=== PATIENT | male | born 1955 | race American Indian/Alaskan Native ===

== ENCOUNTER 2021-08-29 13:41 | Emergency (ER) | payer BC ==
--- NOTE | 2021-08-29 14:43 | XRay Report ---
RIGHT FOOT 3 VIEWS INDICATION / CLINICAL INFORMATION: wound R foot. COMPARISON: None available. FINDINGS: BONES / JOINT(S): No acute fracture or subluxation. Moderate DJD first metatarsophalangeal joint. Ero keiko involving the distal aspect of the distal phalanx of the second digit. SOFT TISSUES: Soft tissue wound/thickening overlying the distal aspect of the second digit. ADDITIONAL FINDINGS: Atherosclerotic vascular calcification. IMPRESSION: 1. Osteomyelitis involving the distal aspect of the distal phalanx of the second digit with overlying soft tissue changes. 2. Moderate DJD first metatarsophalangeal joint. Signer Name: Rony García MD Signed: 08/29/2021 2:38 PM Workstation Name: [id number]
[2021-08-29 14:50] LABS: Hemoglobin 13.9 gm/dl (11.8-15.2); Mean Corpuscular HGB Conc 34 % (32-34); Mean Corpuscular Volume 98 fl (84-94); Platelet Count 152 K/mm3 (140-440); Red Blood Count 4.17 M/mm3 (3.65-5.03); Red Cell Distribution Width 12.3 % (13.2-15.2)
[2021-08-29 15:13] LABS: Alanine Aminotransferase 13 units/L (7-56); Albumin 4.2 g/dL (3.9-5); BUN/Creatinine Ratio 11; Blood Urea Nitrogen 9 mg/dL (9-20); Calcium 9.1 mg/dL (8.4-10.2); Hemolysis Index 9
[2021-08-30] MEDS ORDERED: VANCOMYCIN/NS 1 GM/250 ML 1 GM/250 ML BAG IV ONE (07:13)
--- NOTE | 2021-08-30 07:19 | Emergency Department Report ---
- General Chief Complaint: Wound/Laceration Stated Complaint: INFECTION RT FOOT Time Seen by Provider: 08/30/21 06:42 Source: patient Mode of arrival: Ambulatory Limitations: No Limitations - History of Present Illness Initial Comments: 66-year-old male with a history of diabetes who now presents with a right second toe infection that started about 2 to 3 weeks ago after the toe got stuck his toe against an object. He did no seek medical attention at that time. Infection continue to get worse he says. No fever or chills reported. No other modifying or associated factors reported. - Related Data Allergies Allergy/AdvReac Type Severity Reaction Status Date / Time No Known Allergies Allergy Verified 08/29/21 14:04 ED Review of Systems ROS: Stated complaint: INFECTION RT FOOT Other details as noted in HPI Comment: All other systems reviewed and negative Musculoskeletal: other (right 2nd toe injury and infection ) ED Past Medical Hx - Past Medical History Previous Medical History?: Yes Hx Diabetes: Yes - Social History Smoking Status: Never Smoker Substance Use Type: None ED Physical Exam - General Limitations: No Limitations General appearance: alert, in no apparent distress - Head Head exam: Present: normal inspection - Eye Eye exam: Present: normal appearance Pupils: Present: normal accommodation - ENT ENT exam: Present: normal exam, normal orophraynx, mucous membranes moist - Respiratory Respiratory exam: Present: normal lung sounds bilaterally. Absent: respiratory distress, accessory muscle use - Cardiovascular Cardiovascular Exam: Present: regular rate, normal rhythm, normal heart sounds - GI/Abdominal GI/Abdominal exam: Present: soft, normal bowel sounds. Absent: distended, tenderness - Extremities Exam Extremities exam: Present: tenderness (right 2nd toe with black escars ), joint swelling - Back Exam Back exam: Absent: tenderness - Neurological Exam Neurological exam: Present: alert, oriented X3 - Psychiatric Psychiatric exam: Present: normal affect, normal mood - Skin Skin exam: Present: warm. Absent: cyanosis ED Course Vital Signs 08/29/21 08/30/21 08/30/21 14:01 05:24 05:25 Temperature 98.1 F 97.7 F Pulse Rate 65 69 Respiratory 16 18 Rate Blood Pressure Blood Pressure 119/31 [Left] O2 Sat by Pulse 98 96 96 Oximetry 08/30/21 08/30/21 08/30/21 05:27 07:29 09:00 Temperature Pulse Rate 66 72 Respiratory 13 14 Rate Blood Pressure 149/50 Blood Pressure 157/62 149/62 [Left] O2 Sat by Pulse 100 98 Oximetry - Reevaluation(s) Reevaluation #1: 08/30/21 07:21 here with chronic right 2nd toe infection -- concern for osteomyelitis so we will go ahead and get an x-ray--and order routine labs that includes CBC, and CMP for any systemic infection or electrolyte abnormality-- Reevaluation #2: 08/30/21 07:22 right 2nd toe with black escars Xray noted with FINDINGS: BONES / JOINT(S): No acute fracture or subluxation. Moderate DJD first metatarsophalangeal joint. Erosion involving the distal aspect of the distal phalanx of the second digit. SOFT TISSUES: Soft tissue wound/thickening overlying the distal aspect of the second digit. ADDITIONAL FINDINGS: Atherosclerotic vascular calcification. IMPRESSION: 1. Osteomyelitis involving the distal aspect of the distal phalanx of the second digit with overlying soft tissue changes. 2. Moderate DJD first metatarsophalangeal joint. 08/30/21 07:24 Will go ahead and start vancomycin and consider admission since this patient lik tamir may need surgical debridement. Reevaluation #3: 08/30/21 12:44 I was informed by this patient bedside nurse that he decide to sign out AMA while was taken care of another patient in the main ED. ED Medical Decision Making - Lab Data Result diagrams: 08/29/21 14:31 08/29/21 14:31 Critical care attestation.: If time is entered above; I have spent that time in minutes in the direct care of this critically ill patient, excluding procedure time. ED Disposition Clinical Impression: Osteomyelitis of second toe of right foot Disposition: 07 LEFT AGAINST MEDICAL ADVICE Is pt being admited?: No Does the pt Need Aspirin: No Condition: Stable Referrals: PRIMARY CARE, [Primary Care Provider] - 3-5 Days Time of Disposition: 12:45
[2021-08-30 07:50] LABS: Bilirubin,Urine Negative (Negative); Color,Urine Colorless (Yellow)
[2021-08-30 07:51] LABS: Blood,Urine Trace (Negative)
[2021-08-30 07:52] LABS: PH,Urine 6.5 (5.0-7.0); Protein,Urine <15 mg/dL mg/dL (Negative)
[2021-08-30 09:19] VITALS: BP 149/62
== END 2021-08-30 09:19 | disposition left against medical advice (07) ==
LOC: ED 13:41
DX: M86.8X8 Other osteomyelitis, other site (principal); E11.9 Type 2 diabetes mellitus without complications
CPT/HCPCS: 36415; 73630; 80053; 81001; 82140; 85027; 87040; 96365; 96366; 99284; J3370

== ENCOUNTER 2021-09-04 09:53 | Inpatient (IN) | payer BC ==
[2021-09-04] MEDS ORDERED: SODIUM CHLORIDE 0.9% 1000 ML 1,000 ML IV ONE (15:12)
[2021-09-04 15:57] LABS: Basophils # (Auto) 0.1 K/mm3 (0.0-0.1); Basophils % (Auto) 0.9 % (0.0-1.8); Eosinophils % (Auto) 0.3 % (0.0-4.3); Hematocrit 39.9 % (35.5-45.6); Hemoglobin 13.2 gm/dl (11.8-15.2); Lymphocytes # (Auto) 1.9 K/mm3 (1.2-5.4); Lymphocytes % (Auto) 16.5 % (13.4-35.0); Mean Corpuscular HGB Conc 33 % (32-34); Mean Corpuscular Volume 97 fl (84-94); Monocytes # (Auto) 0.9 K/mm3 (0.0-0.8); Monocytes % (Auto) 7.9 % (0.0-7.3); Platelet Count 286 K/mm3 (140-440); Red Blood Count 4.14 M/mm3 (3.65-5.03); Red Cell Distribution Width 11.9 % (13.2-15.2)
--- NOTE | 2021-09-04 16:52 | Emergency Department Report ---
- General Chief complaint: Wound/Laceration Stated complaint: OPEN SORE ON TOE W/ODOR Time Seen by Provider: 09/04/21 15:02 Source: patient Mode of arrival: Ambulatory Limitations: No Limitations - History of Present Illness Initial comments: This is a 66-year-old male nontoxic, well nourished in appearance, no acute signs of distress presents to the ED with c/o of necrosis and pain to left 2nd toe. Patient was seen here previously and was post be admitted for IV antibiotics and possibly surgical procedures per patient left against medical vice. Patient stated return today for worsening symptoms and now has redness and swelling to left foot/ankle area. Patient denies any pus or drainage. Patient denies any fever, chills, nausea, vomiting, chest pain, shortness of breath, headache or stiff neck. Patient denies any allergies. Location: L foot Severity: moderate Severity scale (0 -10): 8 Quality: aching Consistency: constant Improves with: none Worsens with: none Associated symptoms: denies other symptoms Treatments Prior to Arrival: none - Related Data Allergies Allergy/AdvReac Type Severity Reaction Status Date / Time No Known Allergies Allergy Verified 08/29/21 14:04 Abscess Boil HPI - HPI Chief Complaint: Wound/Laceration Stated Complaint: OPEN SORE ON TOE W/ODOR Time Seen by Provider: 09/04/21 15:02 Allergies/Adverse Reactions: Allergies Allergy/AdvReac Type Severity Reaction Status Date / Time No Known Allergies Allergy Verified 08/29/21 14:04 ED Review of Systems ROS: Stated complaint: OPEN SORE ON TOE W/ODOR Other details as noted in HPI Comment: All other systems reviewed and negative Constitutional: denies: chills, fever Eyes: denies: eye pain, eye discharge, vision change ENT: denies: ear pain, throat pain Respiratory: denies: cough, shortness of breath, wheezing Cardiovascular: denies: chest pain, palpitations Endocrine: no symptoms reported Gastrointestinal: denies: abdominal pain, nausea, diarrhea Genitourinary: denies: urgency, dysuria Musculoskeletal: denies: back pain, joint swelling, arthralgia Skin: denies: rash, lesions Neurological: denies: headache, weakness, paresthesias Psychiatric: denies: anxiety, depression Hematological/Lymphatic: denies: easy bleeding, easy bruising ED Past Medical Hx - Past Medical History Hx Diabetes: Yes - Social History Smoking Status: Never Smoker Substance Use Type: None ED Physical Exam - General Limitations: No Limitations General appearance: alert, in no apparent distress - Head Head exam: Present: atraumatic, normocephalic - Eye Eye exam: Present: normal appearance - Neck Neck exam: Present: normal inspection, full ROM. Absent: lymphadenopathy - Respiratory Respiratory exam: Absent: respiratory distress - Cardiovascular Cardiovascular Exam: Present: regular rate - Extremities Exam Extremities exam: Present: tenderness, pedal edema - Expanded Lower Extremity Exam Right Hip exam: Present: normal inspection, full ROM. Absent: tenderness, swelling Upper Leg exam: Present: normal inspection, full ROM. Absent: tenderness, swelling Knee exam: Present: normal inspection, full ROM. Absent: tenderness, swelling Lower Leg exam: Present: full ROM, tenderness, swelling, erythema. Absent: abrasion, laceration, ecchymosis, deformity, crepidus, dislocation, palpable cord, Nilson's sign Ankle exam: Present: full ROM, tenderness, swelling, erythema. Absent: abrasion, laceration, ecchymosis, deformity, crepidus, dislocation, anterior draw sign Foot/Toe exam: Present: full ROM, tenderness, swelling, erythema. Absent: abr asion Neuro vascular tendon exam: Present: no vascular compromise Gait: Positive: observed and limited by pain 1 - Necrosis present here - Back Exam Back exam: Present: normal inspection, full ROM - Neurological Exam Neurological exam: Present: alert, oriented X3 - Psychiatric Psychiatric exam: Present: normal affect, normal mood - Skin Skin exam: Present: warm, dry, intact, normal color. Absent: rash ED Course Vital Signs 09/04/21 11:58 Temperature 97.9 F Pulse Rate 60 Respiratory 16 Rate Blood Pressure 113/41 [Left] O2 Sat by Pulse 100 Oximetry - Reevaluation(s) Reevaluation #1: 09/04/21 16:53 Patient is speaking in full sentences with no signs of distress noted. - Consultations Consultation #1: 09/04/21 16:53 Patient has been consulted with Fabian Correa about patient history, physical exam, and labs and agrees to ED plan of care and admission. Consultation #2: 09/04/21 17:57 Patient has been consulted with Dr. Land (surgery) about patient history, physical exam, and labs and patient to get a doppler US with addition of Unasyn IV with vancomycin and agrees for admission to hospitalist. Consultation #3: 09/04/21 18:04 Patient has been consulted with Dr. Ziegler (hospitalist) about patient history, physical exam, and labs and accepts patient to services. ED Medical Decision Making - Lab Data Result diagrams: 09/04/21 15:27 09/04/21 15:27 Lab Results 09/04/21 09/04/21 09/04/21 Range/Units 11:59 15:27 15:27 WBC 11.5 H (4.5-11.0) K/mm3 RBC 4.14 (3.65-5.03) M/mm3 Hgb 13.2 (11.8-15.2) gm/dl Hct 39.9 (35.5-45.6) % MCV 97 H (84-94) fl MCH 32 (28-32) pg MCHC 33 (32-34) % RDW 11.9 L (13.2-15.2) % Plt Count 286 (140-440) K/mm3 Lymph % (Auto) 16.5 (13.4-35.0) % [place] % (Auto) 7.9 H (0.0-7.3) % Eos % (Auto) 0.3 (0.0-4.3) % Baso % (Auto) 0.9 (0.0-1.8) % Lymph # (Auto) 1.9 (1.2-5.4) K/mm3 [place] # (Auto) 0.9 H (0.0-0.8) K/mm3 Eos # (Auto) 0.0 (0.0-0.4) K/mm3 Baso # (Auto) 0.1 (0.0-0.1) K/mm3 Seg Neutrophils % 74.4 H (40.0-70.0) % Seg Neutrophils # 8.6 H (1.8-7.7) K/mm3 Sodium 139 (137-145) mmol/L Potassium 4.1 (3.6-5.0) mmol/L Chloride 99.6 (98-107) mmol/L Carbon Dioxide 31 H (22-30) mmol/L Anion Gap 13 mmol/L BUN 6 L (9-20) mg/dL Creatinine 0.7 L (0.8-1.3) mg/dL Estimated GFR > 60 ml/min BUN/Creatinine Ratio 9 % Glucose 167 H (75-100) mg/dL POC Glucose 214 H (70-105) mg/dL Calcium 9.6 (8.4-10.2) mg/dL Total Bilirubin 0.70 (0.1-1.2) mg/dL AST 13 (5-40) units/L ALT 10 (7-56) units/L Alkaline Phosphatase 77 (35-129) units/L Total Protein 7.8 (6.3-8.2) g/dL Albumin 4.1 (3.9-5) g/dL Albumin/Globulin Ratio 1.1 % - Radiology Data [facility] [address] [place] [address] XRay Report Signed Patient: MICHELLE GREEN MR#: [id number] 2 : 1955 Acct:[id number] Age/Sex: 66 / M ADM Date: 08/29/21 Loc: ED Attending Dr: Ordering Physician: SINGH PINON Date of Service: 08/29/21 Procedure(s): XR foot 3+V RT Accession Number(s): [id number] cc: SINGH PINON Fluoro Time In Minutes: RIGHT FOOT 3 VIEWS INDICATION / CLINICAL INFORMATION: wound R foot. COMPARISON: None available. FINDINGS: BONES / JOINT(S): No acute fracture or subluxation. Moderate DJD first metatarsophalangeal joint. Erosion involving the distal aspect of the distal phalanx of the second digit. SOFT TISSUES: Soft tissue wound/thickening overlying the distal aspect of the second digit. ADDITIONAL FINDINGS: Atherosclerotic vascular calcification. IMPRESSION: 1. Osteomyelitis involving the distal aspect of the distal phalanx of the second digit with overlying soft tissue changes. 2. Moderate DJD first metatarsophalangeal joint. Signer Name: Rony García MD Signed: 08/29/2021 2:38 PM Workstation Name: [email or web address] Transcribed By: ES Dictated By: Rony García MD Electronically Authenticated By: Rony García MD Signed Date/Time: 08/29/211437 DD/ 36 TD/TT: - Medical Decision Making 66-year-old male that presents with necrosis, osteomyelitis and cellulitis. Patient stable and was examined by me. Patient admitted with hospitalist. Consulted with surgery and ED attending which agrees to the ED plan of care. IV antibiotics initiated. Doppler ultrasound ordered. Vitals stable at admission. At time of admission, the patient does not seem toxic or ill in appearance. No acute signs of distress noted. Patient agrees to admission treatment plan of care. No further questions noted by the patient. Critical care attestation.: If time is entered above; I have spent that time in minutes in the direct care of this critically ill patient, excluding procedure time. ED Disposition Clinical Impression: Osteomyelitis of second toe of right foot, Necrosis of toe Cellulitis Qualifiers: Site of cellulitis: extremity Site of cellulitis of extremity: toe Laterality: right Qualified Code(s): L03.031 - Cellulitis of right toe Disposition: ADMITTED INPATIENT Is pt being admited?: Yes Condition: Stable Time of Disposition: 16:54
[2021-09-04 16:59] LABS: Alanine Aminotransferase 10 units/L (7-56); Albumin 4.1 g/dL (3.9-5); Blood Urea Nitrogen 6 mg/dL (9-20); Calcium 9.6 mg/dL (8.4-10.2); Hemolysis Index 1
[2021-09-04 17:00] LABS: BUN/Creatinine Ratio 9
[2021-09-04] MEDS ORDERED: VANCOMYCIN/NS 1 GM/250 ML 1 GM/250 ML BAG IV ONE (17:59)
--- NOTE | 2021-09-04 18:10 | History and Physical Report ---
History of Present Illness Chief complaint: My toe is sore History of present illness: 66 YO Male with DM complicated by Diabetic foot ulcer presents to ED for evaluation. Patient reports "my toe is sore". Patient states that for the past week he has experienced soreness in his right foot and right second toe. Marielena ent previous seen and evaluated in the emergency department for the aforementioned symptoms but left AMA prior to completion of work-up. Patient represents today for right second toe soreness and right foot redness and swelling. Patient transported to [facility] via private vehicle for further care and e valuation of the aforementioned symptoms. The patient was seen and evaluated in the emergency department. All lab and imaging studies reviewed. Patient underwent x-ray of right foot and found to have findings consistent with right second toe osteomyelitis complicated by right foot cellulitis. Surgery team consulted in ED. Patient admitted to medical floor due to increased risk of worsening symptoms and initiated on IV antibiotic therapy. Patient denies fever, chills, chest pain, palpitation, productive cough, skin rash, recent contact, known exposure to COVID-19. No prior admission for review. No medication listed at time of admission for reconciliation. Advanced care planning conducted in ED. Past History Past Medical History: diabetes Past Surgical History: No surgical history, Other (Reviewed) Social history: single. denies: smoking, alcohol abuse, prescription drug abuse Family history: diabetes, hypertension Medications and Allergies Allergies Allergy/AdvReac Type Severity Reaction Status Date / Time No Known Allergies Allergy Verified 08/29/21 14:04 Active Meds: Active Medications Ampicillin Sodium/Sulbactam Sodium (Unasyn/Ns 3 Gm/100 Ml) 3 gm in 100 mls @ 200 mls/hr IV ONCE ONE; Protocol Stop: 09/04/21 18:59 Vancomycin HCl (Vancomycin/Ns 1 Gm/250 Ml) 1 gm in 250 mls @ 167.007 mls/hr IV ONCE ONE; Protocol Stop: 09/04/21 19:28 Review of Systems Constitutional: no weight loss, no weight gain, no fever, no chills Ears, nose, mouth and throat: no ear pain, no tinnitis, no nasal congestion, no nasal discharge Cardiovascular: no chest pain, no orthopnea, no palpitations, no rapid/irregular heart beat, no edema, no syncope Respiratory: no cough, no cough with sputum, no excessive sputum, no hemoptysis, no shortness of breath Gastrointestinal: no abdominal pain, no nausea, no vomiting, no diarrhea, no constipation Genitourinary Male: no hematuria, no flank pain, no discharge, no urinary frequency, no urinary hesitancy Rectal: no pain, no incontinence, no bleeding Musculoskeletal: no neck stiffness, no shooting arm pain, no low back pain Integumentary: redness, color changes, other (Right second toe dry gangrene/nec rosis), no rash, no pruritis, no sores, no wounds Neurological: no head injury, no transient paralysis, no weakness, no parathesias, no tingling, no syncope Psychiatric: no anxiety, no sleep disturbances, no hypersomnia, no suicidal ideation Endocrine: no cold intolerance, no heat intolerance, no polyphagia, no excessive thirst, no polyuria Hematologic/Lymphatic: no easy bruising, no easy bleeding Exam - Constitutional Vitals: Temp Pulse Resp BP Pulse Ox 97.9 F 60 16 113/41 100 09/04/21 11:58 09/04/21 11:58 09/04/21 11:58 09/04/21 11:58 09/04/21 11:58 General appearance: Present: mild distress - EENT Eyes: Present: PERRL ENT: hearing intact, clear oral mucosa - Neck Neck: Present: supple, normal ROM - Respiratory Respiratory effort: normal Respiratory: bilateral: CTA - Cardiovascular Heart Sounds: Present: S1 & S2. Absent: rub, click - Extremities Extremities: pulses symmetrical, No edema Extremity abnormal: edema, black, tenderness, other (Right second toe) Peripheral Pulses: within normal limits - Abdominal General gastrointestinal: Present: soft, non-tender, non-distended, normal bowel sounds Male genitourinary: Present: normal - Integumentary Integumentary: Present: clear, warm, dry - Musculoskeletal Musculoskeletal: gait normal, strength equal bilaterally - Psychiatric Psychiatric: appropriate mood/affect, intact judgment & insight - Neurologic Neurologic: CNII-XII intact, moves all extremities Results - Labs CBC & Chem 7: 09/04/21 15:27 09/04/21 15:27 Labs: Abnormal lab results 09/04/21 09/04/21 09/04/21 Range/Units 11:59 15:27 15:27 WBC 11.5 H (4.5-11.0) K/mm3 MCV 97 H (84-94) fl RDW 11.9 L (13.2-15.2) % [place] % (Auto) 7.9 H (0.0-7.3) % [place] # (Auto) 0.9 H (0.0-0.8) K/mm3 Seg Neutrophils % 74.4 H (40.0-70.0) % Seg Neutrophils # 8.6 H (1.8-7.7) K/mm3 Carbon Dioxide 31 H (22-30) mmol/L BUN 6 L (9-20) mg/dL Creatinine 0.7 L (0.8-1.3) mg/dL Glucose 167 H (75-100) mg/dL POC Glucose 214 H (70-105) mg/dL Assessment and Plan - Patient Problems (1) Osteomyelitis of second toe of right foot Current Visit: No Status: Acute Plan to address problem: X-ray right foot, surgery team consulted, empiric IV antibiotic therapy, supportive care. Wound care (2) Diabetes Current Visit: Yes Status: Acute Plan to address problem: Consistent carbohydrate diet, Accu-Chek, insulin protocol, hypoglycemia protocol (3) Cellulitis Current Visit: No Status: Acute Qualifiers: Site of cellulitis: extremity Site of cellulitis of extremity: toe Laterality: right Qualified Code(s): L03.031 - Cellulitis of right toe Plan to address problem: CBC, x-ray right foot, IV antibiotic therapy, supportive care. Serial physical exam. (4) DVT prophylaxis Current Visit: Yes Status: Acute Plan to address problem: SCD to bilateral lower extremities while in bed patient is ambulatory (5) Advance care planning Current Visit: Yes Status: Acute Plan to address problem: Disease education conducted, care plan discussed, diagnoses discussed, prognosis discussed, patient is full code. Patient knowledges understanding and agreement with care plan, +30 minutes. (6) Preventative health care Current Visit: Yes Status: Acute Plan to address problem: Patient counseled regarding consistent carbohydrate diet, meal planning, outpatient follow-up with primary care physician for all age and risk factor appropriate screening test. +30 minutes.
[2021-09-04] MEDS ORDERED: ALBUTEROL 2.5 MG/3 ML NEBU IH PRN (18:11)
[2021-09-04] MEDS ORDERED: AMPICILLIN/SULBACTA 3GM/100ML 3 GM/100 ML BAG IV ONE (18:30)
[2021-09-04] MEDS ORDERED: HYDROmorphone 0.5 MG/0.5 ML INJ IV PRN (18:30)
[2021-09-04] MEDS ORDERED: DEXTROSE 50% IN WATER (25GM) 50 ML SYRINGE IV PRN (18:30)
[2021-09-04] MEDS ORDERED: oxyCODONE /ACETAMINOPHEN 5-325MG TAB PO PRN (18:30)
[2021-09-04] MEDS ORDERED: ONDANSETRON 4 MG/2 ML INJ IV PRN (18:30)
--- NOTE | 2021-09-04 22:03 | Vascular Lab Report ---
DUPLEX DOPPLER LOWER EXTREMITY VEINS, RIGHT INDICATION / CLINICAL INFORMATION: right leg pain and swelling. TECHNIQUE: Duplex doppler imaging was performed through the veins of the right lower extremity using venous compression and other maneuvers. COMPARISON: None available. FINDINGS: RIGHT COMMON FEMORAL VEIN: Negative. RIGHT FEMORAL VEIN: Negative. RIGHT POPLITEAL VEIN: Negative. RIGHT CALF VEINS: Negative. ADDITIONAL FINDINGS: None. IMPRESSION: 1. No sonographic evidence for DVT in the right lower extremity. Signer Name: Nilson Jiménez DO Signed: 09/04/2021 9:59 PM Workstation Name: [id number]
[2021-09-04] MEDS: INSULIN LISPRO 100 UNIT/ML SUB-Q SCH (23:05)
[2021-09-05] MEDS: AMPICILLIN/SULBACTA 3GM/100ML 3 GM/100 ML BAG IV SCH ×4 (00:56→17:33)
[2021-09-05] MEDS: SODIUM CHLORIDE 0.9% 1000 ML 1,000 ML IV SCH (00:57)
[2021-09-05 05:53] LABS: Basophils # (Auto) 0.1 K/mm3 (0.0-0.1); Basophils % (Auto) 1.1 % (0.0-1.8); Eosinophils # (Auto) 0.1 K/mm3 (0.0-0.4); Eosinophils % (Auto) 0.6 % (0.0-4.3); Hematocrit 37.1 % (35.5-45.6); Hemoglobin 12.7 gm/dl (11.8-15.2); Lymphocytes # (Auto) 1.8 K/mm3 (1.2-5.4); Mean Corpuscular HGB Conc 34 % (32-34); Mean Corpuscular Volume 96 fl (84-94); Monocytes # (Auto) 0.8 K/mm3 (0.0-0.8); Platelet Count 265 K/mm3 (140-440); Red Blood Count 3.87 M/mm3 (3.65-5.03); Red Cell Distribution Width 11.8 % (13.2-15.2)
[2021-09-05 06:12] LABS: Blood Urea Nitrogen 5 mg/dL (9-20); Calcium 8.8 mg/dL (8.4-10.2); Hemolysis Index 7
[2021-09-05 06:19] LABS: BUN/Creatinine Ratio 8
[2021-09-05] MEDS: INSULIN LISPRO 100 UNIT/ML SUB-Q SCH ×4 (10:22→22:04)
--- NOTE | 2021-09-05 12:04 | Consultation ---
History of Present Illness Consult date: 09/05/21 Chief complaint: right 2nd toe infection - History of present illness History of present illness: 66 yo M with hx of diabetes who presents to ER with worsening pain in right 2nd toe. Patient states he bumped the toe several weeks ago and started to notice pain. He was seen by a room service waiter as an outpatient and some necrotic skin at the tip of the second toe was debrided in the office. He started to notice more pain and went to [facility] ER on 08/29/21. W/u included xray of the foot which revealed osteomyelitis of the right 2nd toe. Patient left AMA prior to completion of w/u. He returned to ER yesterday due to increased swelling, pain, redness of the right foot. The toe has since turned black. He states he has never had anything like this before. He has a family hx of DM and states his mother needed b/l BKAs 2/2 DM. He is on insulin at home and states he is compliant. He feels his DM is well controlled. Surgery consulted for diabetic foot wound. Past History Past Medical History: diabetes Past Surgical History: No surgical history, Other (Reviewed) Social history: single. denies: smoking, alcohol abuse, prescription drug abuse Family history: diabetes, hypertension Medications and Allergies Allergies Allergy/AdvReac Type Severity Reaction Status Date / Time No Known Allergies Allergy Verified 08/29/21 14:04 Home Medications Medication Instructions Recorded Confirmed Last Taken Type AtorvaSTATin [Lipitor] 10 mg PO QHS 09/05/21 09/05/21 Unknown History Cholecalciferol (Vitamin D3) 50,000 unit PO QWEEK 09/05/21 09/05/21 Unknown History [Vitamin D3 50,000UNIT CAP] Insulin Lispro Prot/Lispro 0 unit SQ BID 09/05/21 09/05/21 Unknown History [HumaLOG MIX 75/25] atenoloL [Tenormin] 25 mg PO DAILY 09/05/21 09/05/21 Unknown History ramipriL [Ramipril] 5 mg PO QDAY 09/05/21 09/05/21 Unknown History Active Meds: Active Medications Acetaminophen (Acetaminophen 325 Mg Tab) 650 mg PO Q4H PRN PRN Reason: Pain MILD(1-3)/Fever >100.5/LANIER Albuterol (Albuterol 2.5 Mg/3 Ml Nebu) 2.5 mg IH Q4HRT PRN PRN Reason: Shortness Of Breath Dextrose (Dextrose 50% In Water (25gm) 50 Ml Syringe) 50 ml IV Q30MIN PRN; Protocol PRN Reason: Hypoglycemia Hydromorphone HCl (Hydromorphone 0.5 Mg/0.5 Ml Inj) 0.5 mg IV Q13H PRN PRN Reason: Pain , Severe (7-10) Sodium Chloride (Nacl 0.9% 1000 Ml) 1,000 mls @ 42 mls/hr IV DIRECT NAZ Last Admin: 09/05/21 00:57 Dose: 42 mls/hr Ampicillin Sodium/Sulbactam Sodium (Unasyn/Ns 3 Gm/100 Ml) 3 gm in 100 mls @ 200 mls/hr IV Q6H [facility]; Protocol Last Infusion: 09/05/21 06:58 Dose: Infused Insulin Human Lispro (Insulin Lispro 100 Unit/Ml) 0 unit SUB-Q ACHS [facility]; Protocol Last Admin: 09/05/21 10:22 Dose: Not Given Ondansetron HCl (Ondansetron 4 Mg/2 Ml Inj) 4 mg IV Q8H PRN PRN Reason: Nausea And Vomiting Oxycodone/Acetaminophen (Oxycodone /Acetaminophen 5-325mg Tab) 1 tab PO Q6H PRN PRN Reason: Pain, Moderate (4-6) Sodium Chloride (Sodium Chloride 0.9% 10 Ml Flush Syringe) 10 ml IV BID [facility] Last Admin: 09/05/21 00:52 Dose: Not Given Sodium Chloride (Sodium Chloride 0.9% 10 Ml Flush Syringe) 10 ml IV PRN PRN PRN Reason: LINE FLUSH Review of Systems All systems: negative (10 pt ros performed and negative except for HPI) Exam Vital Signs Temp Pulse Resp BP Pulse Ox 97.9 F 60 16 113/41 100 09/04/21 11:58 09/04/21 11:58 09/04/21 11:58 09/04/21 11:58 09/04/21 11:58 Narrative exam: Gen; AAOx3. NAD ENT: no scleral icterus or conjunctival pallor CV: S1, S2+ Resp; even and unlabored Ext: RLE warm. There is edema of the dorsal aspect of the right foot with cellulitis. There is dry gangrene of the distal aspect of the right 2nd toe and purulent drainage from the medial aspect at the base. +TTP over MTP of right 2nd toe. Cannot palpate distal pulses. Results - Labs 09/05/21 05:38 09/05/21 05:38 Abnormal lab results 09/04/21 09/04/21 09/04/21 Range/Units 11:59 15:27 15:27 WBC 11.5 H (4.5-11.0) K/mm3 MCV 97 H (84-94) fl MCH (28-32) pg RDW 11.9 L (13.2-15.2) % [place] % (Auto) 7.9 H (0.0-7.3) % [place] # (Auto) 0.9 H (0.0-0.8) K/mm3 Seg Neutrophils % 74.4 H (40.0-70.0) % Seg Neutrophils # 8.6 H (1.8-7.7) K/mm3 Carbon Dioxide 31 H (22-30) mmol/L BUN 6 L (9-20) mg/dL Creatinine 0.7 L (0.8-1.3) mg/dL Glucose 167 H (75-100) mg/dL POC Glucose 214 H (70-105) mg/dL 09/04/21 09/05/21 09/05/21 Range/Units 22:56 05:38 05:38 WBC (4.5-11.0) K/mm3 MCV 96 H (84-94) fl MCH 33 H (28-32) pg RDW 11.8 L (13.2-15.2) % [place] % (Auto) 8.0 H (0.0-7.3) % [place] # (Auto) (0.0-0.8) K/mm3 Seg Neutrophils % 72.3 H (40.0-70.0) % Seg Neutrophils # (1.8-7.7) K/mm3 Carbon Dioxide (22-30) mmol/L BUN 5 L (9-20) mg/dL Creatinine 0.6 L (0.8-1.3) mg/dL Glucose 153 H (75-100) mg/dL POC Glucose 128 H (70-105) mg/dL 09/05/21 09/05/21 Range/Units 07:19 11:01 WBC (4.5-11.0) K/mm3 MCV (84-94) fl MCH (28-32) pg RDW (13.2-15.2) % [place] % (Auto) (0.0-7.3) % [place] # (Auto) (0.0-0.8) K/mm3 Seg Neutrophils % (40.0-70.0) % Seg Neutrophils # (1.8-7.7) K/mm3 Carbon Dioxide (22-30) mmol/L BUN (9-20) mg/dL Creatinine (0.8-1.3) mg/dL Glucose (75-100) mg/dL POC Glucose 155 H 210 H (70-105) mg/dL Diabetes panel 09/04/21 09/05/21 Range/Units 15:27 05:38 Sodium 139 140 (137-145) mmol/L Potassium 4.1 3.9 (3.6-5.0) mmol/L Chloride 99.6 102.5 (98-107) mmol/L Carbon Dioxide 31 H 28 (22-30) mmol/L BUN 6 L 5 L (9-20) mg/dL Creatinine 0.7 L 0.6 L (0.8-1.3) mg/dL Glucose 167 H 153 H (75-100) mg/dL Calcium 9.6 8.8 (8.4-10.2) mg/dL AST 13 (5-40) units/L ALT 10 (7-56) units/L Alkaline Phosphatase 77 (35-129) units/L Total Protein 7.8 (6.3-8.2) g/dL Albumin 4.1 (3.9-5) g/dL Calcium panel 09/04/21 09/05/21 Range/Units 15:27 05:38 Calcium 9.6 8.8 (8.4-10.2) mg/dL Albumin 4.1 (3.9-5) g/dL Pituitary panel 09/04/21 09/05/21 Range/Units 15:27 05:38 Sodium 139 140 (137-145) mmol/L Potassium 4.1 3.9 (3.6-5.0) mmol/L Chloride 99.6 102.5 (98-107) mmol/L Carbon Dioxide 31 H 28 (22-30) mmol/L BUN 6 L 5 L (9-20) mg/dL Creatinine 0.7 L 0.6 L (0.8-1.3) mg/dL Glucose 167 H 153 H (75-100) mg/dL Calcium 9.6 8.8 (8.4-10.2) mg/dL Adrenal panel 09/04/21 09/05/21 Range/Units 15:27 05:38 Sodium 139 140 (137-145) mmol/L Potassium 4.1 3.9 (3.6-5.0) mmol/L Chloride 99.6 102.5 (98-107) mmol/L Carbon Dioxide 31 H 28 (22-30) mmol/L BUN 6 L 5 L (9-20) mg/dL Creatinine 0.7 L 0.6 L (0.8-1.3) mg/dL Glucose 167 H 153 H (75-100) mg/dL Calcium 9.6 8.8 (8.4-10.2) mg/dL Total Bilirubin 0.70 (0.1-1.2) mg/dL AST 13 (5-40) units/L ALT 10 (7-56) units/L Alkaline Phosphatase 77 (35-129) units/L Total Protein 7.8 (6.3-8.2) g/dL Albumin 4.1 (3.9-5) g/dL - Imaging Additional studies: R foot xray U/s venous RLE Assessment and Plan 66 yo M with 1. Diabetes mellitus with right foot infection 2. Cellulitis right foot 3. Gangrene of right 2nd toe 4. Osteomyelitis right 2nd toe Plan: 1. diabetic diet 2. strict glucose control 3. obtain HbA1c 4. Obtain arterial duplex RLE. Suspect PAD. 5. Local wound care 6. Recommend amputation of right 2nd toe - will place consult to Dr. Sparks 7. IV abx - consider ID consult 8. Discussed details of imaging results and plan with patient and his sister at bedside. All questions answered. Thank you, please call with questions.
--- NOTE | 2021-09-05 16:21 | Vascular Lab Report ---
DUPLEX DOPPLER LOWER EXTREMITY ARTERIAL, RIGHT INDICATION / CLINICAL INFORMATION: right second toe gangrene. TECHNIQUE: Arterial duplex examination of the right lower extremity performed using B-mode, color krys w and spectral Doppler assessment. FINDINGS: RIGHT: Significant atherosclerotic plaque. Common Femoral Artery: PSV 117 cm/sec. Triphasic waveform. Proximal SFA: PSV 68 cm/sec. Monophasic waveform. Mid SFA: PSV 82 cm/sec. Monophasic waveform. Distal SFA: PSV 55 cm/sec. Monophasic waveform. Popliteal Artery: PSV 9 cm/sec. Monophasic waveform. Posterior tibial artery: PSV 42 cm/sec. Monophasic waveform. Dorsalis Pedis Artery: PSV 6 cm/sec. Monophasic waveform. ADDITIONAL FINDINGS: None. RIGHT EMILIE: Not calculated. IMPRESSION: 1. Findings suggestive of hemodynamically significant peripheral arterial disease including transitio n to abnormal monophasic waveforms from the mid right thigh to the crural arteries of the foreleg. da mpened velocities, as described above. Ankle-Brachial Index (EMILIE): - Calcified arteries > 1.4 - Normal = 0.9-1.4 - Mild PAD = 0.7-0.89 - Moderate PAD = 0.51-0.69 - Severe PAD < 0.5 Doppler Waveform: - Triphasic is normal. - Biphasic is abnormal if clear transition from triphasic signal along vascular tree. - Monophasic is abnormal. Scribed by: Zeenat Yuen RDMS, JOHNT, EMILY Scribed: 09/05/2021 1:25 PM I have reviewed the images, agree with this report, and edited this report as needed. Signer Name: Hubert Payne MD Signed: 09/05/2021 4:16 PM Workstation Name: [id number]
--- NOTE | 2021-09-05 20:10 | Consultation ---
History of Present Illness - Reason for Consult Consult date: 09/05/21 Peripheral Vascular Disease with Gangrene Requesting physician: MEHNAZ NULL - History of Present Illness The patient is a 66-year-old male with a history of diabetes who states that approximately 2 weeks ago he hit his second toe resulting in a wound. He initially presented to the emergency department on 08/29/2021 however he left AMA. He represented today with complaints of the wound progressively worsening with pain and turning black. He denies any fever or chills. He denies any history o f previous claudication. He states he smoked in his 20s however he does not currently smoke. He has no additional complaints at this time. Past History Past Medical History: diabetes Past Surgical History: No surgical history Social history: single. denies: smoking, alcohol abuse, prescription drug abuse Family history: diabetes, hypertension Medications and Allergies Allergies Allergy/AdvReac Type Severity Reaction Status Date / Time No Known Allergies Allergy Verified 08/29/21 14:04 Home Medications Medication Instructions Recorded Confirmed Last Taken Type AtorvaSTATin [Lipitor] 10 mg PO QHS 09/05/21 09/05/21 Unknown History Cholecalciferol (Vitamin D3) 50,000 unit PO QWEEK 09/05/21 09/05/21 Unknown History [Vitamin D3 50,000UNIT CAP] Insulin Lispro Prot/Lispro 0 unit SQ BID 09/05/21 09/05/21 Unknown History [HumaLOG MIX 75/25] atenoloL [Tenormin] 25 mg PO DAILY 09/05/21 09/05/21 Unknown History ramipriL [Ramipril] 5 mg PO QDAY 09/05/21 09/05/21 Unknown History Active Meds: Active Medications Acetaminophen (Acetaminophen 325 Mg Tab) 650 mg PO Q4H PRN PRN Reason: Pain MILD(1-3)/Fever >100.5/LANIER Albuterol (Albuterol 2.5 Mg/3 Ml Nebu) 2.5 mg IH Q4HRT PRN PRN Reason: Shortness Of Breath Dextrose (Dextrose 50% In Water (25gm) 50 Ml Syringe) 50 ml IV Q30MIN PRN; Protocol PRN Reason: Hypoglycemia Hydromorphone HCl (Hydromorphone 0.5 Mg/0.5 Ml Inj) 0.5 mg IV Q13H PRN PRN Reason: Pain , Severe (7-10) Sodium Chloride (Nacl 0.9% 1000 Ml) 1,000 mls @ 42 mls/hr IV DIRECT [facility] Last Admin: 09/05/21 00:57 Dose: 42 mls/hr Ampicillin Sodium/Sulbactam Sodium (Unasyn/Ns 3 Gm/100 Ml) 3 gm in 100 mls @ 200 mls/hr IV Q6H [facility]; Protocol Last Infusion: 09/05/21 19:39 Dose: Infused Insulin Human Lispro (Insulin Lispro 100 Unit/Ml) 0 unit SUB-Q ACHS [facility]; Protocol Last Admin: 09/05/21 17:37 Dose: 2 unit Ondansetron HCl (Ondansetron 4 Mg/2 Ml Inj) 4 mg IV Q8H PRN PRN Reason: Nausea And Vomiting Oxycodone/Acetaminophen (Oxycodone /Acetaminophen 5-325mg Tab) 1 tab PO Q6H PRN PRN Reason: Pain, Moderate (4-6) Sodium Chloride (Sodium Chloride 0.9% 10 Ml Flush Syringe) 10 ml IV BID [facility] Last Admin: 09/05/21 12:32 Dose: 10 ml Sodium Chloride (Sodium Chloride 0.9% 10 Ml Flush Syringe) 10 ml IV PRN PRN PRN Reason: LINE FLUSH Review of Systems All systems: negative Exam - Constitutional Vitals: Temp Pulse Resp BP Pulse Ox 99.2 F 68 18 162/69 100 09/05/21 16:21 09/05/21 16:21 09/05/21 16:21 09/05/21 16:21 09/05/21 16:21 General appearance: Present: no acute distress - Respiratory Respiratory effort: normal - Cardiovascular Rhythm: regular - Extremities Extremity abnormal: edema (Mild edema of the right leg and foot), black (Dry gangrene of the distal phalanx on the right second toe), pulses diminished (Nonpalpable pedal pulses bilaterally) - Abdominal General gastrointestinal: Present: soft Male genitourinary: Present: deferred - Rectal Rectal Exam: deferred Results - Labs CBC & Chem 7: 09/05/21 05:38 09/05/21 05:38 Labs: Abnormal lab results 09/04/21 09/05/21 09/05/21 Range/Units 22:56 05:38 05:38 MCV 96 H (84-94) fl MCH 33 H (28-32) pg RDW 11.8 L (13.2-15.2) % [place] % (Auto) 8.0 H (0.0-7.3) % Seg Neutrophils % 72.3 H (40.0-70.0) % BUN 5 L (9-20) mg/dL Creatinine 0.6 L (0.8-1.3) mg/dL Glucose 153 H (75-100) mg/dL POC Glucose 128 H (70-105) mg/dL 09/05/21 09/05/21 09/05/21 Range/Units 07:19 11:01 17:19 MCV (84-94) fl MCH (28-32) pg RDW (13.2-15.2) % [place] % (Auto) (0.0-7.3) % Seg Neutrophils % (40.0-70.0) % BUN (9-20) mg/dL Creatinine (0.8-1.3) mg/dL Glucose (75-100) mg/dL POC Glucose 155 H 210 H 171 H (70-105) mg/dL - Imaging and Cardiology Venous US: other (Right lower extremity arterial duplex was reviewed) Assessment and Plan The patient is a 66-year-old male with a history of diabetes and peripheral vascular disease who presented with gangrene involving the right second toe. He was evaluated by general surgery and an amputation of the right second toe was recommended. He had an arterial duplex of the right leg performed today which revealed monophasic flow throughout the SFA and the remainder of the lower extremity. B-mode demonstrated heavily calcified plaque within the SFA and popliteal artery as well as the tibial vessels. He is in need of a diagnostic angiogram and possible intervention prior to amputation of the toe to ensure adequate healing of his amputation. I discussed this plan as well as the risk, benefits, and alternative procedures with the patient as well as his sister via cellular phone. They both expressed understanding and the patient would like to proceed. He will be made n.p.o. after midnight and placed on the Clinical Faculty schedule for tomorrow.
[2021-09-06] MEDS: AMPICILLIN/SULBACTA 3GM/100ML 3 GM/100 ML BAG IV SCH ×3 (00:45→12:40)
--- NOTE | 2021-09-06 06:56 | Progress Note ---
Assessment and Plan Assessment and Plan - Patient Problems (1) Osteomyelitis of second toe of right foot Current Visit: No Status: Acute Plan to address problem: Gangrene of the right second toe Needs arterial studies to assess the peripheral arterial disease Surgery and vascular surgery consults appreciated Continue IV antibiotics (2) Diabetes Current Visit: Yes Status: Acute Plan to address problem: Consistent carbohydrate diet, Accu-Chek, insulin protocol, hypoglycemia protocol (3) Cellulitis Current Visit: No Status: Acute Qualifiers: Site of cellulitis: extremity Site of cellulitis of extremity: toe Laterality: right Qualified Code(s): L03.031 - Cellulitis of right toe Plan to address problem: CBC, x-ray right foot, IV antibiotic therapy, supportive care. Serial physical exam. (4) DVT prophylaxis Current Visit: Yes Status: Acute Plan to address problem: SCD to bilateral lower extremities while in bed patient is ambulatory (5) Advance care planning Current Visit: Yes Status: Acute Plan to address problem: Disease education conducted, care plan discussed, diagnoses discussed, prognosis discussed, patient is full code. Patient knowledges understanding and agreement with care plan, +30 minutes. (6) Preventative health care Current Visit: Yes Status: Acute Plan to address problem: Patient counseled regarding consistent carbohydrate diet, meal planning, outpatient follow-up with primary care physician for all age and risk factor appropriate screening test. +30 minutes. Subjective Date of service: 09/05/21 Principal diagnosis: Gangrene of the second toe of the right foot Interval history: 66 YO Male with DM complicated by Diabetic foot ulcer presents to ED for evaluation. Patient reports "my toe is sore". Patient states that for the past week he has experienced soreness in his right foot and right second toe. Patient previous seen and evaluated in the emergency department for the aforementioned symptoms but left AMA prior to completion of work-up. Patient represents today for right second toe soreness and right foot redness and swelling. Patient transported to [facility] via private vehicle for further care and evaluation of the aforementioned symptoms. The patient was seen and evaluated in the emergency department. All lab and imaging studies reviewed. Patient underwent x-ray of right foot and found to have findings consistent with right second toe osteomyelitis complicated by right foot cellulitis. Surgery team consulted in ED. Patient admitted to medical floor due to increased risk of wo rsening symptoms and initiated on IV antibiotic therapy. Patient denies fever, chills, chest pain, palpitation, productive cough, skin rash, recent contact, known exposure to COVID-19. No prior admission for review. No medication listed at time of admission for reconciliation. Advanced care planning conducted in ED. 09/05/2021 gangrene of the second toe of right foot Surgery and vascular surgery consult appreciated Objective - Constitutional Vitals: Vital Signs - 12hr 09/05/21 09/06/21 23:20 05:29 Temperature 98.9 F 99.4 F Pulse Rate 68 71 Respiratory 20 20 Rate Blood Pressure 155/59 145/46 O2 Sat by Pulse 95 97 Oximetry General appearance: Present: no acute distress, well-nourished - EENT Eyes: PERRL, EOM intact ENT: hearing intact, clear oral mucosa Ears: bilateral: normal - Neck Neck: supple, normal ROM - Respiratory Respiratory effort: normal Respiratory: bilateral: CTA - Breasts Breasts: normal - Cardiovascular Heart rate: 78 Rhythm: regular Heart Sounds: Present: S1 & S2. Absent: gallop, rub Extremities: pulses intact, No edema, normal color, Full ROM, abnormal (Gangrene of the second toe of the right foot) Extremity abnormal: other (RLE warm. There is edema of the dorsal aspect of the right foot with cellulitis. There is dry gangrene of the distal aspect of the right 2nd toe and purulent drainage from the medial aspect at the base. +TTP over MTP of right 2nd toe. Cannot palpate distal pulses.) - Gastrointestinal General gastrointestinal: Present: soft, non-tender, non-distended, normal bowel sounds - Genitourinary Male genitourinary: normal - Integumentary Integumentary: clear, warm, dry - Musculoskeletal Musculoskeletal: 1, strength equal bilaterally - Neurologic Neurologic: moves all extremities - Psychiatric Psychiatric: memory intact, appropriate mood/affect, intact judgment & insight - Labs CBC & Chem 7: 09/05/21 05:38 09/05/21 05:38 Labs: Abnormal lab results 09/05/21 09/05/21 09/05/21 Range/Units 07:19 11:01 17:19 POC Glucose 155 H 210 H 171 H (70-105) mg/dL 09/05/21 09/06/21 Range/Units 21:39 05:30 POC Glucose 198 H 183 H (70-105) mg/dL
[2021-09-06] MEDS: INSULIN LISPRO 100 UNIT/ML SUB-Q SCH ×4 (07:30→22:00)
[2021-09-06] MEDS ORDERED: SODIUM CHLORIDE 0.9% 500 ML 500 ML ONE (08:18)
[2021-09-06] MEDS: fentaNYL 100 MCG/2 ML INJ ONE ×2 (08:28→09:17)
[2021-09-06] MEDS: MIDAZOLAM 2 MG/2 ML INJ ONE ×2 (08:28→09:16)
[2021-09-06] MEDS: LIDOCAINE (2%) 20 MG/1 ML VIAL 50 ML MDV INFILTRATI ONE ×2 (08:28→09:19)
[2021-09-06] MEDS ORDERED: HEPARIN 10,000 UNITS/10 ML VIAL ONE (08:34)
[2021-09-06] MEDS ORDERED: VERAPAMIL 5 MG/2 ML INJ ONE (08:35)
[2021-09-06] MEDS ORDERED: NITROGLYCERIN SYRINGE 0 ML ONE (08:35)
[2021-09-06] MEDS: HEPARIN/NS 5000 UNIT/500ML 1,000 ML IR ONE ×2 (09:08→09:20)
--- NOTE | 2021-09-06 10:25 | Operative Report ---
Operative Report Operative Report: Exam: Right lower extremity angiography Clinical indication: Patient with a history of gangrenous toes on the right foot. Ultrasound demonstrating decreased flow within the SFA Date: 09/06/2021 Procedure: Following an explanation of the risks, benefits and alternatives; written informed consent was obtained. The patient was brought to the angiographic suite and placed in supine position on the examination table. Initial ultrasound evaluation of the left groin demonstrated a patent left common femoral artery. The patient's groin was prepped and draped in the usual sterile fashion. 2% lidocaine was used for anesthesia. Under ultrasound guidance, the left common femoral artery was cannulated using a 7 cm 21-gauge needle. A 0.018 guidewire was advanced centrally. The needle was removed and a micro sheath placed. The 0.018 guidewire was exchanged for a 0.035 guidewire under fluoroscopy and the micro sheath exchanged for a 5 [place] vascular sheath. An Omni Flush catheter was then advanced over the guidewire to the distal abdominal aorta. Contrast was injected which demonstrates that the distal abdominal aorta, bilateral common iliac, bilateral external iliac arteries are widely patent. The guidewire and Omni Flush catheter were then utilized to cross the bifurcation and additional angiography was performed with the catheter placed in the external iliac artery on the right. Multiple angulations were utilized ultimately, crosstable lateral demonstrated the bifurcation of SFA and profunda the best. There is scattered atherosclerotic disease within the common femoral artery. The profunda is dominant measuring 8 to 9 mm in diameter. There is a focal 1 cm sized marble of exophytic calcific atherosclerotic disease just distal to the origin of the SFA. This occludes the origin to approximately 99%. The 5 [place] sheath was then exchanged over a guidewire for a 6 [place] 45 cm sheath. Multiple attempts to cross the exophytic calcific disease in the proximal SFA were unsuccessful secondary to the bulky nature of the disease. Ultimately, decision was made to terminate the procedure and the catheters, guidewires and sheaths were removed and hemostasis achieved in the left groin using manual compression. A sterile dressing was applied. The patient tolerated the procedure well. There were no immediate postprocedure complications. Conscious sedation was performed under the guidance of radiologic nursing. Continuous cardiopulmonary monitoring was utilized. Impression: Right lower extremity angiography demonstrating 1cm marble of exophytic calcific atherosclerotic disease just distal to the origin of the SFA causing significantly decreased flow distally. This is not ideally amenable to percutaneous revascularization and the patient will be scheduled for right common femoral artery and SFA endarterectomy tomorrow scheduling in the OR permitting.
--- NOTE | 2021-09-06 10:34 | Progress Note ---
Assessment and Plan Assessment and plan: The patient is a 66-year-old male with a history of diabetes mellitus type II who states that approximately 2 weeks ago he hit his second toe resulting in a wound. He initially presented to the emergency department on 08/29/2021 however he left AMA. W/u included xray of the foot which revealed osteomyelitis of the right 2nd toe. He represented on 09/05/2021 with complaints of the wound progressively worsening with pain and turning black. He denied any fever or chills. He denied any history of previous claudication. He stated he smoked in his 20s however he does not currently smoke. Gangrene of right second toe Osteomyelitis of right second toe Right foot cellulitis Diabetes mellitus type 2 09/06/2021. Patient for right lower extremity angiography per vascular surgery. Right lower extremity angiography demonstrating 1cm marble of exophytic calcific atherosclerotic disease just distal to the origin of the SFA causing significantly decreased flow distally. This is not ideally amenable to percutaneous revascularization and the patient will be scheduled for right common femoral artery and SFA endarterectomy tomorrow scheduling in the OR permitting. Continue tight glycemic control. Follow-up hemoglobin A1c. Continue local wound care. Surgery following. ID consulted. Continue IV antibiotics of Unasyn for now. History Interval history: No new issues overnight Hospitalist Physical - Constitutional Vitals: Temp Pulse Resp BP Pulse Ox 99.4 F 71 20 145/46 97 09/06/21 05:29 09/06/21 05:29 09/06/21 05:29 09/06/21 05:29 09/06/21 05:29 General appearance: Present: no acute distress, well-nourished - EENT Eyes: Present: PERRL, EOM intact ENT: hearing intact, clear oral mucosa, dentition normal - Neck Neck: Present: supple, normal ROM - Respiratory Respiratory effort: normal Respiratory: bilateral: CTA - Cardiovascular Rhythm: regular Heart Sounds: Present: S1 & S2. Absent: gallop, rub - Extremities Extremities: no ischemia, No edema, Full ROM - Abdominal General gastrointestinal: soft, non-tender, non-distended, normal bowel sounds - Integumentary Integumentary: Present: clear, warm, dry - Neurologic Neurologic: CNII-XII intact, moves all extremities Results - Labs CBC & Chem 7: 09/05/21 05:38 09/05/21 05:38 Labs: Laboratory Last Values WBC 9.8 K/mm3 (4.5-11.0) 09/05/21 05:38 RBC 3.87 M/mm3 (3.65-5.03) 09/05/21 05:38 Hgb 12.7 gm/dl (11.8-15.2) 09/05/21 05:38 Hct 37.1 % (35.5-45.6) 09/05/21 05:38 MCV 96 fl (84-94) H 09/05/21 05:38 MCH 33 pg (28-32) H 09/05/21 05:38 MCHC 34 % (32-34) 09/05/21 05:38 RDW 11.8 % (13.2-15.2) L 09/05/21 05:38 Plt Count 265 K/mm3 (140-440) 09/05/21 05:38 Lymph % (Auto) 18.0 % (13.4-35.0) 09/05/21 05:38 [place] % (Auto) 8.0 % (0.0-7.3) H 09/05/21 05:38 Eos % (Auto) 0.6 % (0.0-4.3) 09/05/21 05:38 Baso % (Auto) 1.1 % (0.0-1.8) 09/05/21 05:38 Lymph # (Auto) 1.8 K/mm3 (1.2-5.4) 09/05/21 05:38 [place] # (Auto) 0.8 K/mm3 (0.0-0.8) 09/05/21 05:38 Eos # (Auto) 0.1 K/mm3 (0.0-0.4) 09/05/21 05:38 Baso # (Auto) 0.1 K/mm3 (0.0-0.1) 09/05/21 05:38 Seg Neutrophils % 72.3 % (40.0-70.0) H 09/05/21 05:38 Seg Neutrophils # 7.1 K/mm3 (1.8-7.7) 09/05/21 05:38 Sodium 140 mmol/L (137-145) 09/05/21 05:38 Potassium 3.9 mmol/L (3.6-5.0) 09/05/21 05:38 Chloride 102.5 mmol/L (98-107) 09/05/21 05:38 Carbon Dioxide 28 mmol/L (22-30) 09/05/21 05:38 Anion Gap 13 mmol/L 09/05/21 05:38 BUN 5 mg/dL (9-20) L 09/05/21 05:38 Creatinine 0.6 mg/dL (0.8-1.3) L 09/05/21 05:38 Estimated GFR > 60 ml/min 09/05/21 05:38 BUN/Creatinine Ratio 8 % 09/05/21 05:38 Glucose 153 mg/dL (75-100) H 09/05/21 05:38 POC Glucose 183 mg/dL (70-105) H 09/06/21 05:30 Hemoglobin A1c 6.5 % (4-6) H 09/06/21 07:06 Calcium 8.8 mg/dL (8.4-10.2) 09/05/21 05:38 Total Bilirubin 0.70 mg/dL (0.1-1.2) 09/04/21 15:27 AST 13 units/L (5-40) 09/04/21 15:27 ALT 10 units/L (7-56) 09/04/21 15:27 Alkaline Phosphatase 77 units/L (35-129) 09/04/21 15:27 Total Protein 7.8 g/dL (6.3-8.2) 09/04/21 15:27 Albumin 4.1 g/dL (3.9-5) 09/04/21 15:27 Albumin/Globulin Ratio 1.1 % 09/04/21 15:27 Hernadez/IV: Voiding Method Urinal Active Medications - Current Medications Current Medications: Generic Name Dose Route Start Last Admin Trade Name Freq PRN Reason Stop Dose Admin Acetaminophen 650 mg 09/04/21 18:30 Acetaminophen 325 Mg Tab PO Q4H PRN Pain MILD(1-3)/Fever >100.5/LANIER Albuterol 2.5 mg 09/04/21 18:11 Albuterol 2.5 Mg/3 Ml Nebu IH Q4HRT PRN Shortness Of Breath Atenolol 25 mg 09/06/21 12:00 Atenolol 25 Mg Tab PO DAILY NAZ Atorvastatin Calcium 10 mg 09/06/21 22:00 Atorvastatin 10 Mg Tab PO QHS NAZ Dextrose 50 ml 09/04/21 18:30 Dextrose 50% In Water (25gm) 50 Ml Syringe IV Q30MIN PRN Hypoglycemia Protocol Hydromorphone HCl 0.5 mg 09/04/21 18:30 Hydromorphone 0.5 Mg/0.5 Ml Inj IV Q13H PRN Pain , Severe (7-10) Sodium Chloride 1,000 mls @ 42 mls/hr 09/04/21 19:00 09/05/21 00:57 Nacl 0.9% 1000 Ml IV 42 mls/hr DIRECT NAZ Administration Ampicillin Sodium/Sulbactam Sodium 3 gm in 100 mls @ 200 mls/hr 09/05/21 00:00 09/06/21 05:07 Unasyn/Ns 3 Gm/100 Ml IV 200 mls/hr Q6H NAZ Administration Protocol Heparin Sodium/Sodium Chloride 25,000 unit in 500 mls @ 20.52 mls/hr 09/06/21 11:00 Heparin/ 0.45% Nacl-25,000 Unit/500 Ml IV TITR [facility] Protocol 15 UNITS/KG/HR Insulin Human Lispro 0 unit 09/04/21 22:00 09/06/21 07:30 Insulin Lispro 100 Unit/Ml SUB-Q Not Given ACHS [facility] Protocol Miscellaneous Medication 50,000 unit 09/13/21 10:00 Cholecalciferol (Vitamin D3) [Vitamin D3 50,000unit Cap] PO QWEEK [facility] Miscellaneous Medication 5 mg 09/07/21 10:00 Ramipril [Ramipril] PO QDAY [facility] Ondansetron HCl 4 mg 09/04/21 18:30 Ondansetron 4 Mg/2 Ml Inj IV Q8H PRN Nausea And Vomiting Oxycodone/Acetaminophen 1 tab 09/04/21 18:30 Oxycodone /Acetaminophen 5-325mg Tab PO Q6H PRN Pain, Moderate (4-6) Sodium Chloride 10 ml 09/04/21 22:00 09/05/21 22:06 Sodium Chloride 0.9% 10 Ml Flush Syringe IV 10 ml BID NAZ Administration Sodium Chloride 10 ml 09/04/21 18:30 Sodium Chloride 0.9% 10 Ml Flush Syringe IV PRN PRN LINE FLUSH
[2021-09-06] MEDS ORDERED: HEPARIN/ 0.45% NACL DRIP 25,000 UNIT/500 ML BAG IV SCH (11:00)
--- NOTE | 2021-09-06 11:14 | Progress Note ---
Assessment and Plan Patient underwent angiography today which demonstrated inflow exophytic calcification on his SFA with dominant flow from the profunda distally. The patient will be be brought to the OR tomorrow for common femoral artery and SFA endarterectomy. Given the high degree of stenosis at the origin of the SFA, the patient will be placed on a heparin drip low intensity protocol. Subjective Date of service: 09/06/21 Principal diagnosis: Gangrene of the second toe of the right foot Interval history: Patient with a history of diabetes and gangrene with osteomyelitis to the second toe of his right foot. Patient underwent procedure today. Not complaining of any pain. Objective - Constitutional Vitals: Vital Signs - 12hr 09/05/21 09/06/21 23:20 05:29 Temperature 98.9 F 99.4 F Pulse Rate 68 71 Respiratory 20 20 Rate Blood Pressure 155/59 145/46 O2 Sat by Pulse 95 97 Oximetry General appearance: Present: no acute distress - EENT Eyes: EOM intact ENT: hearing intact - Neck Neck: supple, normal ROM - Respiratory Respiratory effort: normal Extremities: abnormal - Gastrointestinal General gastrointestinal: Present: deferred Rectal Exam: deferred - Genitourinary Male genitourinary: deferred - Psychiatric Psychiatric: appropriate mood/affect, cooperative - Labs CBC & Chem 7: 09/05/21 05:38 09/05/21 05:38 Labs: Abnormal lab results 09/05/21 09/05/21 09/06/21 Range/Units 17:19 21:39 05:30 POC Glucose 171 H 198 H 183 H (70-105) mg/dL Hemoglobin A1c (4-6) % 09/06/21 Range/Units 07:06 POC Glucose (70-105) mg/dL Hemoglobin A1c 6.5 H (4-6) % Medications & Allergies - Medications Allergies/Adverse Reactions: Allergies No Known Allergies Allergy (Verified 09/06/21 08:06) Home Medications: Home Medications Medication Instructions Recorded Confirmed Last Taken Type AtorvaSTATin [Lipitor] 10 mg PO QHS 09/05/21 09/06/21 Unknown History Cholecalciferol (Vitamin D3) 50,000 unit PO QWEEK 09/05/21 09/06/21 Unknown History [Vitamin D3 50,000UNIT CAP] Insulin Lispro Prot/Lispro 0 unit SQ BID 09/05/21 09/06/21 Unknown History [HumaLOG MIX 75/25] atenoloL [Tenormin] 25 mg PO DAILY 09/05/21 09/06/21 Unknown History ramipriL [Ramipril] 5 mg PO QDAY 09/05/21 09/06/21 Unknown History Active Medications: Generic Name Dose Route Start Last Admin Trade Name Freq PRN Reason Stop Dose Admin Acetaminophen 650 mg 09/04/21 18:30 Acetaminophen 325 Mg Tab PO Q4H PRN Pain MILD(1-3)/Fever >100.5/LANIER Albuterol 2.5 mg 09/04/21 18:11 Albuterol 2.5 Mg/3 Ml Nebu IH Q4HRT PRN Shortness Of Breath Atenolol 25 mg 09/06/21 12:00 Atenolol 25 Mg Tab PO DAILY NAZ Atorvastatin Calcium 10 mg 09/06/21 22:00 Atorvastatin 10 Mg Tab PO QHS NAZ Dextrose 50 ml 09/04/21 18:30 Dextrose 50% In Water (25gm) 50 Ml Syringe IV Q30MIN PRN Hypoglycemia Protocol Ergocalciferol 50,000 unit 09/10/21 10:00 Ergocalciferol (Vit D2) 50,000 Unit Cap PO Mo@1000 NAZ Hydromorphone HCl 0.5 mg 09/04/21 18:30 Hydromorphone 0.5 Mg/0.5 Ml Inj IV Q13H PRN Pain , Severe (7-10) Sodium Chloride 1,000 mls @ 42 mls/hr 09/04/21 19:00 09/05/21 00:57 Nacl 0.9% 1000 Ml IV 42 mls/hr DIRECT NAZ Administration Ampicillin Sodium/Sulbactam Sodium 3 gm in 100 mls @ 200 mls/hr 09/05/21 00:00 09/06/21 05:07 Unasyn/Ns 3 Gm/100 Ml IV 200 mls/hr Q6H NAZ Administration Protocol Heparin Sodium/Sodium Chloride 25,000 unit in 500 mls @ 20 mls/hr 09/06/21 11:00 Heparin/ 0.45% Nacl-25,000 Unit/500 Ml IV TITR NAZ Protocol 1,000 UNITS/HR Insulin Human Lispro 0 unit 09/04/21 22:00 09/06/21 07:30 Insulin Lispro 100 Unit/Ml SUB-Q Not Given ACHS NAZ Protocol Lisinopril 10 mg 09/06/21 12:00 Lisinopril 10 Mg Tab PO QDAY [facility] Ondansetron HCl 4 mg 09/04/21 18:30 Ondansetron 4 Mg/2 Ml Inj IV Q8H PRN Nausea And Vomiting Oxycodone/Acetaminophen 1 tab 09/04/21 18:30 Oxycodone /Acetaminophen 5-325mg Tab PO Q6H PRN Pain, Moderate (4-6) Sodium Chloride 10 ml 09/04/21 22:00 09/05/21 22:06 Sodium Chloride 0.9% 10 Ml Flush Syringe IV 10 ml BID [facility] Administration Sodium Chloride 10 ml 09/04/21 18:30 Sodium Chloride 0.9% 10 Ml Flush Syringe IV PRN PRN LINE FLUSH
[2021-09-06] MEDS: LISINOPRIL 10 MG TAB PO SCH (12:40)
[2021-09-06 12:41] LABS: Hematocrit 37.2 % (35.5-45.6); Hemoglobin 12.6 gm/dl (11.8-15.2)
[2021-09-06] MEDS: atenoloL 25 MG TAB PO SCH (12:41)
[2021-09-06 13:03] LABS: INR 0.87 (0.87-1.13)
--- NOTE | 2021-09-06 13:41 | Progress Note ---
Assessment and Plan - Patient Problems (1) Gangrene of toe of right foot Current Visit: Yes Status: Acute Plan to address problem: 1) Right SFA endarterectomy tomorrow 2) I will be out of town Friday and Friday. 3) Right 2nd toe amputation could be scheduled for 09/10/21 or if needed, pt can be discharged and amputation can be scheduled as an outpt. If discharged, have pt f/u in my [facility] on 09/12/21. Subjective Date of service: 09/06/21 Patient Reports: Positive: no new complaints (Dr. Goetz's note read.) Objective Vital Signs - 12hr 09/06/21 09/06/21 09/06/21 05:29 10:00 11:55 Temperature 99.4 F 99.5 F Pulse Rate 71 75 Respiratory 20 22 Rate Blood Pressure 145/46 133/44 O2 Sat by Pulse 97 97 98 Oximetry - Musculoskeletal other (Dry gangrene of right 2nd toe noted.) - Labs 09/06/21 11:16 09/05/21 05:38 Diabetes panel 09/06/21 Range/Units 07:06 Hemoglobin A1c 6.5 H (4-6) %
--- NOTE | 2021-09-06 13:59 | Anesthesia Consultation ---
<REENA ANDREWS - Last Filed: 09/06/21 13:56> Anesthesia Consult and Med Hx Date of service: 09/07/21 - Airway Anesthetic Teeth Evaluation: Partials ROM Head & Neck: Adequate Mental/Hyoid Distance: Adequate Mallampati Class: Class I Intubation Access Assessment: Good - Cardiac Exam Cardiac Exam: RRR - Pre-Operative Health Status ASA Pre-Surgery Classification: ASA2 Proposed Anesthetic Plan: General, MAC - Pulmonary Hx Smoking: No Hx Asthma: No Hx Pneumonia: No Hx Sleep Apnea: No - Cardiovascular System Hx Hypertension: Yes - Central Nervous System Hx Neuromuscular Disorder: No Hx Seizures: No Hx Psychiatric Problems: No - Gastrointestinal Hx Gastroesophageal Reflux Disease: No - Endocrine Hx Insulin Dependent Diabetes: Yes - Other Systems Hx Alcohol Use: No Hx Cancer: No <YOSI HALEY - Last Filed: 09/07/21 09:23> Anesthesia Consult and Med Hx - Airway Anesthetic Teeth Evaluation: Partials ROM Head & Neck: Adequate Mental/Hyoid Distance: Adequate Mallampati Class: Class I Intubation Access Assessment: Good - Pre-Operative Health Status ASA Pre-Surgery Classification: ASA3 Proposed Anesthetic Plan: General - Cardiovascular System Hx Hypertension: Yes Hx Heart Attack/AMI: No Hx Peripheral Vascular Disease: Yes - Central Nervous System CVA: No - Endocrine Hx Renal Disease: No Hx Liver Disease: No Hx Insulin Dependent Diabetes: Yes - Additional Comments Anesthesia Medical History Comments: Examined immediately prior to procedure. No clinical change overnight. No hx anesthetic complications.
[2021-09-06] MEDS ORDERED: VANCOMYCIN 1,000 MG in SODIUM CHLORIDE 0.9% 500 ML 500 ML IV ONE (14:05)
--- NOTE | 2021-09-06 14:06 | Consultation ---
History of Present Illness - Reason for Consult Consult date: 09/06/21 gangrene of toe Requesting physician: MARIBEL BRADLEY - History of Present Illness The patient is a 66-year-old male with diabetes, used to smoke when he was in his 20s was admitted to the hospital with soreness in his right foot and darkening of his right second toe concerning for gangrene. X-ray showed findings concerning for osteomyelitis. DVT scan was negative. 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 Patient has also been seen by Dr. Sparks and has been recommended amputation of the toe. Patient otherwise denies any complaints at this time. He says the toe darkening has been gradually going on for the last 1 month. Review of Systems: General: no fevers,chills or rigors HEENT: no new visual disturbance Respiratory: No cough, sputum, hemoptysis or shortness of breath Cardiovascular: No chest pain, syncope Gastrointestinal: No nausea, vomiting or diarrhea Genitourinary: No dysuria or hematuria Musculoskeletal: No new or worsening neck pain or back pain Neurologic: No headaches, seizures Hematologic: No easy bruising or bleeding Endocrine: No night sweats or acute weight loss Skin: negative for rash, jaundice Psychiatric: No suicidal or homicidal ideation Past History Past Medical History: diabetes Past Surgical History: No surgical history Social history: single. denies: smoking, alcohol abuse, prescription drug abuse Family history: diabetes, hypertension Medications and Allergies Allergies Allergy/AdvReac Type Severity Reaction Status Date / Time No Known Allergies Allergy Verified 09/06/21 08:06 Home Medications Medication Instructions Recorded Confirmed Last Taken Type AtorvaSTATin [Lipitor] 10 mg PO QHS 09/05/21 09/06/21 Unknown History Cholecalciferol (Vitamin D3) 50,000 unit PO QWEEK 09/05/21 09/06/21 Unknown His tory [Vitamin D3 50,000UNIT CAP] Insulin Lispro Prot/Lispro 0 unit SQ BID 09/05/21 09/06/21 Unknown History [HumaLOG MIX 75/25] atenoloL [Tenormin] 25 mg PO DAILY 09/05/21 09/06/21 Unknown History ramipriL [Ramipril] 5 mg PO QDAY 09/05/21 09/06/21 Unknown History Active Meds: Active Medications Acetaminophen (Acetaminophen 325 Mg Tab) 650 mg PO Q4H PRN PRN Reason: Pain MILD(1-3)/Fever >100.5/LANIER Albuterol (Albuterol 2.5 Mg/3 Ml Nebu) 2.5 mg IH Q4HRT PRN PRN Reason: Shortness Of Breath Atenolol (Atenolol 25 Mg Tab) 25 mg PO DAILY NAZ Last Admin: 09/06/21 12:41 Dose: 25 mg Atorvastatin Calcium (Atorvastatin 10 Mg Tab) 10 mg PO QHS NAZ Dextrose (Dextrose 50% In Water (25gm) 50 Ml Syringe) 50 ml IV Q30MIN PRN; Protocol PRN Reason: Hypoglycemia Ergocalciferol (Ergocalciferol (Vit D2) 50,000 Unit Cap) 50,000 unit PO Mo@1000 NAZ Hydromorphone HCl (Hydromorphone 0.5 Mg/0.5 Ml Inj) 0.5 mg IV Q13H PRN PRN Reason: Pain , Severe (7-10) Last Admin: 09/06/21 11:42 Dose: 0.5 mg Sodium Chloride (Nacl 0.9% 1000 Ml) 1,000 mls @ 42 mls/hr IV DIRECT NAZ Last Admin: 09/05/21 00:57 Dose: 42 mls/hr Heparin Sodium/Sodium Chloride (Heparin/ 0.45% Nacl-25,000 Unit/500 Ml) 25,000 unit in 500 mls @ 20 mls/hr IV TITR NAZ; Protocol Last Admin: 09/06/21 13:54 Dose: 1,000 units/hr, 20 mls/hr Ceftriaxone Sodium (Rocephin/Ns 1 Gm/50 Ml) 1 gm in 50 mls @ 100 mls/hr IV Q24HR NAZ; Protocol Vancomycin HCl 1,000 mg/ (Sodium Chloride) 520 mls @ 333 mls/hr IV ONCE ONE; Protocol Stop: 09/06/21 15:35 Insulin Human Isoph/Insulin Regular (Insulin Nph/Regular 70/30 Inj) 6 unit SUB- Q BIDDIAB NAZ Insulin Human Lispro (Insulin Lispro 100 Unit/Ml) 0 unit SUB-Q ACHS NAZ; Protocol Last Admin: 09/06/21 11:30 Dose: Not Given Lisinopril (Lisinopril 10 Mg Tab) 10 mg PO QDAY [facility] Last Admin: 09/06/21 12:40 Dose: 10 mg Ondansetron HCl (Ondansetron 4 Mg/2 Ml Inj) 4 mg IV Q8H PRN PRN Reason: Nausea And Vomiting Oxycodone/Acetaminophen (Oxycodone /Acetaminophen 5-325mg Tab) 1 tab PO Q6H PRN PRN Reason: Pain, Moderate (4-6) Sodium Chloride (Sodium Chloride 0.9% 10 Ml Flush Syringe) 10 ml IV BID [facility] Last Admin: 09/06/21 10:00 Dose: 10 ml Sodium Chloride (Sodium Chloride 0.9% 10 Ml Flush Syringe) 10 ml IV PRN PRN PRN Reason: LINE FLUSH Physical Examination - Physical Exam Narrative exam: Physical Exam: Constitutional: Alert, cooperative. No acute distress Head, Ears, Nose: Normocephalic, atraumatic. External ears, nose normal Eyes: Conjunctivae/corneas clear. No icterus. No ptosis. Neck: Supple, no meningeal signs Oral: Mask Cardiovascular: S1, S2 + Respiratory: Good air entry, clear to auscultation bilaterally GI: Soft, non-tender; bowel sounds normal. No peritoneal signs Musculoskeletal: Right leg distally with skin darkening, second toe with gangrenous changes. Skin: No rash or abscess Hem/Lymphatic: No palpable cervical or supraclavicular nodes. No lymphangitis Psych: Mood ok. Affect normal Neurological: Awake, alert, oriented. No gross abnormality - Constitutional Vitals: Vital Signs Temp Pulse Resp BP Pulse Ox 99.5 F 75 22 133/44 98 09/06/21 11:55 09/06/21 11:55 09/06/21 11:55 09/06/21 11:55 09/06/21 11:55 Temperature -Last 24 Hours Temperature 99.5 F Temperature 99.4 F Temperature 98.9 F Temperature 99.2 F Results - Labs CBC & Chem 7: 09/06/21 11:16 09/05/21 05:38 Labs: Abnormal lab results 09/05/21 09/05/21 09/06/21 Range/Units 17:19 21:39 05:30 POC Glucose 171 H 198 H 183 H (70-105) mg/dL Hemoglobin A1c (4-6) % 09/06/21 09/06/21 Range/Units 07:06 11:56 POC Glucose 154 H (70-105) mg/dL Hemoglobin A1c 6.5 H (4-6) % Assessment and Plan Cultures: None A/P: 66-year-old male with diabetes, used to smoke when he was in his 20s was admitted to the hospital with soreness in his right foot and darkening of his right second toe concerning for gangrene: #Right second toe gangrene and associated osteomyelitis, peripheral vascular disease: Osteomyelitis seems more ischemic. Has significant peripheral vascular disease and is planned for right FIRE ALARM INSTALLER and SFA endarterectomy in the operating room. Patient has also been seen by Dr. Sparks and has been recommended amputation of the toe. #Peripheral vascular disease #Diabetes mellitus type 2 Recs: -Empiric ceftriaxone, vancomycin, target vancomycin trough between 10 to 15 mc g/mL -Follow-up surgical revascularization -Awaiting to amputation, stop antibiotics 48 hours after procedure Ernestine Nair MD, [facility] ([facility]) O: [phone] F: [phone] C: [phone]
[2021-09-06] MEDS: cefTRIAXone/NS 1 GM/50 ML 1 GM/50 ML BAG IV SCH (14:59)
[2021-09-06] MEDS ORDERED: VANCOMYCIN/NS 1 GM/250 ML 1 GM/250 ML BAG IV ONE (15:00)
[2021-09-06] MEDS ORDERED: VANCOMYCIN PHARMACY TO DOSE IV SCH (15:00)
[2021-09-06 15:05] LABS: Partial Thromboplastin Time 34.8 Sec. (24.2-36.6)
[2021-09-06] MEDS: INSULIN NPH/REGULAR 70/30 INJ SUB-Q SCH (17:33)
[2021-09-07] MEDS ORDERED: MIDAZOLAM 2 MG/2 ML INJ IV NR (06:00)
[2021-09-07] MEDS: VANCOMYCIN/NS 1 GM/250 ML 1 GM/250 ML BAG IV SCH ×2 (06:44→17:08)
[2021-09-07] MEDS: INSULIN LISPRO 100 UNIT/ML SUB-Q SCH ×4 (07:11→22:20)
[2021-09-07 07:19] LABS: Basophils % (Auto) 0.3 % (0.0-1.8); Eosinophils # (Auto) 0.1 K/mm3 (0.0-0.4); Eosinophils % (Auto) 1.1 % (0.0-4.3); Hematocrit 39.9 % (35.5-45.6); Hemoglobin 13.3 gm/dl (11.8-15.2); Lymphocytes # (Auto) 1.8 K/mm3 (1.2-5.4); Lymphocytes % (Auto) 16.5 % (13.4-35.0); Mean Corpuscular HGB Conc 33 % (32-34); Mean Corpuscular Volume 96 fl (84-94); Monocytes # (Auto) 0.8 K/mm3 (0.0-0.8); Monocytes % (Auto) 7.3 % (0.0-7.3); Platelet Count 338 K/mm3 (140-440); Red Blood Count 4.14 M/mm3 (3.65-5.03)
[2021-09-07 07:50] LABS: Blood Urea Nitrogen 5 mg/dL (9-20); Calcium 9.2 mg/dL (8.4-10.2); Hemolysis Index 2
[2021-09-07 08:03] LABS: BUN/Creatinine Ratio 8
[2021-09-07] MEDS: INSULIN NPH/REGULAR 70/30 INJ SUB-Q SCH ×2 (08:03→19:55)
--- NOTE | 2021-09-07 08:58 | Progress Note ---
Assessment and Plan Cultures: None A/P: 66-year-old male with diabetes, used to smoke when he was in his 20s was adm itted to the hospital with soreness in his right foot and darkening of his right second toe concerning for gangrene: #Right second toe gangrene and associated osteomyelitis, peripheral vascular disease: Osteomyelitis seems more ischemic. Has significant peripheral vascular disease and is planned for right [employer] and SFA endarterectomy in the operating room. Patient has also been seen by Dr. Sparks and has been recommended amputation of the toe. #Peripheral vascular disease #Diabetes mellitus type 2 Recs: -Empiric ceftriaxone, vancomycin, target vancomycin trough between 10 to 15 mcg/mL -s/p surgical revascularization -Awaiting to amputation, stop antibiotics 48 hours after procedure Yuly Payan MD [facility] ([facility]) O: [phone] F: [phone] Subjective Date of service: 09/07/21 Principal diagnosis: Gangrene of the second toe of the right foot Interval history: Afebrile, white count 11.1. No acute issues. Objective - Exam Narrative Exam: Physical Exam: Constitutional: Alert, cooperative. No acute distress Head, Ears, Nose: Normocephalic, atraumatic. External ears, nose normal Eyes: Conjunctivae/corneas clear. No icterus. No ptosis. Neck: Supple, no meningeal signs Oral: Mask Cardiovascular: S1, S2 + Respiratory: Good air entry, clear to auscultation bilaterally GI: Soft, non-tender; bowel sounds normal. No peritoneal signs Musculoskeletal: Right leg distally with skin darkening, second toe with gangrenous changes. Skin: No rash or abscess Hem/Lymphatic: No palpable cervical or supraclavicular nodes. Psych: Mood ok. Affect normal Neurological: Awake, alert, oriented. No gross abnormality - Constitutional Vitals: Vital Signs Temp Pulse Resp BP Pulse Ox 99.4 F 71 18 115/45 98 09/07/21 05:39 09/07/21 05:39 09/07/21 05:39 09/07/21 05:39 09/07/21 07:16 Temperature -Last 24 Hours Temperature 99.4 F Temperature 99.5 F Temperature 99.3 F Temperature 99.5 F - Labs CBC & Chem 7: 09/07/21 06:35 09/07/21 06:36 Labs: Abnormal lab results 09/06/21 09/06/21 09/06/21 Range/Units 11:56 17:11 19:51 WBC (4.5-11.0) K/mm3 MCV (84-94) fl RDW (13.2-15.2) % Seg Neutrophils % (40.0-70.0) % Seg Neutrophils # (1.8-7.7) K/mm3 Heparin Anti-Xa Level 0.19 L (0.3-0.7) U.I./ml BUN (9-20) mg/dL Creatinine (0.8-1.3) mg/dL Glucose (75-100) mg/dL POC Glucose 154 H 166 H (70-105) mg/dL 09/06/21 09/07/21 09/07/21 Range/Units 21:57 06:35 06:36 WBC 11.1 H (4.5-11.0) K/mm3 MCV 96 H (84-94) fl RDW 12.0 L (13.2-15.2) % Seg Neutrophils % 74.8 H (40.0-70.0) % Seg Neutrophils # 8.3 H (1.8-7.7) K/mm3 Heparin Anti-Xa Level (0.3-0.7) U.I./ml BUN 5 L (9-20) mg/dL Creatinine 0.6 L (0.8-1.3) mg/dL Glucose 155 H (75-100) mg/dL POC Glucose 126 H (70-105) mg/dL 09/07/21 Range/Units 07:40 WBC (4.5-11.0) K/mm3 MCV (84-94) fl RDW (13.2-15.2) % Seg Neutrophils % (40.0-70.0) % Seg Neutrophils # (1.8-7.7) K/mm3 Heparin Anti-Xa Level (0.3-0.7) U.I./ml BUN (9-20) mg/dL Creatinine (0.8-1.3) mg/dL Glucose (75-100) mg/dL POC Glucose 151 H (70-105) mg/dL
[2021-09-07] MEDS ORDERED: HYDROmorphone 0.5 MG/0.5 ML INJ IV PRN (09:24)
--- NOTE | 2021-09-07 09:24 | Anesthesia Day of Surgery ---
Anesthesia Day of Surgery - Day of Surgery Patient Examined: Yes Patient H&P Reviewed: Yes Patient is NPO: Yes
[2021-09-07] MEDS ORDERED: ceFAZolin/Water 2 GM/20 ML 2 GM/20 ML SYRINGE IV NR (10:00)
[2021-09-07] MEDS ORDERED: RAMIPRIL 5 MG PO SCH (10:00)
[2021-09-07] MEDS: LACTATED RINGERS 1,000 ML IV SCH ×2 (10:10→17:03)
--- NOTE | 2021-09-07 10:15 | Progress Note ---
Assessment and Plan Assessment and plan: The patient is a 66-year-old male with a history of diabetes mellitus type II who states that approximately 2 weeks ago he hit his second toe resulting in a wound. He initially presented to the emergency department on 08/29/2021 however he left AMA. W/u included xray of the foot which revealed osteomyelitis of the right 2nd toe. He represented on 09/05/2021 with complaints of the wound progressively worsening with pain and turning black. He denied any fever or chills. He denied any history of previous claudication. He stated he smoked in his 20s however he does not currently smoke. Gangrene of right second toe Osteomyelitis of right second toe Right foot cellulitis Diabetes mellitus type 2 09/06/2021. Patient for right lower extremity angiography per vascular surgery. Right lower extremity angiography demonstrating 1cm marble of exophytic calcific atherosclerotic disease just distal to the origin of the SFA causing significantly decreased flow distally. This is not ideally amenable to percutaneous revascularization and the patient will be scheduled for right common femoral artery and SFA endarterectomy tomorrow scheduling in the OR permitting. Continue tight glycemic control. Follow-up hemoglobin A1c. Continue local wound care. Surgery following. ID consulted. Continue IV antibiotics of Unasyn for now. 09/07/2021. Patient for endarterectomy today per vascular surgery. Continue tight glycemic control. Follow-up hemoglobin A1c. Continue local wound care. Surgery following. ID recommends empiric ceftriaxone and vancomycin. Patient for amputation likely next week. We will stop antibiotics 48 hours after procedure. History Interval history: No new issues overnight Hospitalist Physical - Constitutional Vitals: Temp Pulse Resp BP Pulse Ox 99.4 F 71 18 115/45 98 09/07/21 05:39 09/07/21 05:39 09/07/21 05:39 09/07/21 05:39 09/07/21 07:16 General appearance: Present: no acute distress - EENT Eyes: Present: PERRL, EOM intact ENT: hearing intact, clear oral mucosa, dentition normal - Neck Neck: Present: supple, normal ROM - Respiratory Respiratory effort: normal Respiratory: bilateral: CTA - Cardiovascular Rhythm: regular Heart Sounds: Present: S1 & S2. Absent: gallop, rub - Extremities Extremities: no ischemia, No edema, Full ROM - Abdominal General gastrointestinal: soft, non-tender, non-distended, normal bowel sounds - Integumentary Integumentary: Present: clear, warm, dry - Neurologic Neurologic: CNII-XII intact, moves all extremities Results - Labs CBC & Chem 7: 09/07/21 06:35 09/07/21 06:36 Labs: Laboratory Last Values WBC 11.1 K/mm3 (4.5-11.0) H 09/07/21 06:35 RBC 4.14 M/mm3 (3.65-5.03) 09/07/21 06:35 Hgb 13.3 gm/dl (11.8-15.2) 09/07/21 06:35 Hct 39.9 % (35.5-45.6) 09/07/21 06:35 MCV 96 fl (84-94) H 09/07/21 06:35 MCH 32 pg (28-32) 09/07/21 06:35 MCHC 33 % (32-34) 09/07/21 06:35 RDW 12.0 % (13.2-15.2) L 09/07/21 06:35 Plt Count 338 K/mm3 (140-440) 09/07/21 06:35 Lymph % (Auto) 16.5 % (13.4-35.0) 09/07/21 06:35 [place] % (Auto) 7.3 % (0.0-7.3) 09/07/21 06:35 Eos % (Auto) 1.1 % (0.0-4.3) 09/07/21 06:35 Baso % (Auto) 0.3 % (0.0-1.8) 09/07/21 06:35 Lymph # (Auto) 1.8 K/mm3 (1.2-5.4) 09/07/21 06:35 [place] # (Auto) 0.8 K/mm3 (0.0-0.8) 09/07/21 06:35 Eos # (Auto) 0.1 K/mm3 (0.0-0.4) 09/07/21 06:35 Baso # (Auto) 0.0 K/mm3 (0.0-0.1) 09/07/21 06:35 Seg Neutrophils % 74.8 % (40.0-70.0) H 09/07/21 06:35 Seg Neutrophils # 8.3 K/mm3 (1.8-7.7) H 09/07/21 06:35 PT 12.8 Sec. (12.2-14.9) 09/06/21 11:16 INR 0.87 (0.87-1.13) 09/06/21 11:16 APTT 34.8 Sec. (24.2-36.6) 09/06/21 11:16 Heparin Anti-Xa Level 0.19 U.I./ml (0.3-0.7) L 09/06/21 19:51 Sodium 138 mmol/L (137-145) 09/07/21 06:36 Potassium 4.0 mmol/L (3.6-5.0) 09/07/21 06:36 Chloride 99.2 mmol/L (98-107) 09/07/21 06:36 Carbon Dioxide 29 mmol/L (22-30) 09/07/21 06:36 Anion Gap 14 mmol/L 09/07/21 06:36 BUN 5 mg/dL (9-20) L 09/07/21 06:36 Creatinine 0.6 mg/dL (0.8-1.3) L 09/07/21 06:36 Estimated GFR > 60 ml/min 09/07/21 06:36 BUN/Creatinine Ratio 8 % 09/07/21 06:36 Glucose 155 mg/dL (75-100) H 09/07/21 06:36 POC Glucose 151 mg/dL (70-105) H 09/07/21 07:40 Hemoglobin A1c 6.5 % (4-6) H 09/06/21 07:06 Calcium 9.2 mg/dL (8.4-10.2) 09/07/21 06:36 Total Bilirubin 0.70 mg/dL (0.1-1.2) 09/04/21 15:27 AST 13 units/L (5-40) 09/04/21 15:27 ALT 10 units/L (7-56) 09/04/21 15:27 Alkaline Phosphatase 77 units/L (35-129) 09/04/21 15:27 Total Protein 7.8 g/dL (6.3-8.2) 09/04/21 15:27 Albumin 4.1 g/dL (3.9-5) 09/04/21 15:27 Albumin/Globulin Ratio 1.1 % 09/04/21 15:27 Blood Type A POSITIVE 09/07/21 04:00 Antibody Screen Negative 09/07/21 04:00 Hernadez/IV: Voiding Method Toilet Active Medications - Current Medications Current Medications: Generic Name Dose Route Start Last Admin Trade Name Freq PRN Reason Stop Dose Admin Acetaminophen 650 mg 09/04/21 18:30 Acetaminophen 325 Mg Tab PO Q4H PRN Pain MILD(1-3)/Fever >100.5/LANIER Albuterol 2.5 mg 09/04/21 18:11 Albuterol 2.5 Mg/3 Ml Nebu IH Q4HRT PRN Shortness Of Breath Atenolol 25 mg 09/06/21 12:00 09/06/21 12:41 Atenolol 25 Mg Tab PO 25 mg DAILY NAZ Administration Atorvastatin Calcium 10 mg 09/06/21 22:00 09/06/21 21:14 Atorvastatin 10 Mg Tab PO 10 mg QHS NAZ Administration Dextrose 50 ml 09/04/21 18:30 Dextrose 50% In Water (25gm) 50 Ml Syringe IV Q30MIN PRN Hypoglycemia Protocol Ergocalciferol 50,000 unit 09/10/21 10:00 Ergocalciferol (Vit D2) 50,000 Unit Cap PO Mo@1000 NAZ Hydromorphone HCl 0.5 mg 09/04/21 18:30 09/06/21 11:42 Hydromorphone 0.5 Mg/0.5 Ml Inj IV 0.5 mg Q13H PRN Administration Pain , Severe (7-10) Hydromorphone HCl 0.5 mg 09/07/21 09:24 Hydromorphone 0.5 Mg/0.5 Ml Inj IV 09/07/21 19:00 Q10MIN PRN Pain , Severe (7-10) Sodium Chloride 1,000 mls @ 42 mls/hr 09/04/21 19:00 09/05/21 00:57 Nacl 0.9% 1000 Ml IV 42 mls/hr DIRECT NAZ Administration Heparin Sodium/Sodium Chloride 25,000 unit in 500 mls @ 20 mls/hr 09/06/21 11:00 09/06/21 13:54 Heparin/ 0.45% Nacl-25,000 Unit/500 Ml IV 1,000 units/hr TITR NAZ 20 mls/hr Administration Protocol 1,000 UNITS/HR Ceftriaxone Sodium 1 gm in 50 mls @ 100 mls/hr 09/06/21 15:00 09/06/21 14:59 Rocephin/Ns 1 Gm/50 Ml IV 100 mls/hr Q24HR NAZ Administration Protocol Vancomycin HCl 1 gm in 250 mls @ 167.007 mls/hr 09/07/21 06:00 09/07/21 06:44 Vancomycin/Ns 1 Gm/250 Ml IV 167.007 mls/hr Q12H NAZ Administration Cefazolin Sodium 2 gm in 20 mls @ 80 mls/hr 09/07/21 10:00 Ancef/Sterile Water 2 Gm/20 Ml IV 09/07/21 10:14 PREOP NR Protocol Lactated Ringer's 1,000 mls @ 100 mls/hr 09/07/21 09:30 Lactated Ringers IV 09/08/21 09:29 DIRECT NAZ Insulin Human Isoph/Insulin Regular 6 unit 09/06/21 17:00 09/07/21 08:03 Insulin Nph/Regular 70/30 Inj SUB-Q Not Given BIDDIAB [facility] Insulin Human Lispro 0 unit 09/04/21 22:00 09/07/21 07:11 Insulin Lispro 100 Unit/Ml SUB-Q Not Given ACHS [facility] Protocol Lisinopril 10 mg 09/06/21 12:00 09/06/21 12:40 Lisinopril 10 Mg Tab PO 10 mg QDAY NAZ Administration Midazolam HCl 2 mg 09/07/21 06:00 Midazolam 2 Mg/2 Ml Inj IV 09/07/21 23:00 PREOP NR Ondansetron HCl 4 mg 09/04/21 18:30 Ondansetron 4 Mg/2 Ml Inj IV Q8H PRN Nausea And Vomiting Oxycodone/Acetaminophen 1 tab 09/04/21 18:30 Oxycodone /Acetaminophen 5-325mg Tab PO Q6H PRN Pain, Moderate (4-6) Sodium Chloride 10 ml 09/04/21 22:00 09/06/21 21:14 Sodium Chloride 0.9% 10 Ml Flush Syringe IV 10 ml BID NAZ Administration Sodium Chloride 10 ml 09/04/21 18:30 Sodium Chloride 0.9% 10 Ml Flush Syringe IV PRN PRN LINE FLUSH
[2021-09-07] MEDS ORDERED: HEPARIN 10,000 UNITS/10 ML VIAL ONE (10:56)
[2021-09-07] MEDS ORDERED: SODIUM CHLORIDE 0.9% 500 ML 500 ML ONE (10:56)
[2021-09-07] MEDS ORDERED: BUPIVACAINE/PF (0.5%) 5 MG/1 ML 30 ML VIAL INFILTRATI ONE ×2 (10:56→13:16)
[2021-09-07] MEDS ORDERED: rifAMPin 600 MG VIAL ONE (10:56)
[2021-09-07] MEDS ORDERED: fentaNYL 100 MCG/2 ML INJ ONE (11:06)
[2021-09-07] MEDS ORDERED: LIDOCAINE MPF (2%) 20 MG/1 ML VIAL 5 ML ONE (11:06)
[2021-09-07] MEDS ORDERED: ONDANSETRON 4 MG/2 ML INJ ONE (11:06)
[2021-09-07] MEDS ORDERED: propofoL 200 MG/20 ML VIAL IV ONE (11:07)
[2021-09-07] MEDS ORDERED: ePHEDrine SULFATE 50 MG/1 ML INJ ONE (11:49)
[2021-09-07] MEDS ORDERED: rifAMPin 600 MG in SODIUM CHLORIDE 0.9% 50 ML IR ONE (12:10)
[2021-09-07] MEDS ORDERED: SODIUM CHLORIDE 0.9% IRR 1,000 ML BOTTLE IR ONE (12:10)
[2021-09-07] MEDS ORDERED: HEPARIN 2,000 UNIT in SODIUM CHLORIDE 0.9% 500 ML 500 ML IR ONE (12:10)
[2021-09-07] MEDS ORDERED: SODIUM CHLORIDE 0.9% 1000 ML 1,000 ML ONE (13:40)
[2021-09-07] MEDS ORDERED: MORPHINE 4 MG/1 ML INJ IV PRN (14:28)
[2021-09-07] MEDS ORDERED: MORPHINE 2 MG/1 ML INJ IV PRN (14:28)
[2021-09-07] MEDS ORDERED: HYDROcodone/ACETAMINOPHEN 5-325 MG TAB PO PRN (14:28)
[2021-09-07] MEDS ORDERED: NALOXONE 0.4 MG/1 ML INJ IV PRN (14:28)
[2021-09-07] MEDS ORDERED: CLOPIDOGREL 300 MG TAB PO ONE ×2 (14:34→16:22)
--- NOTE | 2021-09-07 15:38 | Post Anesthesia Evaluation ---
- Post Anesthesia Evaluation Patient Participated: Yes Airway Patent: Yes Stable Respiratory Function: Yes Nausea/Vomiting: No Temp > 96.8F: Yes Pain Manageable: Yes Adequeate Hydration: Yes Anesthesia Complications: No
[2021-09-07] MEDS: LISINOPRIL 10 MG TAB PO SCH (16:37)
[2021-09-07] MEDS: atenoloL 25 MG TAB PO SCH (16:37)
--- NOTE | 2021-09-07 16:41 | Operative Report ---
Operative Report Operative Report: Date of Procedure: 09/07/2021 Pre-operative Diagnosis: Peripheral Vascular Disease with Right Lower Extremity Gangrene Post-operative Diagnosis: Same Procedure(s): 1. Right Femoral Endarterectomy with Bovine Patch Angioplasty Surgeon: Zaid Cohn M.D. Barrelhead Inspector: Snow Anesthesia: LMA EBL: 150 mL Counts: Correct Complications: None Condition: Stable Findings: Heavily calcified plaque with near total occlusion of the distal distal femoral artery. Specimen: Right femoral artery plaque was sent to pathology. Indication: The patient is a 66-year-old male with a history of diabetes and peripheral vascular disease who presented with gangrene of his right second toe. He had a diagnostic angiogram that revealed occlusive disease in his right common femoral artery. He is in need of a endarterectomy with patch angioplasty. He was given the risk, benefits, and alternative procedures and consented to the procedure. Description of Procedure: The patient was brought to the operating room and laid in supine position. After a timeout was performed he was adequate sedated and his right groin was prepped and draped in normal sterile fashion. A longitudinal incision was created in the right groin and carried down to the anterior abdominal wall using a combination of cautery and sharp dissection. The dissection was then carried down to the common femoral artery and then under the inguinal ligament until the distal external iliac artery was identified and dissected circumferentially and controlled with a vessel loop. I dissected along the medial aspect of the artery until I was able to identify the bifurcation of the profunda artery and SFA. I dissected the SFA circumferentially controlled with a vessel loop. I then dissected the 2 branches of the profunda artery, circumferentially, and controlled them with Vesseloops. Of note the patient had an abnormally long common femoral artery which was heavily calcified throughout the entire artery. I systemically heparinized the patient with 5000 units of heparin IV and after this is circulated for 3 minutes I clamped all vessels and then created an arteriotomy extending from the proximal SFA to the proximal common femoral artery using a combination of an 11 blade and Celestin scissors. Of note the distal common femoral artery had near total occlusion making it quite difficult to identify lumen. After creating the arteriotomy I was able to separate the plaque for the arterial wall using a freer elevator. I performed an eversion endarterectomy in each branch of the profunda artery and remove the clamps to ensure that plaque had been adequately removed and then flushed the arteries with heparinized saline. I then pulled up on the vessel loop in the external iliac artery and was able to pull a large chunk of heavily calcified plaque from the distal external iliac artery using a Pallavi clamp. I removed the clamp from the SFA and there was no backbleeding however I was able to used a [place] to dissect approximately 3 to 4 cm into the SFA and removed a large heavily calcified chunk of plaque at that point there was a significant amount of backbleeding. I flushed the SFA with heparinized saline and then reclamped the vessel. I then closed the arteriotomy using a bovine pericardial patch and two 5-0 Prolene's in running fashion. Prior to completing the closure of the arteriotomy I flashed all vessels and reclamped them and then flushed the arteriotomy with heparinized saline to clear any potential emboli. I completed the closure of the arteriotomy and released all clamps allow flow into the lower extremity. Hemostasis on the patch was achieved with a combination of 6-0 Prolene in interrupted fashion, quick clot, and Surgicel. Once hemostasis was achieved I anesthetized the wound with 0.5% Marcaine and closed in multiple layers using a 3-0 Vicryl running fashion to reapproximate the fascia, 3-0 Vicryl in running fashion to close the space, 3-0 Vicryl running fashion in the deep dermal layer, and a 4-0 Monocryl in running fashion the subcuticular layer. I then dressed the wound with Dermabond. The patient tolerated the procedure well. All sponge, needle, and instrument counts were correct. The patient was taken to the recovery area in stable condition.
[2021-09-07] MEDS: cefTRIAXone/NS 1 GM/50 ML 1 GM/50 ML BAG IV SCH (16:59)
[2021-09-08] MEDS: LACTATED RINGERS 1,000 ML IV SCH (02:24)
[2021-09-08 05:30] LABS: Blood Urea Nitrogen 4 mg/dL (9-20); Calcium 8.7 mg/dL (8.4-10.2); Hemolysis Index 6
[2021-09-08] MEDS: VANCOMYCIN/NS 1 GM/250 ML 1 GM/250 ML BAG IV SCH ×2 (05:36→18:36)
[2021-09-08 05:53] LABS: BUN/Creatinine Ratio 6
--- NOTE | 2021-09-08 07:30 | Progress Note ---
Assessment and Plan Assessment and plan: The patient is a 66-year-old male with a history of diabetes mellitus type II who states that approximately 2 weeks ago he hit his second toe resulting in a wound. He initially presented to the emergency department on 08/29/2021 however he left AMA. W/u included xray of the foot which revealed osteomyelitis of the right 2nd toe. He represented on 09/05/2021 with complaints of the wound progressively worsening with pain and turning black. He denied any fever or chills. He denied any history of previous claudication. He stated he smoked in his 20s however he does not currently smoke. Gangrene of right second toe Osteomyelitis of right second toe Right foot cellulitis Diabetes mellitus type 2 09/06/2021. Patient for right lower extremity angiography per vascular surgery. Right lower extremity angiography demonstrating 1cm marble of exophytic calcific atherosclerotic disease just distal to the origin of the SFA causing significantly decreased flow distally. This is not ideally amenable to percutaneous revascularization and the patient will be scheduled for right common femoral artery and SFA endarterectomy tomorrow scheduling in the OR permitting. Continue tight glycemic control. Follow-up hemoglobin A1c. Continue local wound care. Surgery following. ID consulted. Continue IV antibiotics of Unasyn for now. 09/07/2021. Patient for endarterectomy today per vascular surgery. Continue tight glycemic control. Follow-up hemoglobin A1c. Continue local wound care. Surgery following. ID recommends empiric ceftriaxone and vancomycin. Patient for amputation likely next week. We will stop antibiotics 48 hours after procedure. 09/08: Patient is postop day 1 status post right femoral popliteal bypass tolerated well no acute distress. We will continue current management including antibiotics at this patient to stop in 24hours. Incision site remains intact. p er General surgeon "Right 2nd toe amputation could be scheduled for 09/10/21 or if needed, pt can be discharged and amputation can be scheduled as an outpt. If discharged, have pt f/u in my [facility] on 09/12/21." I have discussed with nursing staff will transfer patient to the medical floor if okay with the vascular surgeon. Patient continues on Plavix. Awaiting vascular physicians input on possible anticoagulation for DVT prophylaxis at minimum. History Interval history: Patient seen and examined this morning no acute distress reported overnight rounded with nursing staff at bedside. Hospitalist Physical - Physical exam Narrative exam: General appearance: Present: no acute distress - EENT Eyes: Present: PERRL, EOM intact ENT: hearing intact, clear oral mucosa, dentition normal - Neck Neck: Present: supple, normal ROM - Respiratory Respiratory effort: normal Respiratory: bilateral: CTA - Cardiovascular Rhythm: regular Heart Sounds: Present: S1 & S2. Absent: gallop, rub - Extremities Extremities: no ischemia, No edema, Full ROM - Abdominal General gastrointestinal: soft, non-tender, non-distended, normal bowel sounds - Integumentary Integumentary: Present: Right toe with necrotic gangrene ulcer. Malodorous. - Neurologic Neurologic: CNII-XII intact, moves all extremities - Constitutional Vitals: Temp Pulse Resp BP Pulse Ox 99.5 F 73 22 162/60 99 09/08/21 03:40 09/08/21 06:30 09/08/21 06:30 09/08/21 06:30 09/08/21 06:30 General appearance: Present: no acute distress Results - Labs CBC & Chem 7: 09/07/21 06:35 09/08/21 04:53 Labs: Laboratory Last Values WBC 11.1 K/mm3 (4.5-11.0) H 09/07/21 06:35 RBC 4.14 M/mm3 (3.65-5.03) 09/07/21 06:35 Hgb 13.3 gm/dl (11.8-15.2) 09/07/21 06:35 Hct 39.9 % (35.5-45.6) 09/07/21 06:35 MCV 96 fl (84-94) H 09/07/21 06:35 MCH 32 pg (28-32) 09/07/21 06:35 MCHC 33 % (32-34) 09/07/21 06:35 RDW 12.0 % (13.2-15.2) L 09/07/21 06:35 Plt Count 338 K/mm3 (140-440) 09/07/21 06:35 Lymph % (Auto) 16.5 % (13.4-35.0) 09/07/21 06:35 [place] % (Auto) 7.3 % (0.0-7.3) 09/07/21 06:35 Eos % (Auto) 1.1 % (0.0-4.3) 09/07/21 06:35 Baso % (Auto) 0.3 % (0.0-1.8) 09/07/21 06:35 Lymph # (Auto) 1.8 K/mm3 (1.2-5.4) 09/07/21 06:35 [place] # (Auto) 0.8 K/mm3 (0.0-0.8) 09/07/21 06:35 Eos # (Auto) 0.1 K/mm3 (0.0-0.4) 09/07/21 06:35 Baso # (Auto) 0.0 K/mm3 (0.0-0.1) 09/07/21 06:35 Seg Neutrophils % 74.8 % (40.0-70.0) H 09/07/21 06:35 Seg Neutrophils # 8.3 K/mm3 (1.8-7.7) H 09/07/21 06:35 PT 12.8 Sec. (12.2-14.9) 09/06/21 11:16 INR 0.87 (0.87-1.13) 09/06/21 11:16 APTT 34.8 Sec. (24.2-36.6) 09/06/21 11:16 Heparin Anti-Xa Level 0.19 U.I./ml (0.3-0.7) L 09/06/21 19:51 Sodium 141 mmol/L (137-145) 09/08/21 04:53 Potassium 4.1 mmol/L (3.6-5.0) 09/08/21 04:53 Chloride 102.4 mmol/L (98-107) 09/08/21 04:53 Carbon Dioxide 28 mmol/L (22-30) 09/08/21 04:53 Anion Gap 15 mmol/L 09/08/21 04:53 BUN 4 mg/dL (9-20) L 09/08/21 04:53 Creatinine 0.7 mg/dL (0.8-1.3) L 09/08/21 04:53 Estimated GFR > 60 ml/min 09/08/21 04:53 BUN/Creatinine Ratio 6 % 09/08/21 04:53 Glucose 187 mg/dL (75-100) H 09/08/21 04:53 POC Glucose 133 mg/dL (70-105) H 09/07/21 16:18 Hemoglobin A1c 6.5 % (4-6) H 09/06/21 07:06 Calcium 8.7 mg/dL (8.4-10.2) 09/08/21 04:53 Total Bilirubin 0.70 mg/dL (0.1-1.2) 09/04/21 15:27 AST 13 units/L (5-40) 09/04/21 15:27 ALT 10 units/L (7-56) 09/04/21 15:27 Alkaline Phosphatase 77 units/L (35-129) 09/04/21 15:27 Total Protein 7.8 g/dL (6.3-8.2) 09/04/21 15:27 Albumin 4.1 g/dL (3.9-5) 09/04/21 15:27 Albumin/Globulin Ratio 1.1 % 09/04/21 15:27 Blood Type A POSITIVE 09/07/21 04:00 Antibody Screen Negative 09/07/21 04:00 Hernadez/IV: Voiding Method Urinal Active Medications - Current Medications Current Medications: Generic Name Dose Route Start Last Admin Trade Name Freq PRN Reason Stop Dose Admin Acetaminophen 650 mg 09/04/21 18:30 Acetaminophen 325 Mg Tab PO Q4H PRN Pain MILD(1-3)/Fever >100.5/LANIER Hydrocodone Bitart/Acetaminophen 2 each 09/07/21 14:28 Hydrocodone/Acetaminophen 5-325 Mg Tab PO Q6H PRN Pain, Moderate (4-6) Albuterol 2.5 mg 09/04/21 18:11 Albuterol 2.5 Mg/3 Ml Nebu Q4HRT PRN Shortness Of Breath Atenolol 25 mg 09/06/21 12:00 09/07/21 16:37 Atenolol 25 Mg Tab PO Not Given DAILY NAZ Atorvastatin Calcium 10 mg 09/06/21 22:00 09/07/21 22:22 Atorvastatin 10 Mg Tab PO 10 mg QHS NAZ Administration Clopidogrel Bisulfate 75 mg 09/08/21 10:00 Clopidogrel 75 Mg Tab PO QDAY NAZ Dextrose 50 ml 09/04/21 18:30 Dextrose 50% In Water (25gm) 50 Ml Syringe IV Q30MIN PRN Hypoglycemia Protocol Ergocalciferol 50,000 unit 09/10/21 10:00 Ergocalciferol (Vit D2) 50,000 Unit Cap PO Mo@1000 NAZ Hydromorphone HCl 0.5 mg 09/04/21 18:30 09/06/21 11:42 Hydromorphone 0.5 Mg/0.5 Ml Inj IV 0.5 mg Q13H PRN Administration Pain , Severe (7-10) Sodium Chloride 1,000 mls @ 42 mls/hr 09/04/21 19:00 09/05/21 00:57 Nacl 0.9% 1000 Ml IV 42 mls/hr DIRECT NAZ Administration Ceftriaxone Sodium 1 gm in 50 mls @ 100 mls/hr 09/06/21 15:00 09/07/21 16:59 Rocephin/Ns 1 Gm/50 Ml IV 100 mls/hr Q24HR NAZ Administration Protocol Vancomycin HCl 1 gm in 250 mls @ 167.007 mls/hr 09/07/21 06:00 09/08/21 05:36 Vancomycin/Ns 1 Gm/250 Ml IV 167.007 mls/hr Q12H NAZ Administration Lactated Ringer's 1,000 mls @ 100 mls/hr 09/07/21 09:30 09/08/21 02:24 Lactated Ringers IV 09/08/21 09:29 100 mls/hr DIRECT NAZ Administration Insulin Human Isoph/Insulin Regular 6 unit 09/06/21 17:00 09/07/21 19:55 Insulin Nph/Regular 70/30 Inj SUB-Q 6 unit BIDDIAB NAZ Administration Insulin Human Lispro 0 unit 09/04/21 22:00 09/07/21 22:20 Insulin Lispro 100 Unit/Ml SUB-Q 2 unit ACHS NAZ Administration Protocol Lisinopril 10 mg 09/06/21 12:00 09/07/21 16:37 Lisinopril 10 Mg Tab PO Not Given QDAY [facility] Morphine Sulfate 4 mg 09/07/21 14:28 Morphine 4 Mg/1 Ml Inj IV Q4H PRN Pain , Severe (7-10) Morphine Sulfate 2 mg 09/07/21 14:28 Morphine 2 Mg/1 Ml Inj IV Q4H PRN Pain, Moderate (4-6) Naloxone HCl 0.1 mg 09/07/21 14:28 Naloxone 0.4 Mg/1 Ml Inj IV Q2MIN PRN Res Rate </= 8 or 02 SAT < 92% Ondansetron HCl 4 mg 09/04/21 18:30 Ondansetron 4 Mg/2 Ml Inj IV Q8H PRN Nausea And Vomiting Oxycodone/Acetaminophen 1 tab 09/04/21 18:30 Oxycodone /Acetaminophen 5-325mg Tab PO Q6H PRN Pain, Moderate (4-6) Sodium Chloride 10 ml 09/04/21 22:00 09/07/21 16:37 Sodium Chloride 0.9% 10 Ml Flush Syringe IV Not Given BID NAZ Sodium Chloride 10 ml 09/04/21 18:30 Sodium Chloride 0.9% 10 Ml Flush Syringe IV PRN PRN LINE FLUSH
--- NOTE | 2021-09-08 09:45 | Progress Note ---
Assessment and Plan Patient now with significantly improved blood flow down his right leg and will heal a amputation. Given the increased perfusion, patient would benefit from amputation during this hospitalization to prevent conversion from dry gangrene. Subjective Date of service: 09/08/21 Principal diagnosis: Gangrene of the second toe of the right foot Interval history: Patient with right second toe dry gangrene status post right common femoral artery endarterectomy with patch. Patient's right leg with no significant pain. His foot is warm and well perfused with minimal reperfusion edema and a faintly palpable dorsalis pedis. Objective - Constitutional Vitals: Vital Signs - 12hr 09/07/21 09/07/21 09/07/21 21:50 22:00 22:10 Temperature Pulse Rate 83 83 82 Pulse Rate [ From Monitor] Respiratory 22 26 H 26 H Rate Blood Pressure 132/47 130/49 130/49 O2 Sat by Pulse 98 98 97 Oximetry 09/07/21 09/07/21 09/07/21 22:20 22:30 22:40 Temperature Pulse Rate 86 80 79 Pulse Rate [ From Monitor] Respiratory 23 20 20 Rate Blood Pressure 130/49 130/49 130/49 O2 Sat by Pulse 97 98 97 Oximetry 09/07/21 09/07/21 09/07/21 22:50 23:00 23:10 Temperature Pulse Rate 83 89 81 Pulse Rate [ From Monitor] Respiratory 25 H 26 H 24 Rate Blood Pressure 130/49 130/49 130/49 O2 Sat by Pulse 97 96 95 Oximetry 09/07/21 09/07/21 09/07/21 23:20 23:30 23:39 Temperature 99.3 F Pulse Rate 82 84 Pulse Rate [ From Monitor] Respiratory 16 24 Rate Blood Pressure 130/49 130/49 O2 Sat by Pulse 96 95 Oximetry 09/07/21 09/07/21 09/08/21 23:40 23:50 00:00 Temperature Pulse Rate 80 80 78 Pulse Rate [ 78 From Monitor] Respiratory 19 27 H 28 H Rate Blood Pressure 130/49 130/49 131/47 O2 Sat by Pulse 96 95 96 Oximetry 09/08/21 09/08/21 09/08/21 00:10 00:20 00:30 Temperature Pulse Rate 78 78 79 Pulse Rate [ From Monitor] Respiratory 25 H 28 H 27 H Rate Blood Pressure 131/47 131/47 131/47 O2 Sat by Pulse 96 95 97 Oximetry 09/08/21 09/08/21 09/08/21 00:40 01:00 01:30 Temperature Pulse Rate 78 81 79 Pulse Rate [ From Monitor] Respiratory 26 H 24 28 H Rate Blood Pressure 131/47 150/59 131/47 O2 Sat by Pulse 97 97 95 Oximetry 09/08/21 09/08/21 09/08/21 02:00 02:30 03:00 Temperature Pulse Rate 78 78 80 Pulse Rate [ From Monitor] Respiratory 27 H 20 22 Rate Blood Pressure 150/55 150/55 127/45 O2 Sat by Pulse 96 97 96 Oximetry 09/08/21 09/08/21 09/08/21 03:30 03:40 04:00 Temperature 99.5 F Pulse Rate 79 77 Pulse Rate [ 79 From Monitor] Respiratory 25 H 26 H Rate Blood Pressure 127/45 127/45 O2 Sat by Pulse 96 98 Oximetry 09/08/21 09/08/21 09/08/21 04:30 05:00 05:30 Temperature Pulse Rate 78 76 76 Pulse Rate [ From Monitor] Respiratory 29 H 25 H 27 H Rate Blood Pressure 110/53 113/56 113/56 O2 Sat by Pulse 97 97 98 Oximetry 09/08/21 09/08/21 06:00 06:30 Temperature Pulse Rate 77 73 Pulse Rate [ From Monitor] Respiratory 23 22 Rate Blood Pressure 162/60 162/60 O2 Sat by Pulse 98 99 Oximetry General appearance: Present: no acute distress - EENT Eyes: EOM intact ENT: hearing intact - Neck Neck: supple, normal ROM - Respiratory Respiratory effort: normal Extremities: abnormal (Second toe gangrene) Extremity abnormal: edema (Mild reperfusion edema) - Gastrointestinal General gastrointestinal: Present: deferred Rectal Exam: deferred - Genitourinary Male genitourinary: deferred - Integumentary Integumentary: clear, warm, dry (Right common femoral endarterectomy incision soft with no significant hematoma) - Psychiatric Psychiatric: appropriate mood/affect, cooperative - Labs CBC & Chem 7: 09/07/21 06:35 09/08/21 04:53 Labs: Abnormal lab results 09/07/21 09/07/21 09/07/21 Range/Units 10:57 14:05 16:18 BUN (9-20) mg/dL Creatinine (0.8-1.3) mg/dL Glucose (75-100) mg/dL POC Glucose 118 H 127 H 133 H (70-105) mg/dL 09/07/21 09/08/21 09/08/21 Range/Units 21:43 04:53 08:05 BUN 4 L (9-20) mg/dL Creatinine 0.7 L (0.8-1.3) mg/dL Glucose 187 H (75-100) mg/dL POC Glucose 179 H 157 H (70-105) mg/dL Medications & Allergies - Medications Allergies/Adverse Reactions: Allergies No Known Allergies Allergy (Verified 09/06/21 08:06) Home Medications: Home Medications Medication Instructions Recorded Confirmed Last Taken Type AtorvaSTATin [Lipitor] 10 mg PO QHS 09/05/21 09/06/21 Unknown History Cholecalciferol (Vitamin D3) 50,000 unit PO QWEEK 09/05/21 09/06/21 Unknown History [Vitamin D3 50,000UNIT CAP] Insulin Lispro Prot/Lispro 0 unit SQ BID 09/05/21 09/06/21 Unknown History [HumaLOG MIX 75/25] atenoloL [Tenormin] 25 mg PO DAILY 09/05/21 09/06/21 Unknown History ramipriL [Ramipril] 5 mg PO QDAY 09/05/21 09/06/21 Unknown History Active Medications: Generic Name Dose Route Start Last Admin Trade Name Freq PRN Reason Stop Dose Admin Acetaminophen 650 mg 09/04/21 18:30 Acetaminophen 325 Mg Tab PO Q4H PRN Pain MILD(1-3)/Fever >100.5/LANIER Hydrocodone Bitart/Acetaminophen 2 each 09/07/21 14:28 Hydrocodone/Acetaminophen 5-325 Mg Tab PO Q6H PRN Pain, Moderate (4-6) Albuterol 2.5 mg 09/04/21 18:11 Albuterol 2.5 Mg/3 Ml Nebu IH Q4HRT PRN Shortness Of Breath Atenolol 25 mg 09/06/21 12:00 09/07/21 16:37 Atenolol 25 Mg Tab PO Not Given DAILY NAZ Atorvastatin Calcium 10 mg 09/06/21 22:00 09/07/21 22:22 Atorvastatin 10 Mg Tab PO 10 mg QHS NAZ Administration Clopidogrel Bisulfate 75 mg 09/08/21 10:00 Clopidogrel 75 Mg Tab PO QDAY NAZ Dextrose 50 ml 09/04/21 18:30 Dextrose 50% In Water (25gm) 50 Ml Syringe IV Q30MIN PRN Hypoglycemia Protocol Ergocalciferol 50,000 unit 09/10/21 10:00 Ergocalciferol (Vit D2) 50,000 Unit Cap PO Mo@1000 NAZ Heparin Sodium (Porcine) 5,000 unit 09/08/21 14:00 Heparin 5,000 Unit/1 Ml Vial SUB-Q Q8HR NAZ Hydromorphone HCl 0.5 mg 09/04/21 18:30 09/06/21 11:42 Hydromorphone 0.5 Mg/0.5 Ml Inj IV 0.5 mg Q13H PRN Administration Pain , Severe (7-10) Sodium Chloride 1,000 mls @ 42 mls/hr 09/04/21 19:00 09/05/21 00:57 Nacl 0.9% 1000 Ml IV 42 mls/hr DIRECT NAZ Administration Ceftriaxone Sodium 1 gm in 50 mls @ 100 mls/hr 09/06/21 15:00 09/07/21 16:59 Rocephin/Ns 1 Gm/50 Ml IV 100 mls/hr Q24HR NAZ Administration Protocol Vancomycin HCl 1 gm in 250 mls @ 167.007 mls/hr 09/07/21 06:00 09/08/21 05:36 Vancomycin/Ns 1 Gm/250 Ml IV 167.007 mls/hr Q12H NAZ Administration Insulin Human Isoph/Insulin Regular 6 unit 09/06/21 17:00 09/07/21 19:55 Insulin Nph/Regular 70/30 Inj SUB-Q 6 unit BIDDIAB NAZ Administration Insulin Human Lispro 0 unit 09/04/21 22:00 09/07/21 22:20 Insulin Lispro 100 Unit/Ml SUB-Q 2 unit ACHS NAZ Administration Protocol Lisinopril 10 mg 09/06/21 12:00 09/07/21 16:37 Lisinopril 10 Mg Tab PO Not Given QDAY [facility] Morphine Sulfate 4 mg 09/07/21 14:28 Morphine 4 Mg/1 Ml Inj IV Q4H PRN Pain , Severe (7-10) Morphine Sulfate 2 mg 09/07/21 14:28 Morphine 2 Mg/1 Ml Inj IV Q4H PRN Pain, Moderate (4-6) Naloxone HCl 0.1 mg 09/07/21 14:28 Naloxone 0.4 Mg/1 Ml Inj IV Q2MIN PRN Res Rate </= 8 or 02 SAT < 92% Ondansetron HCl 4 mg 09/04/21 18:30 Ondansetron 4 Mg/2 Ml Inj IV Q8H PRN Nausea And Vomiting Oxycodone/Acetaminophen 1 tab 09/04/21 18:30 Oxycodone /Acetaminophen 5-325mg Tab PO Q6H PRN Pain, Moderate (4-6) Sodium Chloride 10 ml 09/04/21 22:00 09/07/21 16:37 Sodium Chloride 0.9% 10 Ml Flush Syringe IV Not Given BID NAZ Sodium Chloride 10 ml 09/04/21 18:30 Sodium Chloride 0.9% 10 Ml Flush Syringe IV PRN PRN LINE FLUSH
[2021-09-08] MEDS ORDERED: CLOPIDOGREL 75 MG TAB PO SCH (10:00)
[2021-09-08] MEDS: LISINOPRIL 10 MG TAB PO SCH (10:02)
[2021-09-08] MEDS: INSULIN NPH/REGULAR 70/30 INJ SUB-Q SCH ×2 (10:02→17:06)
[2021-09-08] MEDS: atenoloL 25 MG TAB PO SCH (10:02)
[2021-09-08] MEDS: CLOPIDOGREL 75 MG TAB PO SCH (10:03)
[2021-09-08] MEDS: INSULIN LISPRO 100 UNIT/ML SUB-Q SCH ×4 (10:03→23:14)
[2021-09-08] MEDS: cefTRIAXone/NS 1 GM/50 ML 1 GM/50 ML BAG IV SCH (10:04)
[2021-09-08] MEDS: HEPARIN 5,000 UNIT/1 ML VIAL SUB-Q SCH ×3 (11:00→21:31)
[2021-09-08] MEDS: ACETAMINOPHEN 325 MG TAB PO PRN ×2 (16:56→22:52)
[2021-09-09 05:24] LABS: Hematocrit 36.5 % (35.5-45.6); Hemoglobin 12.2 gm/dl (11.8-15.2); Mean Corpuscular HGB Conc 33 % (32-34); Mean Corpuscular Volume 97 fl (84-94); Platelet Count 334 K/mm3 (140-440); Red Blood Count 3.76 M/mm3 (3.65-5.03)
[2021-09-09] MEDS: VANCOMYCIN/NS 1 GM/250 ML 1 GM/250 ML BAG IV SCH ×3 (05:39→21:46)
[2021-09-09] MEDS: HEPARIN 5,000 UNIT/1 ML VIAL SUB-Q SCH ×3 (05:39→21:46)
[2021-09-09 06:00] LABS: Blood Urea Nitrogen 6 mg/dL (9-20); Calcium 8.8 mg/dL (8.4-10.2); Hemolysis Index 0
[2021-09-09 06:07] LABS: BUN/Creatinine Ratio 10
[2021-09-09] MEDS: INSULIN LISPRO 100 UNIT/ML SUB-Q SCH ×4 (07:30→21:50)
[2021-09-09] MEDS: INSULIN NPH/REGULAR 70/30 INJ SUB-Q SCH ×2 (08:00→17:27)
--- NOTE | 2021-09-09 09:18 | Progress Note ---
Assessment and Plan Patient awaiting amputation of his right second toe. Patient with some tenderness at the endarterectomy site with no significant subcutaneous hematoma. Counseled patient that this will resolve over time. Subjective Date of service: 09/09/21 Principal diagnosis: Gangrene of the second toe of the right foot Interval history: Patient resting comfortably in bed. Status post right common femoral artery SFA endarterectomy. His foot is warm. There is a diffuse dusky discoloration over the dorsum of the foot which is improved from patient's presentation with reperfusion edema to the foot and lower leg. Patient with no complaints. Objective - Constitutional Vitals: Vital Signs - 12hr 09/08/21 09/09/21 09/09/21 22:40 05:58 07:37 Temperature 100.3 F H 99.5 F Pulse Rate 68 80 Respiratory 18 18 Rate Blood Pressure 120/42 134/49 O2 Sat by Pulse 98 98 98 Oximetry General appearance: Present: no acute distress - EENT Eyes: EOM intact ENT: hearing intact - Neck Neck: normal ROM - Respiratory Respiratory effort: normal Extremities: abnormal Extremity abnormal: edema - Gastrointestinal General gastrointestinal: Present: deferred Rectal Exam: deferred - Genitourinary Male genitourinary: deferred - Psychiatric Psychiatric: appropriate mood/affect, cooperative - Labs CBC & Chem 7: 09/09/21 04:48 09/09/21 04:48 Labs: Abnormal lab results 09/08/21 09/08/21 09/09/21 Range/Units 16:06 22:38 04:48 WBC 15.7 H (4.5-11.0) K/mm3 MCV 97 H (84-94) fl MCH 33 H (28-32) pg RDW 12.0 L (13.2-15.2) % BUN (9-20) mg/dL Creatinine (0.8-1.3) mg/dL Glucose (75-100) mg/dL POC Glucose 156 H 140 H (70-105) mg/dL 09/09/21 09/09/21 Range/Units 04:48 08:09 WBC (4.5-11.0) K/mm3 MCV (84-94) fl MCH (28-32) pg RDW (13.2-15.2) % BUN 6 L (9-20) mg/dL Creatinine 0.6 L (0.8-1.3) mg/dL Glucose 134 H (75-100) mg/dL POC Glucose 149 H (70-105) mg/dL Medications & Allergies - Medications Allergies/Adverse Reactions: Allergies No Known Allergies Allergy (Verified 09/06/21 08:06) Home Medications: Home Medications Medication Instructions Recorded Confirmed Last Taken Type AtorvaSTATin [Lipitor] 10 mg PO QHS 09/05/21 09/06/21 Unknown History Cholecalciferol (Vitamin D3) 50,000 unit PO QWEEK 09/05/21 09/06/21 Unknown History [Vitamin D3 50,000UNIT CAP] Insulin Lispro Prot/Lispro 0 unit SQ BID 09/05/21 09/06/21 Unknown History [HumaLOG MIX 75/25] atenoloL [Tenormin] 25 mg PO DAILY 09/05/21 09/06/21 Unknown History ramipriL [Ramipril] 5 mg PO QDAY 09/05/21 09/06/21 Unknown History Active Medications: Generic Name Dose Route Start Last Admin Trade Name Johnathanq PRN Reason Stop Dose Admin Acetaminophen 650 mg 09/04/21 18:30 09/08/21 22:52 Acetaminophen 325 Mg Tab PO 650 mg Q4H PRN Administration Pain MILD(1-3)/Fever >100.5/LANIER Albuterol 2.5 mg 09/04/21 18:11 Albuterol 2.5 Mg/3 Ml Nebu IH Q4HRT PRN Shortness Of Breath Atenolol 25 mg 09/06/21 12:00 09/08/21 10:02 Atenolol 25 Mg Tab PO 25 mg DAILY NAZ Administration Atorvastatin Calcium 10 mg 09/06/21 22:00 09/08/21 21:31 Atorvastatin 10 Mg Tab PO 10 mg QHS NAZ Administration Clopidogrel Bisulfate 75 mg 09/08/21 10:00 09/08/21 10:03 Clopidogrel 75 Mg Tab PO 75 mg QDAY NAZ Administration Dextrose 50 ml 09/04/21 18:30 Dextrose 50% In Water (25gm) 50 Ml Syringe IV Q30MIN PRN Hypoglycemia Protocol Ergocalciferol 50,000 unit 09/10/21 10:00 Ergocalciferol (Vit D2) 50,000 Unit Cap PO Mo@1000 NAZ Heparin Sodium (Porcine) 5,000 unit 09/08/21 11:00 09/09/21 05:39 Heparin 5,000 Unit/1 Ml Vial SUB-Q 5,000 unit Q8HR NAZ Administration Sodium Chloride 1,000 mls @ 42 mls/hr 09/04/21 19:00 09/05/21 00:57 Nacl 0.9% 1000 Ml IV 42 mls/hr DIRECT NAZ Administration Ceftriaxone Sodium 1 gm in 50 mls @ 100 mls/hr 09/06/21 15:00 09/08/21 10:04 Rocephin/Ns 1 Gm/50 Ml IV 100 mls/hr Q24HR [facility] Administration Protocol Vancomycin HCl 1 gm in 250 mls @ 167.007 mls/hr 09/09/21 13:00 Vancomycin/Ns 1 Gm/250 Ml IV Q8H NAZ Insulin Human Isoph/Insulin Regular 6 unit 09/06/21 17:00 09/09/21 08:00 Insulin Nph/Regular 70/30 Inj SUB-Q 6 unit BIDDIAB NAZ Administration Insulin Human Lispro 0 unit 09/04/21 22:00 09/09/21 07:30 Insulin Lispro 100 Unit/Ml SUB-Q Not Given ACHS [facility] Protocol Lisinopril 10 mg 09/06/21 12:00 09/08/21 10:02 Lisinopril 10 Mg Tab PO 10 mg QDAY [facility] Administration Morphine Sulfate 4 mg 09/07/21 14:28 Morphine 4 Mg/1 Ml Inj IV Q4H PRN Pain , Severe (7-10) Morphine Sulfate 2 mg 09/07/21 14:28 Morphine 2 Mg/1 Ml Inj IV Q4H PRN Pain, Moderate (4-6) Naloxone HCl 0.1 mg 09/07/21 14:28 Naloxone 0.4 Mg/1 Ml Inj IV Q2MIN PRN Res Rate </= 8 or 02 SAT < 92% Ondansetron HCl 4 mg 09/04/21 18:30 Ondansetron 4 Mg/2 Ml Inj IV Q8H PRN Nausea And Vomiting Oxycodone/Acetaminophen 1 tab 09/04/21 18:30 Oxycodone /Acetaminophen 5-325mg Tab PO Q6H PRN Pain, Moderate (4-6) Sodium Chloride 10 ml 09/04/21 22:00 09/08/21 21:32 Sodium Chloride 0.9% 10 Ml Flush Syringe IV 10 ml BID NAZ Administration Sodium Chloride 10 ml 09/04/21 18:30 Sodium Chloride 0.9% 10 Ml Flush Syringe IV PRN PRN LINE FLUSH
[2021-09-09] MEDS: cefTRIAXone/NS 1 GM/50 ML 1 GM/50 ML BAG IV SCH (11:07)
[2021-09-09] MEDS: CLOPIDOGREL 75 MG TAB PO SCH (11:07)
[2021-09-09] MEDS: LISINOPRIL 10 MG TAB PO SCH (11:08)
[2021-09-09] MEDS: atenoloL 25 MG TAB PO SCH (11:08)
[2021-09-09] MEDS: ACETAMINOPHEN 325 MG TAB PO PRN (23:48)
[2021-09-10] MEDS: VANCOMYCIN/NS 1 GM/250 ML 1 GM/250 ML BAG IV SCH ×3 (04:15→21:21)
[2021-09-10] MEDS: HEPARIN 5,000 UNIT/1 ML VIAL SUB-Q SCH ×3 (06:40→21:22)
[2021-09-10] MEDS: INSULIN NPH/REGULAR 70/30 INJ SUB-Q SCH ×2 (09:53→17:41)
[2021-09-10] MEDS: INSULIN LISPRO 100 UNIT/ML SUB-Q SCH ×4 (09:53→22:40)
[2021-09-10] MEDS: CLOPIDOGREL 75 MG TAB PO SCH (09:54)
[2021-09-10] MEDS: cefTRIAXone/NS 1 GM/50 ML 1 GM/50 ML BAG IV SCH (09:55)
[2021-09-10] MEDS ORDERED: ERGOCALCIFEROL (VIT D2) 50,000 UNIT CAP PO SCH (10:00)
[2021-09-10] MEDS: LISINOPRIL 10 MG TAB PO SCH (10:01)
[2021-09-10] MEDS: atenoloL 25 MG TAB PO SCH (10:02)
--- NOTE | 2021-09-10 10:16 | Progress Note ---
Assessment and Plan Assessment and plan: The patient is a 66-year-old male with a history of diabetes mellitus type II who states that approximately 2 weeks ago he hit his second toe resulting in a wound. He initially presented to the emergency department on 08/29/2021 however he left AMA. W/u included xray of the foot which revealed osteomyelitis of the right 2nd toe. He represented on 09/05/2021 with complaints of the wound progressively worsening with pain and turning black. He denied any fever or chills. He denied any history of previous claudication. He stated he smoked in his 20s however he does not currently smoke. Gangrene of right second toe Osteomyelitis of right second toe Right foot cellulitis Diabetes mellitus type 2 09/06/2021. Patient for right lower extremity angiography per vascular surgery. Right lower extremity angiography demonstrating 1cm marble of exophytic calcific atherosclerotic disease just distal to the origin of the SFA causing significantly decreased flow distally. This is not ideally amenable to percutaneous revascularization and the patient will be scheduled for right common femoral artery and SFA endarterectomy tomorrow scheduling in the OR permitting. Continue tight glycemic control. Follow-up hemoglobin A1c. Continue local wound care. Surgery following. ID consulted. Continue IV antibiotics of Unasyn for now. 09/07/2021. Patient for endarterectomy today per vascular surgery. Continue tight glycemic control. Follow-up hemoglobin A1c. Continue local wound care. Surgery following. ID recommends empiric ceftriaxone and vancomycin. Patient for amputation likely next week. We will stop antibiotics 48 hours after procedure. 09/08: Patient is postop day 1 status post right femoral popliteal bypass tolerated well no acute distress. We will continue current management including antibiotics at this patient to stop in 24hours. Incision site remains intact. per General surgeon "Right 2nd toe amputation could be scheduled for 09/10/21 or if needed, pt can be discharged and amputation can be scheduled as an outpt. If discharged, have pt f/u in my [facility] on 09/12/21." I have discussed with nursing staff will transfer patient to the medical floor if okay with the vascular surgeon. Patient continues on Plavix. Awaiting vascular physicians input on possible anticoagulation for DVT prophylaxis at minimum. 09/09/2021. Patient awaiting amputation of his right second toe. Continue vancomycin per ID recommendations. Patient with recent femoral-popliteal bypass which he tolerated well 09/10/2021. Continue IV antibiotics and wound care. Await vascular surgery for amputation of right second toe. Continue pain control and supportive care History Interval history: No new issues overnight Hospitalist Physical - Constitutional Vitals: Temp Pulse Resp BP Pulse Ox 99.8 F H 80 20 120/44 96 09/10/21 05:13 09/10/21 10:02 09/10/21 05:13 09/10/21 10:02 09/10/21 05:13 General appearance: Present: no acute distress - EENT Eyes: Present: PERRL, EOM intact ENT: hearing intact, clear oral mucosa, dentition normal - Neck Neck: Present: supple, normal ROM - Respiratory Respiratory effort: normal Respiratory: bilateral: CTA - Cardiovascular Rhythm: regular Heart Sounds: Present: S1 & S2. Absent: gallop, rub - Extremities Extremities: no ischemia, No edema, Full ROM - Abdominal General gastrointestinal: soft, non-tender, non-distended, normal bowel sounds - Integumentary Integumentary: Present: clear, warm, dry - Neurologic Neurologic: CNII-XII intact, moves all extremities Results - Labs CBC & Chem 7: 09/09/21 04:48 09/09/21 04:48 Labs: Laboratory Last Values WBC 15.7 K/mm3 (4.5-11.0) H 09/09/21 04:48 RBC 3.76 M/mm3 (3.65-5.03) 09/09/21 04:48 Hgb 12.2 gm/dl (11.8-15.2) 09/09/21 04:48 Hct 36.5 % (35.5-45.6) 09/09/21 04:48 MCV 97 fl (84-94) H 09/09/21 04:48 MCH 33 pg (28-32) H 09/09/21 04:48 MCHC 33 % (32-34) 09/09/21 04:48 RDW 12.0 % (13.2-15.2) L 09/09/21 04:48 Plt Count 334 K/mm3 (140-440) 09/09/21 04:48 Lymph % (Auto) 16.5 % (13.4-35.0) 09/07/21 06:35 Rich % (Auto) 7.3 % (0.0-7.3) 09/07/21 06:35 Eos % (Auto) 1.1 % (0.0-4.3) 09/07/21 06:35 Baso % (Auto) 0.3 % (0.0-1.8) 09/07/21 06:35 Lymph # (Auto) 1.8 K/mm3 (1.2-5.4) 09/07/21 06:35 Rich # (Auto) 0.8 K/mm3 (0.0-0.8) 09/07/21 06:35 Eos # (Auto) 0.1 K/mm3 (0.0-0.4) 09/07/21 06:35 Baso # (Auto) 0.0 K/mm3 (0.0-0.1) 09/07/21 06:35 Seg Neutrophils % 74.8 % (40.0-70.0) H 09/07/21 06:35 Seg Neutrophils # 8.3 K/mm3 (1.8-7.7) H 09/07/21 06:35 PT 12.8 Sec. (12.2-14.9) 09/06/21 11:16 INR 0.87 (0.87-1.13) 09/06/21 11:16 APTT 34.8 Sec. (24.2-36.6) 09/06/21 11:16 Heparin Anti-Xa Level 0.19 U.I./ml (0.3-0.7) L 09/06/21 19:51 Sodium 142 mmol/L (137-145) 09/09/21 04:48 Potassium 3.7 mmol/L (3.6-5.0) 09/09/21 04:48 Chloride 103.7 mmol/L (98-107) 09/09/21 04:48 Carbon Dioxide 29 mmol/L (22-30) 09/09/21 04:48 Anion Gap 13 mmol/L 09/09/21 04:48 BUN 6 mg/dL (9-20) L 09/09/21 04:48 Creatinine 0.6 mg/dL (0.8-1.3) L 09/09/21 04:48 Estimated GFR > 60 ml/min 09/09/21 04:48 BUN/Creatinine Ratio 10 % 09/09/21 04:48 Glucose 134 mg/dL (75-100) H 09/09/21 04:48 POC Glucose 177 mg/dL (70-105) H 09/09/21 21:23 Hemoglobin A1c 6.5 % (4-6) H 09/06/21 07:06 Calcium 8.8 mg/dL (8.4-10.2) 09/09/21 04:48 Total Bilirubin 0.70 mg/dL (0.1-1.2) 09/04/21 15:27 AST 13 units/L (5-40) 09/04/21 15:27 ALT 10 units/L (7-56) 09/04/21 15:27 Alkaline Phosphatase 77 units/L (35-129) 09/04/21 15:27 Total Protein 7.8 g/dL (6.3-8.2) 09/04/21 15:27 Albumin 4.1 g/dL (3.9-5) 09/04/21 15:27 Albumin/Globulin Ratio 1.1 % 09/04/21 15:27 Vancomycin Trough 5.9 ug/mL (5.0-20.0) 09/08/21 17:18 Blood Type A POSITIVE 09/07/21 04:00 Antibody Screen Negative 09/07/21 04:00 Microbiology: Microbiology 09/08/21 17:18 Peripheral/Venous Blood Culture - Preliminary NO GROWTH AFTER 24 HOURS 09/08/21 17:18 Peripheral/Venous Blood Culture - Preliminary NO GROWTH AFTER 24 HOURS Hernadez/IV: Voiding Method Toilet Active Medications - Current Medications Current Medications: Generic Name Dose Route Start Last Admin Trade Name Freq PRN Reason Stop Dose Admin Acetaminophen 650 mg 09/04/21 18:30 09/09/21 23:48 Acetaminophen 325 Mg Tab PO 650 mg Q4H PRN Administration Pain MILD(1-3)/Fever >100.5/LANIER Albuterol 2.5 mg 09/04/21 18:11 Albuterol 2.5 Mg/3 Ml Nebu IH Q4HRT PRN Shortness Of Breath Atenolol 25 mg 09/06/21 12:00 09/10/21 10:02 Atenolol 25 Mg Tab PO Not Given DAILY [facility] Atorvastatin Calcium 10 mg 09/06/21 22:00 09/09/21 21:46 Atorvastatin 10 Mg Tab PO 10 mg QHS NAZ Administration Clopidogrel Bisulfate 75 mg 09/08/21 10:00 09/10/21 09:54 Clopidogrel 75 Mg Tab PO 75 mg QDAY NAZ Administration Dextrose 50 ml 09/04/21 18:30 Dextrose 50% In Water (25gm) 50 Ml Syringe IV Q30MIN PRN Hypoglycemia Protocol Ergocalciferol 50,000 unit 09/10/21 10:00 09/10/21 10:02 Ergocalciferol (Vit D2) 50,000 Unit Cap PO 50,000 unit Mo@1000 NAZ Administration Heparin Sodium (Porcine) 5,000 unit 09/08/21 11:00 09/10/21 06:40 Heparin 5,000 Unit/1 Ml Vial SUB-Q 5,000 unit Q8HR NAZ Administration Sodium Chloride 1,000 mls @ 42 mls/hr 09/04/21 19:00 09/05/21 00:57 Nacl 0.9% 1000 Ml IV 42 mls/hr DIRECT NAZ Administration Ceftriaxone Sodium 1 gm in 50 mls @ 100 mls/hr 09/06/21 15:00 09/10/21 09:55 Rocephin/Ns 1 Gm/50 Ml IV 100 mls/hr Q24HR NAZ Administration Protocol Vancomycin HCl 1 gm in 250 mls @ 167.007 mls/hr 09/09/21 13:00 09/10/21 04:15 Vancomycin/Ns 1 Gm/250 Ml IV 167.007 mls/hr Q8H NAZ Administration Insulin Human Isoph/Insulin Regular 6 unit 09/06/21 17:00 09/10/21 09:53 Insulin Nph/Regular 70/30 Inj SUB-Q 6 unit BIDDIAB NAZ Administration Insulin Human Lispro 0 unit 09/04/21 22:00 09/10/21 09:53 Insulin Lispro 100 Unit/Ml SUB-Q 2 unit ACHS NAZ Administration Protocol Lisinopril 10 mg 09/06/21 12:00 09/10/21 10:01 Lisinopril 10 Mg Tab PO Not Given QDAY NAZ Morphine Sulfate 4 mg 09/07/21 14:28 Morphine 4 Mg/1 Ml Inj IV Q4H PRN Pain , Severe (7-10) Morphine Sulfate 2 mg 09/07/21 14:28 Morphine 2 Mg/1 Ml Inj IV Q4H PRN Pain, Moderate (4-6) Naloxone HCl 0.1 mg 09/07/21 14:28 Naloxone 0.4 Mg/1 Ml Inj IV Q2MIN PRN Res Rate </= 8 or 02 SAT < 92% Ondansetron HCl 4 mg 09/04/21 18:30 Ondansetron 4 Mg/2 Ml Inj IV Q8H PRN Nausea And Vomiting Oxycodone/Acetaminophen 1 tab 09/04/21 18:30 Oxycodone /Acetaminophen 5-325mg Tab PO Q6H PRN Pain, Moderate (4-6) Sodium Chloride 10 ml 09/04/21 22:00 09/10/21 10:03 Sodium Chloride 0.9% 10 Ml Flush Syringe IV 10 ml BID NAZ Administration Sodium Chloride 10 ml 09/04/21 18:30 Sodium Chloride 0.9% 10 Ml Flush Syringe IV PRN PRN LINE FLUSH
--- NOTE | 2021-09-10 13:55 | Progress Note ---
Assessment and Plan Cultures: None A/P: 66-year-old male with diabetes, used to smoke when he was in his 20s was adm itted to the hospital with soreness in his right foot and darkening of his right second toe concerning for gangrene: #Right second toe gangrene and associated osteomyelitis, peripheral vascular disease: Osteomyelitis seems more ischemic. Has significant peripheral vascular disease and is planned for right [employer] and SFA endarterectomy in the operating room. Patient has also been seen by Dr. Sparks and has been recommended amputation of the toe. #Peripheral vascular disease #Diabetes mellitus type 2 Recs: -Empiric ceftriaxone, vancomycin, target vancomycin trough between 10 to 15 mcg/mL -s/p surgical revascularization -Awaiting to amputation, stop antibiotics 48 hours after procedure Yuly Payan MD [facility] O: [phone] F: [phone] Subjective Date of service: 09/10/21 Principal diagnosis: Gangrene of the second toe of the right foot Interval history: Febrile of the weekend to 1-2.5, white count increased to 15.7. Blood cultures no growth so far. Was taken to the OR Friday. Objective - Exam Narrative Exam: Physical Exam: Constitutional: Alert, cooperative. No acute distress Head, Ears, Nose: Normocephalic, atraumatic. External ears, nose normal Eyes: Conjunctivae/corneas clear. No icterus. No ptosis. Neck: Supple, no meningeal signs Oral: Mask Cardiovascular: S1, S2 + Respiratory: Good air entry, clear to auscultation bilaterally GI: Soft, non-tender; bowel sounds normal. No peritoneal signs Musculoskeletal: Right leg distally with skin darkening, second toe with gangrenous changes. Skin: No rash or abscess Hem/Lymphatic: No palpable cervical or supraclavicular nodes. Psych: Mood ok. Affect normal Neurological: Awake, alert, oriented. No gross abnormality - Constitutional Vitals: Vital Signs Temp Pulse Resp BP Pulse Ox 99.0 F 75 16 125/51 97 09/10/21 11:47 09/10/21 11:47 09/10/21 11:47 09/10/21 11:47 09/10/21 11:47 Temperature -Last 24 Hours Temperature 99.0 F Temperature 99.8 F Temperature 100.1 F Temperature 97.7 F - Labs CBC & Chem 7: 09/09/21 04:48 09/09/21 04:48 Labs: Abnormal lab results 09/09/21 09/09/21 09/10/21 Range/Units 17:14 21:23 11:21 POC Glucose 162 H 177 H 215 H (70-105) mg/dL
--- NOTE | 2021-09-10 14:59 | Progress Note ---
Assessment and Plan Status post endarterectomy with incision clean, dry, and intact. On Plavix. Palpable right femoral pulse. Nonpalpable right pedal pulses. Right second digit has mixture of dry and wet gangrene with dry gangrene at the tip and wet gangrene at the base. Applied Betadine. Discussed with nurse to apply Betadine daily. Continue Plavix and follow-up with Dr. Cohn in 2 weeks Subjective Date of service: 09/10/21 Principal diagnosis: Gangrene of the second toe of the right foot Interval history: Right incision clean, dry, and intact. Right second digit mixture of dry and wet gangrene. Applied right second digit Betadine. Discussed with nurse to apply right second digit Betadine daily until amputation performed. Objective - Constitutional Vitals: Vital Signs - 12hr 09/10/21 09/10/21 09/10/21 05:13 10:00 10:01 Temperature 99.8 F H Pulse Rate 78 80 Respiratory 20 20 Rate Blood Pressure 120/44 Blood Pressure 124/51 [Left] O2 Sat by Pulse 96 97 Oximetry 09/10/21 09/10/21 10:02 11:47 Temperature 99.0 F Pulse Rate 80 75 Respiratory 16 Rate Blood Pressure 120/44 125/51 Blood Pressure [Left] O2 Sat by Pulse 97 Oximetry General appearance: Present: no acute distress - EENT Eyes: EOM intact ENT: hearing intact - Respiratory Respiratory effort: normal Extremities: normal temperature, normal color, abnormal (Right incision clean, dry, and intact with right femoral palpable pulse noted, nonpalpable right pedal pulses) - Gastrointestinal General gastrointestinal: Present: soft - Neurologic Neurologic: moves all extremities - Psychiatric Psychiatric: appropriate mood/affect, cooperative - Labs CBC & Chem 7: 09/09/21 04:48 09/09/21 04:48 Labs: Abnormal lab results 09/09/21 09/09/21 09/10/21 Range/Units 17:14 21:23 11:21 POC Glucose 162 H 177 H 215 H (70-105) mg/dL Medications & Allergies - Medications Allergies/Adverse Reactions: Allergies No Known Allergies Allergy (Verified 09/06/21 08:06) Home Medications: Home Medications Medication Instructions Recorded Confirmed Last Taken Type AtorvaSTATin [Lipitor] 10 mg PO QHS 09/05/21 09/06/21 Unknown History Cholecalciferol (Vitamin D3) 50,000 unit PO QWEEK 09/05/21 09/06/21 Unknown History [Vitamin D3 50,000UNIT CAP] Insulin Lispro Prot/Lispro 0 unit SQ BID 09/05/21 09/06/21 Unknown History [HumaLOG MIX 75/25] atenoloL [Tenormin] 25 mg PO DAILY 09/05/21 09/06/21 Unknown History ramipriL [Ramipril] 5 mg PO QDAY 09/05/21 09/06/21 Unknown History Active Medications: Generic Name Dose Route Start Last Admin Trade Name Freq PRN Reason Stop Dose Admin Acetaminophen 650 mg 09/04/21 18:30 09/09/21 23:48 Acetaminophen 325 Mg Tab PO 650 mg Q4H PRN Administration Pain MILD(1-3)/Fever >100.5/LANIER Albuterol 2.5 mg 09/04/21 18:11 Albuterol 2.5 Mg/3 Ml Nebu IH Q4HRT PRN Shortness Of Breath Atenolol 25 mg 09/06/21 12:00 09/10/21 10:02 Atenolol 25 Mg Tab PO Not Given DAILY NAZ Atorvastatin Calcium 10 mg 09/06/21 22:00 09/09/21 21:46 Atorvastatin 10 Mg Tab PO 10 mg QHS NAZ Administration Clopidogrel Bisulfate 75 mg 09/08/21 10:00 09/10/21 09:54 Clopidogrel 75 Mg Tab PO 75 mg QDAY NAZ Administration Dextrose 50 ml 09/04/21 18:30 Dextrose 50% In Water (25gm) 50 Ml Syringe IV Q30MIN PRN Hypoglycemia Protocol Ergocalciferol 50,000 unit 09/10/21 10:00 09/10/21 10:02 Ergocalciferol (Vit D2) 50,000 Unit Cap PO 50,000 unit Mo@1000 NAZ Administration Heparin Sodium (Porcine) 5,000 unit 09/08/21 11:00 09/10/21 13:43 Heparin 5,000 Unit/1 Ml Vial SUB-Q 5,000 unit Q8HR NAZ Administration Sodium Chloride 1,000 mls @ 42 mls/hr 09/04/21 19:00 09/05/21 00:57 Nacl 0.9% 1000 Ml IV 42 mls/hr DIRECT NAZ Administration Ceftriaxone Sodium 1 gm in 50 mls @ 100 mls/hr 09/06/21 15:00 09/10/21 09:55 Rocephin/Ns 1 Gm/50 Ml IV 100 mls/hr Q24HR NAZ Administration Protocol Vancomycin HCl 1 gm in 250 mls @ 167.007 mls/hr 09/09/21 13:00 09/10/21 12:46 Vancomycin/Ns 1 Gm/250 Ml IV 167.007 mls/hr Q8H NAZ Administration Insulin Human Isoph/Insulin Regular 6 unit 09/06/21 17:00 09/10/21 09:53 Insulin Nph/Regular 70/30 Inj SUB-Q 6 unit BIDDIAB NAZ Administration Insulin Human Lispro 0 unit 09/04/21 22:00 09/10/21 12:45 Insulin Lispro 100 Unit/Ml SUB-Q 3 unit ACHS NAZ Administration Protocol Lisinopril 10 mg 09/06/21 12:00 09/10/21 10:01 Lisinopril 10 Mg Tab PO Not Given QDAY [facility] Morphine Sulfate 4 mg 09/07/21 14:28 Morphine 4 Mg/1 Ml Inj IV Q4H PRN Pain , Severe (7-10) Morphine Sulfate 2 mg 09/07/21 14:28 Morphine 2 Mg/1 Ml Inj IV Q4H PRN Pain, Moderate (4-6) Naloxone HCl 0.1 mg 09/07/21 14:28 Naloxone 0.4 Mg/1 Ml Inj IV Q2MIN PRN Res Rate </= 8 or 02 SAT < 92% Ondansetron HCl 4 mg 09/04/21 18:30 Ondansetron 4 Mg/2 Ml Inj IV Q8H PRN Nausea And Vomiting Oxycodone/Acetaminophen 1 tab 09/04/21 18:30 Oxycodone /Acetaminophen 5-325mg Tab PO Q6H PRN Pain, Moderate (4-6) Sodium Chloride 10 ml 09/04/21 22:00 09/10/21 10:03 Sodium Chloride 0.9% 10 Ml Flush Syringe IV 10 ml BID NAZ Administration Sodium Chloride 10 ml 09/04/21 18:30 Sodium Chloride 0.9% 10 Ml Flush Syringe IV PRN PRN LINE FLUSH
--- NOTE | 2021-09-10 15:39 | Progress Note ---
Assessment and Plan - Patient Problems (1) Gangrene of toe of right foot Current Visit: Yes Status: Acute Plan to address problem: 1) NPO after MN 2) TMA of right 2nd toe tomorrow. 3) Meds reviewed. Only on Plaix. Subjective Date of service: 09/10/21 Patient Reports: Positive: no new complaints (Vascular notes read.) Objective Vital Signs - 12hr 09/10/21 09/10/21 09/10/21 05:13 10:00 10:01 Temperature 99.8 F H Pulse Rate 78 80 Respiratory 20 20 Rate Blood Pressure 120/44 Blood Pressure 124/51 [Left] O2 Sat by Pulse 96 97 Oximetry 09/10/21 09/10/21 10:02 11:47 Temperature 99.0 F Pulse Rate 80 75 Respiratory 16 Rate Blood Pressure 120/44 125/51 Blood Pressure [Left] O2 Sat by Pulse 97 Oximetry - Integumentary other (No change in gangrenous right 2nd toe.) - Labs 09/09/21 04:48 09/09/21 04:48
--- NOTE | 2021-09-10 16:23 | XRay Report ---
3 VIEWS RIGHT TOES INDICATION / CLINICAL INFORMATION: gangrene of right 2nd toe COMPARISON: None available. FINDINGS: BONES / JOINT(S): Cortical erosion involving the distal tip of the second toe distal phalanx, likely reflecting osteomyelitis. Apparent ulceration of the distal second toe skin and probable soft tissue gas within the distal soft tissues. No other evidence of cortical erosion is identified. If further i maging is warranted, MRI of the forefoot could better evaluate. SOFT TISSUES: Soft tissue swelling and soft tissue gas about the distal second toe.. ADDITIONAL FINDINGS: None. Signer Name: Hiren Ch MD Signed: 09/10/2021 4:19 PM Workstation Name: [id number]
[2021-09-11] MEDS: HEPARIN 5,000 UNIT/1 ML VIAL SUB-Q SCH ×3 (05:32→21:56)
[2021-09-11] MEDS: VANCOMYCIN/NS 1 GM/250 ML 1 GM/250 ML BAG IV SCH ×3 (05:32→21:55)
[2021-09-11 06:14] LABS: Basophils % (Auto) 0.3 % (0.0-1.8); Eosinophils # (Auto) 0.3 K/mm3 (0.0-0.4); Eosinophils % (Auto) 2.4 % (0.0-4.3); Hematocrit 34.5 % (35.5-45.6); Hemoglobin 11.5 gm/dl (11.8-15.2); Lymphocytes # (Auto) 1.9 K/mm3 (1.2-5.4); Lymphocytes % (Auto) 13.9 % (13.4-35.0); Mean Corpuscular HGB Conc 33 % (32-34); Mean Corpuscular Volume 96 fl (84-94); Monocytes # (Auto) 1.1 K/mm3 (0.0-0.8); Monocytes % (Auto) 7.9 % (0.0-7.3); Platelet Count 336 K/mm3 (140-440); Red Blood Count 3.58 M/mm3 (3.65-5.03); Red Cell Distribution Width 12.2 % (13.2-15.2)
[2021-09-11 06:19] LABS: Blood Urea Nitrogen 8 mg/dL (9-20); Calcium 8.7 mg/dL (8.4-10.2); Hemolysis Index 4
[2021-09-11 06:22] LABS: BUN/Creatinine Ratio 13
[2021-09-11] MEDS: cefTRIAXone/NS 1 GM/50 ML 1 GM/50 ML BAG IV SCH (09:15)
[2021-09-11] MEDS: LISINOPRIL 10 MG TAB PO SCH (09:16)
[2021-09-11] MEDS: INSULIN LISPRO 100 UNIT/ML SUB-Q SCH ×3 (09:16→18:37)
[2021-09-11] MEDS: INSULIN NPH/REGULAR 70/30 INJ SUB-Q SCH ×2 (09:16→18:37)
[2021-09-11] MEDS: CLOPIDOGREL 75 MG TAB PO SCH (13:44)
[2021-09-11] MEDS: atenoloL 25 MG TAB PO SCH (13:44)
--- NOTE | 2021-09-11 13:59 | Progress Note ---
Assessment and Plan Assessment and plan: The patient is a 66-year-old male with a history of diabetes mellitus type II who states that approximately 2 weeks ago he hit his second toe resulting in a wound. He initially presented to the emergency department on 08/29/2021 however he left AMA. W/u included xray of the foot which revealed osteomyelitis of the right 2nd toe. He represented on 09/05/2021 with complaints of the wound progressively worsening with pain and turning black. He denied any fever or chills. He denied any history of previous claudication. He stated he smoked in his 20s however he does not currently smoke. Hospital course 09/06/2021. Patient for right lower extremity angiography per vascular surgery. Right lower extremity angiography demonstrating 1cm marble of exophytic calcific atherosclerotic disease just distal to the origin of the SFA causing significantly decreased flow distally. This is not ideally amenable to percutaneous revascularization and the patient will be scheduled for right common femoral artery and SFA endarterectomy tomorrow scheduling in the OR permitting. Continue tight glycemic control. Follow-up hemoglobin A1c. Continue local wound care. Surgery following. ID consulted. Continue IV antibiotics of Unasyn for now. 09/07/2021. Patient for endarterectomy today per vascular surgery. Continue tight glycemic control. Follow-up hemoglobin A1c. Continue local wound care. Surgery following. ID recommends empiric ceftriaxone and vancomycin. Patient for amputation likely next week. We will stop antibiotics 48 hours after procedure. 09/08: Patient is postop day 1 status post right femoral popliteal bypass tolerated well no acute distress. We will continue current management including antibiotics at this patient to stop in 24hours. Incision site remains intact. per General surgeon "Right 2nd toe amputation could be scheduled for 09/10/21 or if needed, pt can be discharged and amputation can be scheduled as an outpt. If discharged, have pt f/u in my [facility]ound [facility] on 09/12/21." I have discussed with nursing staff will transfer patient to the medical floor if okay with the vascular surgeon. Patient continues on Plavix. Awaiting vascular physicians input on possible anticoagulation for DVT prophylaxis at minimum. 09/09/2021. Patient awaiting amputation of his right second toe. Continue vancomycin per ID recommendations. Patient with recent femoral-popliteal bypass which he tolerated well 09/10/2021. Continue IV antibiotics and wound care. Await vascular surgery for amputation of right second toe. Continue pain control and supportive care 09/11/2021: TMA today. Will follow post op. Assessment and Plan: #Gangrene of right second toe Awaiting surgical amputation Pain control with Percocet, morphine as needed #Osteomyelitis of right second toe Awaiting surgical amputation #Type 2 Diabetes with Hyperglycemia - a1c: 6.5 -7030 NPH insulin 6 units twice daily, SSI - blood glucose goal 140-180 while inpatient - continue to monitor, type glycemic control while patient is in hospital #Peripheral vascular disease Right PROTECTION AGENT and SFA endarterectomy. Statin, Plavix #Essential hypertension Atenolol 25 mg p.o. daily Lisinopril 10 mg p.o. daily History Interval history: No acute complaints. Anxious about procedure today. Hospitalist Physical - Physical exam Narrative exam: Physical Exam: Constitutional: Alert, cooperative. No acute distress Head, Ears, Nose: Normocephalic, atraumatic. External ears, nose normal Eyes: Conjunctivae/corneas clear. No icterus. No ptosis. Neck: Supple, no meningeal signs Oral: Mask Cardiovascular: S1, S2 + Respiratory: Good air entry, clear to auscultation bilaterally GI: Soft, non-tender; bowel sounds normal. No peritoneal signs Musculoskeletal: Right leg distally with skin darkening, second toe with gangrenous changes. Skin: No rash or abscess Hem/Lymphatic: No palpable cervical or supraclavicular nodes. Psych: Mood ok. Affect normal Neurological: Awake, alert, oriented. No gross abnormality - Constitutional Vitals: Temp Pulse Resp BP Pulse Ox 97.6 F 77 16 132/53 98 09/10/21 22:07 09/10/21 22:07 09/10/21 22:07 09/11/21 09:16 09/11/21 12:09 General appearance: Present: no acute distress Results - Labs CBC & Chem 7: 09/11/21 05:31 09/11/21 05:31 Labs: Laboratory Last Values WBC 13.6 K/mm3 (4.5-11.0) H 09/11/21 05:31 RBC 3.58 M/mm3 (3.65-5.03) L 09/11/21 05:31 Hgb 11.5 gm/dl (11.8-15.2) L 09/11/21 05:31 Hct 34.5 % (35.5-45.6) L 09/11/21 05:31 MCV 96 fl (84-94) H 09/11/21 05:31 MCH 32 pg (28-32) 09/11/21 05:31 MCHC 33 % (32-34) 09/11/21 05:31 RDW 12.2 % (13.2-15.2) L 09/11/21 05:31 Plt Count 336 K/mm3 (140-440) 09/11/21 05:31 Lymph % (Auto) 13.9 % (13.4-35.0) 09/11/21 05:31 [place] % (Auto) 7.9 % (0.0-7.3) H 09/11/21 05:31 Eos % (Auto) 2.4 % (0.0-4.3) 09/11/21 05:31 Baso % (Auto) 0.3 % (0.0-1.8) 09/11/21 05:31 Lymph # (Auto) 1.9 K/mm3 (1.2-5.4) 09/11/21 05:31 [place] # (Auto) 1.1 K/mm3 (0.0-0.8) H 09/11/21 05:31 Eos # (Auto) 0.3 K/mm3 (0.0-0.4) 09/11/21 05:31 Baso # (Auto) 0.0 K/mm3 (0.0-0.1) 09/11/21 05:31 Seg Neutrophils % 75.5 % (40.0-70.0) H 09/11/21 05:31 Seg Neutrophils # 10.3 K/mm3 (1.8-7.7) H 09/11/21 05:31 PT 12.8 Sec. (12.2-14.9) 09/06/21 11:16 INR 0.87 (0.87-1.13) 09/06/21 11:16 APTT 34.8 Sec. (24.2-36.6) 09/06/21 11:16 Heparin Anti-Xa Level 0.19 U.I./ml (0.3-0.7) L 09/06/21 19:51 Sodium 142 mmol/L (137-145) 09/11/21 05:31 Potassium 3.7 mmol/L (3.6-5.0) 09/11/21 05:31 Chloride 101.9 mmol/L (98-107) 09/11/21 05:31 Carbon Dioxide 29 mmol/L (22-30) 09/11/21 05:31 Anion Gap 15 mmol/L 09/11/21 05:31 BUN 8 mg/dL (9-20) L 09/11/21 05:31 Creatinine 0.6 mg/dL (0.8-1.3) L 09/11/21 05:31 Estimated GFR > 60 ml/min 09/11/21 05:31 BUN/Creatinine Ratio 13 % 09/11/21 05:31 Glucose 152 mg/dL (75-100) H 09/11/21 05:31 POC Glucose 119 mg/dL (70-105) H 09/11/21 11:57 Hemoglobin A1c 6.5 % (4-6) H 09/06/21 07:06 Calcium 8.7 mg/dL (8.4-10.2) 09/11/21 05:31 Total Bilirubin 0.70 mg/dL (0.1-1.2) 09/04/21 15:27 AST 13 units/L (5-40) 09/04/21 15:27 ALT 10 units/L (7-56) 09/04/21 15:27 Alkaline Phosphatase 77 units/L (35-129) 09/04/21 15:27 Total Protein 7.8 g/dL (6.3-8.2) 09/04/21 15:27 Albumin 4.1 g/dL (3.9-5) 09/04/21 15:27 Albumin/Globulin Ratio 1.1 % 09/04/21 15:27 Vancomycin Trough 10.8 ug/mL (5.0-20.0) 09/10/21 22:39 Blood Type A POSITIVE 09/07/21 04:00 Antibody Screen Negative 09/07/21 04:00 Microbiology: Microbiology 09/08/21 17:18 Peripheral/Venous Blood Culture - Preliminary NO GROWTH AFTER 48 HOURS 09/08/21 17:18 Peripheral/Venous Blood Culture - Preliminary NO GROWTH AFTER 48 HOURS Hernadez/IV: Voiding Method Toilet Active Medications - Current Medications Current Medications: Generic Name Dose Route Start Last Admin Trade Name Tala PRN Reason Stop Dose Admin Acetaminophen 650 mg 09/04/21 18:30 09/09/21 23:48 Acetaminophen 325 Mg Tab PO 650 mg Q4H PRN Administration Pain MILD(1-3)/Fever >100.5/LANIER Albuterol 2.5 mg 09/04/21 18:11 Albuterol 2.5 Mg/3 Ml Nebu IH Q4HRT PRN Shortness Of Breath Atenolol 25 mg 09/06/21 12:00 09/11/21 13:44 Atenolol 25 Mg Tab PO 25 mg DAILY NAZ Administration Atorvastatin Calcium 10 mg 09/06/21 22:00 09/10/21 21:21 Atorvastatin 10 Mg Tab PO 10 mg QHS NAZ Administration Clopidogrel Bisulfate 75 mg 09/08/21 10:00 09/11/21 13:44 Clopidogrel 75 Mg Tab PO 75 mg QDAY NAZ Administration Dextrose 50 ml 09/04/21 18:30 Dextrose 50% In Water (25gm) 50 Ml Syringe IV Q30MIN PRN Hypoglycemia Protocol Ergocalciferol 50,000 unit 09/10/21 10:00 09/10/21 10:02 Ergocalciferol (Vit D2) 50,000 Unit Cap PO 50,000 unit Mo@1000 NAZ Administration Heparin Sodium (Porcine) 5,000 unit 09/08/21 11:00 09/11/21 13:44 Heparin 5,000 Unit/1 Ml Vial SUB-Q 5,000 unit Q8HR NAZ Administration Sodium Chloride 1,000 mls @ 42 mls/hr 09/04/21 19:00 09/05/21 00:57 Nacl 0.9% 1000 Ml IV 42 mls/hr DIRECT NAZ Administration Ceftriaxone Sodium 1 gm in 50 mls @ 100 mls/hr 09/06/21 15:00 09/11/21 09:15 Rocephin/Ns 1 Gm/50 Ml IV 100 mls/hr Q24HR NAZ Administration Protocol Vancomycin HCl 1 gm in 250 mls @ 167.007 mls/hr 09/09/21 13:00 09/11/21 05:32 Vancomycin/Ns 1 Gm/250 Ml IV 167.007 mls/hr Q8H NAZ Administration Insulin Human Isoph/Insulin Regular 6 unit 09/06/21 17:00 09/11/21 09:16 Insulin Nph/Regular 70/30 Inj SUB-Q Not Given BIDDIAB [facility] Insulin Human Lispro 0 unit 09/04/21 22:00 09/11/21 12:27 Insulin Lispro 100 Unit/Ml SUB-Q Not Given ACHS [facility] Protocol Lisinopril 10 mg 09/06/21 12:00 09/11/21 09:16 Lisinopril 10 Mg Tab PO 10 mg QDAY NAZ Administration Morphine Sulfate 4 mg 09/07/21 14:28 Morphine 4 Mg/1 Ml Inj IV Q4H PRN Pain , Severe (7-10) Morphine Sulfate 2 mg 09/07/21 14:28 Morphine 2 Mg/1 Ml Inj IV Q4H PRN Pain, Moderate (4-6) Naloxone HCl 0.1 mg 09/07/21 14:28 Naloxone 0.4 Mg/1 Ml Inj IV Q2MIN PRN Res Rate </= 8 or 02 SAT < 92% Ondansetron HCl 4 mg 09/04/21 18:30 Ondansetron 4 Mg/2 Ml Inj IV Q8H PRN Nausea And Vomiting Oxycodone/Acetaminophen 1 tab 09/04/21 18:30 Oxycodone /Acetaminophen 5-325mg Tab PO Q6H PRN Pain, Moderate (4-6) Sodium Chloride 10 ml 09/04/21 22:00 09/11/21 09:17 Sodium Chloride 0.9% 10 Ml Flush Syringe IV 10 ml BID NAZ Administration Sodium Chloride 10 ml 09/04/21 18:30 Sodium Chloride 0.9% 10 Ml Flush Syringe IV PRN PRN LINE FLUSH
--- NOTE | 2021-09-11 15:51 | Progress Note ---
Assessment and Plan Cultures: None A/P: 66-year-old male with diabetes, used to smoke when he was in his 20s was adm itted to the hospital with soreness in his right foot and darkening of his right second toe concerning for gangrene: #Right second toe gangrene and associated osteomyelitis, peripheral vascular disease: Osteomyelitis seems more ischemic. 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 Patient has also been seen by Dr. Sparks and has been recommended amputation of the toe. #Peripheral vascular disease #Diabetes mellitus type 2 Recs: -Empiric ceftriaxone, vancomycin, target vancomycin trough between 10 to 15 mcg/mL -s/p surgical revascularization -Awaiting to amputation, stop antibiotics 48 hours after procedure Yuly Payan MD [facility] ([facility]) O: [phone] F: [phone] Subjective Date of service: 09/11/21 Principal diagnosis: Gangrene of the second toe of the right foot Interval history: Afebrile overnight, white count slightly improved at 13.6. Imagin personally reivewed: Toe XR: Soft tissue gas within the distal second toe. Objective - Exam Narrative Exam: Physical Exam: Constitutional: Alert, cooperative. No acute distress Head, Ears, Nose: Normocephalic, atraumatic. External ears, nose normal Eyes: Conjunctivae/corneas clear. No icterus. No ptosis. Neck: Supple, no meningeal signs Oral: Mask Cardiovascular: S1, S2 + Respiratory: Good air entry, clear to auscultation bilaterally GI: Soft, non-tender; bowel sounds normal. No peritoneal signs Musculoskeletal: Right leg distally with skin darkening, second toe with gangrenous changes. Skin: No rash or abscess Hem/Lymphatic: No palpable cervical or supraclavicular nodes. Psych: Mood ok. Affect normal Neurological: Awake, alert, oriented. No gross abnormality - Constitutional Vitals: Vital Signs Temp Pulse Resp BP Pulse Ox 97.6 F 77 16 132/53 98 09/10/21 22:07 09/10/21 22:07 09/10/21 22:07 09/11/21 09:16 09/11/21 12:09 Temperature -Last 24 Hours Temperature 97.6 F Temperature 98.1 F - Labs CBC & Chem 7: 09/11/21 05:31 09/11/21 05:31 Labs: Abnormal lab results 09/10/21 09/10/21 09/11/21 Range/Units 16:45 22:08 05:31 WBC 13.6 H (4.5-11.0) K/mm3 RBC 3.58 L (3.65-5.03) M/mm3 Hgb 11.5 L (11.8-15.2) gm/dl Hct 34.5 L (35.5-45.6) % MCV 96 H (84-94) fl RDW 12.2 L (13.2-15.2) % [place] % (Auto) 7.9 H (0.0-7.3) % [place] # (Auto) 1.1 H (0.0-0.8) K/mm3 Seg Neutrophils % 75.5 H (40.0-70.0) % Seg Neutrophils # 10.3 H (1.8-7.7) K/mm3 BUN (9-20) mg/dL Creatinine (0.8-1.3) mg/dL Glucose (75-100) mg/dL POC Glucose 142 H 196 H (70-105) mg/dL 09/11/21 09/11/21 09/11/21 Range/Units 05:31 07:14 11:57 WBC (4.5-11.0) K/mm3 RBC (3.65-5.03) M/mm3 Hgb (11.8-15.2) gm/dl Hct (35.5-45.6) % MCV (84-94) fl RDW (13.2-15.2) % [place] % (Auto) (0.0-7.3) % [place] # (Auto) (0.0-0.8) K/mm3 Seg Neutrophils % (40.0-70.0) % Seg Neutrophils # (1.8-7.7) K/mm3 BUN 8 L (9-20) mg/dL Creatinine 0.6 L (0.8-1.3) mg/dL Glucose 152 H (75-100) mg/dL POC Glucose 162 H 119 H (70-105) mg/dL
[2021-09-12] MEDS: INSULIN LISPRO 100 UNIT/ML SUB-Q SCH ×5 (01:51→21:26)
[2021-09-12] MEDS: VANCOMYCIN/NS 1 GM/250 ML 1 GM/250 ML BAG IV SCH ×3 (05:25→21:25)
[2021-09-12] MEDS: HEPARIN 5,000 UNIT/1 ML VIAL SUB-Q SCH ×3 (06:22→21:25)
--- NOTE | 2021-09-12 07:43 | Progress Note ---
Assessment and Plan Assessment and plan: The patient is a 66-year-old male with a history of diabetes mellitus type II who states that approximately 2 weeks ago he hit his second toe resulting in a wound. He initially presented to the emergency department on 08/29/2021 however he left AMA. W/u included xray of the foot which revealed osteomyelitis of the right 2nd toe. He represented on 09/05/2021 with complaints of the wound progressively worsening with pain and turning black. He denied any fever or chills. He denied any history of previous claudication. He stated he smoked in his 20s however he does not currently smoke. Hospital course 09/06/2021. Patient for right lower extremity angiography per vascular surgery. Right lower extremity angiography demonstrating 1cm marble of exophytic calcific atherosclerotic disease just distal to the origin of the SFA causing significantly decreased flow distally. This is not ideally amenable to percutaneous revascularization and the patient will be scheduled for right common femoral artery and SFA endarterectomy tomorrow scheduling in the OR permitting. Continue tight glycemic control. Follow-up hemoglobin A1c. Continue local wound care. Surgery following. ID consulted. Continue IV antibiotics of Unasyn for now. 09/07/2021. Patient for endarterectomy today per vascular surgery. Continue tight glycemic control. Follow-up hemoglobin A1c. Continue local wound care. Surgery following. ID recommends empiric ceftriaxone and vancomycin. Patient for amputation likely next week. We will stop antibiotics 48 hours after procedure. 09/08: Patient is postop day 1 status post right femoral popliteal bypass tolerated well no acute distress. We will continue current management including antibiotics at this patient to stop in 24hours. Incision site remains intact. per General surgeon "Right 2nd toe amputation could be scheduled for 09/10/21 or if needed, pt can be discharged and amputation can be scheduled as an outpt. If discharged, have pt f/u in my [facility] on 09/12/21." I have discussed with nursing staff will transfer patient to the medical floor if okay with the vascular surgeon. Patient continues on Plavix. Awaiting vascular physicians input on possible anticoagulation for DVT prophylaxis at minimum. 09/09/2021. Patient awaiting amputation of his right second toe. Continue vancomycin per ID recommendations. Patient with recent femoral-popliteal bypass which he tolerated well 09/10/2021. Continue IV antibiotics and wound care. Await vascular surgery for amputation of right second toe. Continue pain control and supportive care 09/11/2021: TMA post poned to tomorrow due to lack of OR staff. 09/12/2021: Continue treatment with abx, can d/c 48hrs post op per ID. TMA scheduled for today. Will follow post op. 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 Statin, Plavix #Essential hypertension Atenolol 25 mg p.o. daily Lisinopril 10 mg p.o. daily History Interval history: resting comfortably no acute complaints. Hospitalist Physical - Physical exam Narrative exam: Physical Exam: Constitutional: Alert, cooperative. No acute distress Head, Ears, Nose: Normocephalic, atraumatic. External ears, nose normal Eyes: Conjunctivae/corneas clear. No icterus. No ptosis. Neck: Supple, no meningeal signs Oral: Mask Cardiovascular: S1, S2 + Respiratory: Good air entry, clear to auscultation bilaterally GI: Soft, non-tender; bowel sounds normal. No peritoneal signs Musculoskeletal: Right leg distally with skin darkening, second toe with gangrenous changes. Skin: No rash or abscess Hem/Lymphatic: No palpable cervical or supraclavicular nodes. Psych: Mood ok. Affect normal Neurological: Awake, alert, oriented. No gross abnormality - Constitutional Vitals: Temp Pulse Resp BP Pulse Ox 97.8 F 66 16 138/52 99 09/12/21 04:35 09/11/21 21:38 09/12/21 04:35 09/12/21 04:35 09/11/21 22:00 General appearance: Present: no acute distress Results - Labs CBC & Chem 7: 09/11/21 05:31 09/11/21 05:31 Labs: Laboratory Last Values WBC 13.6 K/mm3 (4.5-11.0) H 09/11/21 05:31 RBC 3.58 M/mm3 (3.65-5.03) L 09/11/21 05:31 Hgb 11.5 gm/dl (11.8-15.2) L 09/11/21 05:31 Hct 34.5 % (35.5-45.6) L 09/11/21 05:31 MCV 96 fl (84-94) H 09/11/21 05:31 MCH 32 pg (28-32) 09/11/21 05:31 MCHC 33 % (32-34) 09/11/21 05:31 RDW 12.2 % (13.2-15.2) L 09/11/21 05:31 Plt Count 336 K/mm3 (140-440) 09/11/21 05:31 Lymph % (Auto) 13.9 % (13.4-35.0) 09/11/21 05:31 [place] % (Auto) 7.9 % (0.0-7.3) H 09/11/21 05:31 Eos % (Auto) 2.4 % (0.0-4.3) 09/11/21 05:31 Baso % (Auto) 0.3 % (0.0-1.8) 09/11/21 05:31 Lymph # (Auto) 1.9 K/mm3 (1.2-5.4) 09/11/21 05:31 [place] # (Auto) 1.1 K/mm3 (0.0-0.8) H 09/11/21 05:31 Eos # (Auto) 0.3 K/mm3 (0.0-0.4) 09/11/21 05:31 Baso # (Auto) 0.0 K/mm3 (0.0-0.1) 09/11/21 05:31 Seg Neutrophils % 75.5 % (40.0-70.0) H 09/11/21 05:31 Seg Neutrophils # 10.3 K/mm3 (1.8-7.7) H 09/11/21 05:31 PT 12.8 Sec. (12.2-14.9) 09/06/21 11:16 INR 0.87 (0.87-1.13) 09/06/21 11:16 APTT 34.8 Sec. (24.2-36.6) 09/06/21 11:16 Heparin Anti-Xa Level 0.19 U.I./ml (0.3-0.7) L 09/06/21 19:51 Sodium 142 mmol/L (137-145) 09/11/21 05:31 Potassium 3.7 mmol/L (3.6-5.0) 09/11/21 05:31 Chloride 101.9 mmol/L (98-107) 09/11/21 05:31 Carbon Dioxide 29 mmol/L (22-30) 09/11/21 05:31 Anion Gap 15 mmol/L 09/11/21 05:31 BUN 8 mg/dL (9-20) L 09/11/21 05:31 Creatinine 0.6 mg/dL (0.8-1.3) L 09/11/21 05:31 Estimated GFR > 60 ml/min 09/11/21 05:31 BUN/Creatinine Ratio 13 % 09/11/21 05:31 Glucose 152 mg/dL (75-100) H 09/11/21 05:31 POC Glucose 137 mg/dL (70-105) H 09/11/21 21:36 Hemoglobin A1c 6.5 % (4-6) H 09/06/21 07:06 Calcium 8.7 mg/dL (8.4-10.2) 09/11/21 05:31 Total Bilirubin 0.70 mg/dL (0.1-1.2) 09/04/21 15:27 AST 13 units/L (5-40) 09/04/21 15:27 ALT 10 units/L (7-56) 09/04/21 15:27 Alkaline Phosphatase 77 units/L (35-129) 09/04/21 15:27 Total Protein 7.8 g/dL (6.3-8.2) 09/04/21 15:27 Albumin 4.1 g/dL (3.9-5) 09/04/21 15:27 Albumin/Globulin Ratio 1.1 % 09/04/21 15:27 Vancomycin Trough 10.8 ug/mL (5.0-20.0) 09/10/21 22:39 Blood Type A POSITIVE 09/07/21 04:00 Antibody Screen Negative 09/07/21 04:00 Microbiology: Microbiology 09/08/21 17:18 Peripheral/Venous Blood Culture - Preliminary NO GROWTH AFTER 72 HOURS 09/08/21 17:18 Peripheral/Venous Blood Culture - Preliminary NO GROWTH AFTER 72 HOURS Hernadez/IV: Voiding Method Urinal Active Medications - Current Medications Current Medications: Generic Name Dose Route Start Last Admin Trade Name Freq PRN Reason Stop Dose Admin Acetaminophen 650 mg 09/04/21 18:30 09/09/21 23:48 Acetaminophen 325 Mg Tab PO 650 mg Q4H PRN Administration Pain MILD(1-3)/Fever >100.5/LANIER Albuterol 2.5 mg 09/04/21 18:11 Albuterol 2.5 Mg/3 Ml Nebu IH Q4HRT PRN Shortness Of Breath Atenolol 25 mg 09/06/21 12:00 09/11/21 13:44 Atenolol 25 Mg Tab PO 25 mg DAILY NAZ Administration Atorvastatin Calcium 10 mg 09/06/21 22:00 09/11/21 21:55 Atorvastatin 10 Mg Tab PO 10 mg QHS NAZ Administration Clopidogrel Bisulfate 75 mg 09/08/21 10:00 09/11/21 13:44 Clopidogrel 75 Mg Tab PO 75 mg QDAY NAZ Administration Dextrose 50 ml 09/04/21 18:30 Dextrose 50% In Water (25gm) 50 Ml Syringe IV Q30MIN PRN Hypoglycemia Protocol Ergocalciferol 50,000 unit 09/10/21 10:00 09/10/21 10:02 Ergocalciferol (Vit D2) 50,000 Unit Cap PO 50,000 unit Mo@1000 NAZ Administration Heparin Sodium (Porcine) 5,000 unit 09/08/21 11:00 09/12/21 06:22 Heparin 5,000 Unit/1 Ml Vial SUB-Q 5,000 unit Q8HR NAZ Administration Sodium Chloride 1,000 mls @ 42 mls/hr 09/04/21 19:00 09/05/21 00:57 Nacl 0.9% 1000 Ml IV 42 mls/hr DIRECT NAZ Administration Ceftriaxone Sodium 1 gm in 50 mls @ 100 mls/hr 09/06/21 15:00 09/11/21 09:15 Rocephin/Ns 1 Gm/50 Ml IV 100 mls/hr Q24HR NAZ Administration Protocol Vancomycin HCl 1 gm in 250 mls @ 167.007 mls/hr 09/09/21 13:00 09/12/21 05:25 Vancomycin/Ns 1 Gm/250 Ml IV 167.007 mls/hr Q8H NAZ Administration Insulin Human Isoph/Insulin Regular 6 unit 09/06/21 17:00 09/11/21 18:37 Insulin Nph/Regular 70/30 Inj SUB-Q 6 unit BIDDIAB NAZ Administration Insulin Human Lispro 0 unit 09/04/21 22:00 09/12/21 01:51 Insulin Lispro 100 Unit/Ml SUB-Q Not Given ACHS [facility] Protocol Lisinopril 10 mg 09/06/21 12:00 09/11/21 09:16 Lisinopril 10 Mg Tab PO 10 mg QDAY NAZ Administration Morphine Sulfate 4 mg 09/07/21 14:28 Morphine 4 Mg/1 Ml Inj IV Q4H PRN Pain , Severe (7-10) Morphine Sulfate 2 mg 09/07/21 14:28 Morphine 2 Mg/1 Ml Inj IV Q4H PRN Pain, Moderate (4-6) Naloxone HCl 0.1 mg 09/07/21 14:28 Naloxone 0.4 Mg/1 Ml Inj IV Q2MIN PRN Res Rate </= 8 or 02 SAT < 92% Ondansetron HCl 4 mg 09/04/21 18:30 Ondansetron 4 Mg/2 Ml Inj IV Q8H PRN Nausea And Vomiting Oxycodone/Acetaminophen 1 tab 09/04/21 18:30 Oxycodone /Acetaminophen 5-325mg Tab PO Q6H PRN Pain, Moderate (4-6) Sodium Chloride 10 ml 09/04/21 22:00 09/11/21 23:30 Sodium Chloride 0.9% 10 Ml Flush Syringe IV 10 ml BID NAZ Administration Sodium Chloride 10 ml 09/04/21 18:30 Sodium Chloride 0.9% 10 Ml Flush Syringe IV PRN PRN LINE FLUSH
[2021-09-12] MEDS: INSULIN NPH/REGULAR 70/30 INJ SUB-Q SCH ×2 (08:00→17:00)
[2021-09-12] MEDS: CLOPIDOGREL 75 MG TAB PO SCH (10:00)
[2021-09-12] MEDS: LISINOPRIL 10 MG TAB PO SCH (10:00)
[2021-09-12] MEDS: atenoloL 25 MG TAB PO SCH (12:19)
[2021-09-12] MEDS: cefTRIAXone/NS 1 GM/50 ML 1 GM/50 ML BAG IV SCH (12:24)
--- NOTE | 2021-09-12 14:22 | Anesthesia Day of Surgery ---
Anesthesia Day of Surgery - Day of Surgery Patient Examined: Yes Patient H&P Reviewed: Yes Patient is NPO: Yes Beta Blockers: No Cardiac Clearance: No Pulmonary Clearance: No Samuel's Test: N/A
--- NOTE | 2021-09-12 14:22 | Anesthesia Consultation ---
Anesthesia Consult and Med Hx Date of service: 09/12/21 - Airway Anesthetic Teeth Evaluation: Good, Crowns ROM Head & Neck: Adequate Mental/Hyoid Distance: Adequate Mallampati Class: Class I Intubation Access Assessment: Good - Pulmonary Exam CTA: Yes - Cardiac Exam Cardiac Exam: RRR - Pre-Operative Health Status ASA Pre-Surgery Classification: ASA2 Proposed Anesthetic Plan: General - Pulmonary Hx Smoking: No Hx Asthma: No Hx Pneumonia: No Hx Sleep Apnea: No - Cardiovascular System Hx Hypertension: Yes Hx Heart Attack/AMI: No Hx Peripheral Vascular Disease: Yes - Central Nervous System Hx Neuromuscular Disorder: No Hx Seizures: No CVA: No Hx Psychiatric Problems: No - Gastrointestinal Hx Gastroesophageal Reflux Disease: No - Endocrine Hx Renal Disease: No Hx Liver Disease: No Hx Insulin Dependent Diabetes: Yes - Other Systems Hx Alcohol Use: No Hx Cancer: No - Additional Comments Anesthesia Medical History Comments: Examined immediately prior to procedure. No clinical change overnight. No hx anesthetic complications.
[2021-09-12] MEDS ORDERED: ONDANSETRON 4 MG/2 ML INJ ONE (16:12)
[2021-09-12] MEDS ORDERED: fentaNYL 100 MCG/2 ML INJ ONE (16:12)
[2021-09-12] MEDS ORDERED: LIDOCAINE MPF (2%) 20 MG/1 ML VIAL 5 ML ONE (16:12)
[2021-09-12] MEDS ORDERED: propofoL 200 MG/20 ML VIAL IV ONE (16:13)
--- NOTE | 2021-09-12 17:16 | Progress Note ---
Assessment and Plan Cultures: None A/P: 66-year-old male with diabetes, used to smoke when he was in his 20s was adm itted to the hospital with soreness in his right foot and darkening of his right second toe concerning for gangrene: #Right second toe gangrene and associated osteomyelitis, peripheral vascular disease: Osteomyelitis seems more ischemic. 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 Patient has also been seen by Dr. Sparks and has been recommended amputation of the toe. #Peripheral vascular disease #Diabetes mellitus type 2 Recs: -Empiric ceftriaxone, vancomycin, target vancomycin trough between 10 to 15 mcg/mL -s/p surgical revascularization -Awaiting to amputation, stop antibiotics 48 hours after procedure Yuly Payan MD [facility] ([facility]) O: [phone] F: [phone] Subjective Date of service: 09/12/21 Principal diagnosis: Gangrene of the second toe of the right foot Interval history: Afebrile, no acute change. For amputation today. Objective - Exam Narrative Exam: Physical Exam: Constitutional: Alert, cooperative. No acute distress Head, Ears, Nose: Normocephalic, atraumatic. External ears, nose normal Eyes: Conjunctivae/corneas clear. No icterus. No ptosis. Neck: Supple, no meningeal signs Oral: Mask Cardiovascular: S1, S2 + Respiratory: Good air entry, clear to auscultation bilaterally GI: Soft, non-tender; bowel sounds normal. No peritoneal signs Musculoskeletal: Right leg distally with skin darkening, second toe with gangrenous changes. Skin: No rash or abscess Hem/Lymphatic: No palpable cervical or supraclavicular nodes. Psych: Mood ok. Affect normal Neurological: Awake, alert, oriented. No gross abnormality - Constitutional Vitals: Vital Signs Temp Pulse Resp BP Pulse Ox 98.3 F 75 14 160/62 98 09/12/21 16:50 09/12/21 16:50 09/12/21 16:50 09/12/21 16:50 09/12/21 16:50 Temperature -Last 24 Hours Temperature 98.3 F Temperature 97.8 F Temperature 98.8 F - Labs CBC & Chem 7: 09/11/21 05:31 06/14/22 05:31 Labs: Abnormal lab results 09/11/21 09/12/21 09/12/21 Range/Units 21:36 07:15 11:55 POC Glucose 137 H 167 H 141 H (70-105) mg/dL
[2021-09-12] MEDS ORDERED: MIDAZOLAM 2 MG/2 ML INJ ONE (17:19)
[2021-09-12] MEDS ORDERED: PHENYLEPHRINE/NS 1,000 MCG/10 ML SYRINGE (OR USE) IV ONE (17:37)
[2021-09-12] MEDS ORDERED: ceFAZolin 1 GM VIAL ONE (17:38)
[2021-09-12] MEDS ORDERED: SODIUM CHLORIDE 0.9% IRR 1,000 ML BOTTLE IR ONE (17:49)
[2021-09-12] MEDS ORDERED: ONDANSETRON 4 MG/2 ML INJ IV PRN (18:32)
[2021-09-12] MEDS ORDERED: HYDROmorphone 0.5 MG/0.5 ML INJ IV PRN (18:32)
--- NOTE | 2021-09-12 18:32 | Procedure Note ---
Date of procedure: 09/12/21 Pre-op diagnosis: Gangrene, right 2nd toe Post-op diagnosis: same Procedure: Right 2nd TMA Description of procedure: Pt was placed supine on the OR table. General anesthesia was administered. Right foot was prepped and draped. An elliptical incision was made about the 2nd toe and the toe amputated at the MTP joint. The 2nd metatarsal head was amputated with a bone saw. Tendons were maximally retracted and amputated. Hemostasis was obtained with the Bovie. Wound was closed with multiple interrupted vertical mattress sutures of 3-0 nylon. Xeroform gauze, 4 X 4 fluffs and Kerlix/Coban wraps were applied. Pt tolerated the procedure well. Pt was taken to PACU in stable condition. Pt can be discharged this evening from my perspective. He should f/u in my office in 2 weeks. He should keep the foot dry but can bathe while keeping the foot dry in 3 days. No weight bearing on the right foot. Diet is consistent carbohydrate. Rx's should include your narcotic of choice + Keflex, 500 mg po q8h X 7 days. Pt can call me for any questions after discharge. Anesthesia: other (LMA) Surgeon: CONCETTA CASTRO Estimated blood loss: minimal Pathology: list (1) Right 2nd toe 2) Right 2nd metatarsal head) Specimen disposition: to lab Condition: stable Disposition: PACU
[2021-09-12] MEDS: HYDROmorphone 0.5 MG/0.5 ML INJ IV PRN ×2 (18:44→18:55)
[2021-09-12] MEDS: SODIUM CHLORIDE 0.9% 1000 ML 1,000 ML IV SCH (21:26)
[2021-09-13] MEDS: ACETAMINOPHEN 325 MG TAB PO PRN (05:00)
[2021-09-13] MEDS: HEPARIN 5,000 UNIT/1 ML VIAL SUB-Q SCH ×3 (05:01→22:05)
[2021-09-13] MEDS: VANCOMYCIN/NS 1 GM/250 ML 1 GM/250 ML BAG IV SCH ×3 (05:01→22:05)
[2021-09-13] MEDS: INSULIN LISPRO 100 UNIT/ML SUB-Q SCH ×4 (09:00→22:06)
[2021-09-13] MEDS: INSULIN NPH/REGULAR 70/30 INJ SUB-Q SCH ×2 (09:00→17:13)
[2021-09-13] MEDS: cefTRIAXone/NS 1 GM/50 ML 1 GM/50 ML BAG IV SCH (09:57)
[2021-09-13] MEDS: CLOPIDOGREL 75 MG TAB PO SCH (09:59)
[2021-09-13] MEDS ORDERED: NON-FORMULARY EACH (Cholecalciferol (Vitamin D3) [Vitamin D3 50,000unit Cap] 1,250 MCG Cap PO SCH (10:00)
[2021-09-13] MEDS: atenoloL 25 MG TAB PO SCH (10:01)
[2021-09-13] MEDS: LISINOPRIL 10 MG TAB PO SCH (10:02)
[2021-09-13] MEDS: SODIUM CHLORIDE 0.9% 1000 ML 1,000 ML IV SCH (13:05)
--- NOTE | 2021-09-13 15:02 | Progress Note ---
<KWAME MCCONNELL - Last Filed: 09/13/21 14:58> Assessment and Plan Assessment and plan: Gangrene of right second toe s/p amputation on 09/[address] Sparks -PT/OT eval pending -Case mgmt following with plans for home wound care and PT/OT pain mgmt Osteomyelitis of right second toe see #1 DM2 -Hgb a1c: 6.5 -POC BG monitoring -On scheduled NPH and, SSI coverage prn Peripheral vascular disease -Right RAISED PRINTER and SFA endarterectomy -Statin, Plavix Essential hypertension -Atenolol 25 mg p.o. daily -Lisinopril 10 mg p.o. daily History Interval history: DM complicated by Diabetic foot ulcer admitted for gangrene of right second toe and cellulitis of right foot. On 09/12right second metatarsal amputation and tendons were maximally retracted and amputated. Per Dr. Sparks's note patient is to follow-up in clinic in 2 weeks. Consult was placed this morning for case management with anticipation of home wound care and physical therapy needs. Pt is seen sitting up in bed. He is able to wiggle/ move right toes. Denies tingling, right foot pain. States he is ready to go home and anticpates his sister will helpt to provide care for him. No overnight events reported. Hospitalist Physical - Constitutional Vitals: Temp Pulse Resp BP Pulse Ox 98.4 F 71 18 128/45 98 09/13/21 05:16 09/13/21 10:02 09/13/21 10:00 09/13/21 10:02 09/13/21 10:00 General appearance: Present: no acute distress - EENT Eyes: Present: PERRL, EOM intact ENT: hearing intact, clear oral mucosa, dentition normal - Neck Neck: Present: supple, normal ROM - Respiratory Respiratory effort: normal Respiratory: bilateral: CTA - Cardiovascular Heart Sounds: Present: S1 & S2. Absent: systolic murmur, diastolic murmur - Extremities Extremity abnormal: edema (right foot in original surgical dressing ) Peripheral Pulses: within normal limits - Abdominal General gastrointestinal: soft, non-tender, normal bowel sounds - Integumentary Integumentary: Present: clear, warm, dry - Psychiatric Psychiatric: appropriate mood/affect, cooperative - Neurologic Neurologic: CNII-XII intact - Allied Health Allied health notes reviewed: nursing Results - Labs CBC & Chem 7: 09/11/21 05:31 09/11/21 05:31 Labs: Laboratory Last Values WBC 13.6 K/mm3 (4.5-11.0) H 09/11/21 05:31 RBC 3.58 M/mm3 (3.65-5.03) L 09/11/21 05:31 Hgb 11.5 gm/dl (11.8-15.2) L 09/11/21 05:31 Hct 34.5 % (35.5-45.6) L 09/11/21 05:31 MCV 96 fl (84-94) H 09/11/21 05:31 MCH 32 pg (28-32) 09/11/21 05:31 MCHC 33 % (32-34) 09/11/21 05:31 RDW 12.2 % (13.2-15.2) L 09/11/21 05:31 Plt Count 336 K/mm3 (140-440) 09/11/21 05:31 Lymph % (Auto) 13.9 % (13.4-35.0) 09/11/21 05:31 Haskell % (Auto) 7.9 % (0.0-7.3) H 09/11/21 05:31 Eos % (Auto) 2.4 % (0.0-4.3) 09/11/21 05:31 Baso % (Auto) 0.3 % (0.0-1.8) 09/11/21 05:31 Lymph # (Auto) 1.9 K/mm3 (1.2-5.4) 09/11/21 05:31 Haskell # (Auto) 1.1 K/mm3 (0.0-0.8) H 09/11/21 05:31 Eos # (Auto) 0.3 K/mm3 (0.0-0.4) 09/11/21 05:31 Baso # (Auto) 0.0 K/mm3 (0.0-0.1) 09/11/21 05:31 Seg Neutrophils % 75.5 % (40.0-70.0) H 09/11/21 05:31 Seg Neutrophils # 10.3 K/mm3 (1.8-7.7) H 09/11/21 05:31 PT 12.8 Sec. (12.2-14.9) 09/06/21 11:16 INR 0.87 (0.87-1.13) 09/06/21 11:16 APTT 34.8 Sec. (24.2-36.6) 09/06/21 11:16 Heparin Anti-Xa Level 0.19 U.I./ml (0.3-0.7) L 09/06/21 19:51 Sodium 142 mmol/L (137-145) 09/11/21 05:31 Potassium 3.7 mmol/L (3.6-5.0) 09/11/21 05:31 Chloride 101.9 mmol/L (98-107) 09/11/21 05:31 Carbon Dioxide 29 mmol/L (22-30) 09/11/21 05:31 Anion Gap 15 mmol/L 09/11/21 05:31 BUN 8 mg/dL (9-20) L 09/11/21 05:31 Creatinine 0.6 mg/dL (0.8-1.3) L 09/11/21 05:31 Estimated GFR > 60 ml/min 09/11/21 05:31 BUN/Creatinine Ratio 13 % 09/11/21 05:31 Glucose 152 mg/dL (75-100) H 09/11/21 05:31 POC Glucose 111 mg/dL (70-105) H 09/13/21 11:41 Hemoglobin A1c 6.5 % (4-6) H 09/06/21 07:06 Calcium 8.7 mg/dL (8.4-10.2) 09/11/21 05:31 Total Bilirubin 0.70 mg/dL (0.1-1.2) 09/04/21 15:27 AST 13 units/L (5-40) 09/04/21 15:27 ALT 10 units/L (7-56) 09/04/21 15:27 Alkaline Phosphatase 77 units/L (35-129) 09/04/21 15:27 Total Protein 7.8 g/dL (6.3-8.2) 09/04/21 15:27 Albumin 4.1 g/dL (3.9-5) 09/04/21 15:27 Albumin/Globulin Ratio 1.1 % 09/04/21 15:27 Vancomycin Trough 10.8 ug/mL (5.0-20.0) 09/10/21 22:39 Blood Type A POSITIVE 09/07/21 04:00 Antibody Screen Negative 09/07/21 04:00 Microbiology: Microbiology 09/08/21 17:18 Peripheral/Venous Blood Culture - Preliminary NO GROWTH AFTER 4 DAYS 09/08/21 17:18 Peripheral/Venous Blood Culture - Preliminary NO GROWTH AFTER 4 DAYS Hernadez/IV: Voiding Method Urinal Active Medications - Current Medications Current Medications: Generic Name Dose Route Start Last Admin Trade Name Freq PRN Reason Stop Dose Admin Acetaminophen 650 mg 09/04/21 18:30 09/13/21 05:00 Acetaminophen 325 Mg Tab PO 650 mg Q4H PRN Administration Pain MILD(1-3)/Fever >100.5/LANIER Albuterol 2.5 mg 09/04/21 18:11 Albuterol 2.5 Mg/3 Ml Nebu IH Q4HRT PRN Shortness Of Breath Atenolol 25 mg 09/06/21 12:00 09/13/21 10:01 Atenolol 25 Mg Tab PO Not Given DAILY [facility] Atorvastatin Calcium 10 mg 09/06/21 22:00 09/12/21 21:25 Atorvastatin 10 Mg Tab PO 10 mg QHS NAZ Administration Clopidogrel Bisulfate 75 mg 09/08/21 10:00 09/13/21 09:59 Clopidogrel 75 Mg Tab PO 75 mg QDAY NAZ Administration Dextrose 50 ml 09/04/21 18:30 Dextrose 50% In Water (25gm) 50 Ml Syringe IV Q30MIN PRN Hypoglycemia Protocol Ergocalciferol 50,000 unit 09/10/21 10:00 09/10/21 10:02 Ergocalciferol (Vit D2) 50,000 Unit Cap PO 50,000 unit Mo@1000 NAZ Administration Heparin Sodium (Porcine) 5,000 unit 09/08/21 11:00 09/13/21 13:04 Heparin 5,000 Unit/1 Ml Vial SUB-Q 5,000 unit Q8HR NAZ Administration Hydromorphone HCl 0.25 mg 09/12/21 18:32 Hydromorphone 0.5 Mg/0.5 Ml Inj IV Q10MIN PRN Pain, Moderate (4-6) Hydromorphone HCl 0.5 mg 09/12/21 18:32 09/12/21 18:55 Hydromorphone 0.5 Mg/0.5 Ml Inj IV 0.5 mg Q10MIN PRN Administration Pain , Severe (7-10) Sodium Chloride 1,000 mls @ 42 mls/hr 09/04/21 19:00 09/13/21 13:05 Nacl 0.9% 1000 Ml IV 42 mls/hr DIRECT NAZ Administration Ceftriaxone Sodium 1 gm in 50 mls @ 100 mls/hr 09/06/21 15:00 09/13/21 09:57 Rocephin/Ns 1 Gm/50 Ml IV 09/14/21 23:59 100 mls/hr Q24HR NAZ Administration Protocol Vancomycin HCl 1 gm in 250 mls @ 167.007 mls/hr 09/09/21 13:00 09/13/21 13:03 Vancomycin/Ns 1 Gm/250 Ml IV 09/14/21 23:59 167.007 mls/hr Q8H NAZ Administration Insulin Human Isoph/Insulin Regular 6 unit 09/06/21 17:00 09/13/21 09:00 Insulin Nph/Regular 70/30 Inj SUB-Q 6 unit BIDDIAB NAZ Administration Insulin Human Lispro 0 unit 09/04/21 22:00 09/13/21 12:44 Insulin Lispro 100 Unit/Ml SUB-Q Not Given ACHS [facility] Protocol Lisinopril 10 mg 09/06/21 12:00 09/13/21 10:02 Lisinopril 10 Mg Tab PO Not Given QDAY [facility] Morphine Sulfate 4 mg 09/07/21 14:28 Morphine 4 Mg/1 Ml Inj IV Q4H PRN Pain , Severe (7-10) Morphine Sulfate 2 mg 09/07/21 14:28 Morphine 2 Mg/1 Ml Inj IV Q4H PRN Pain, Moderate (4-6) Naloxone HCl 0.1 mg 09/07/21 14:28 Naloxone 0.4 Mg/1 Ml Inj IV Q2MIN PRN Res Rate </= 8 or 02 SAT < 92% Ondansetron HCl 4 mg 09/04/21 18:30 Ondansetron 4 Mg/2 Ml Inj IV Q8H PRN Nausea And Vomiting Oxycodone/Acetaminophen 1 tab 09/04/21 18:30 09/12/21 21:25 Oxycodone /Acetaminophen 5-325mg Tab PO 1 tab Q6H PRN Administration Pain, Moderate (4-6) Sodium Chloride 10 ml 09/04/21 22:00 09/13/21 09:59 Sodium Chloride 0.9% 10 Ml Flush Syringe IV 10 ml BID NAZ Administration Sodium Chloride 10 ml 09/04/21 18:30 Sodium Chloride 0.9% 10 Ml Flush Syringe IV PRN PRN LINE FLUSH <EVETTE MANCINI - Last Filed: 09/13/21 16:32> Assessment and Plan Assessment and plan: I saw and evaluated the patient. I agree with the findings and the plan of care as documented in the Nurse Practitioner's~note, with the following corrections and additions. Hospitalist Physical - Constitutional Vitals: Temp Pulse Resp BP Pulse Ox 98.4 F 71 18 128/45 98 09/13/21 05:16 09/13/21 10:02 09/13/21 10:00 09/13/21 10:02 09/13/21 10:00 Results - Labs CBC & Chem 7: 09/11/21 05:31 09/11/21 05:31 Labs: Laboratory Last Values WBC 13.6 K/mm3 (4.5-11.0) H 09/11/21 05:31 RBC 3.58 M/mm3 (3.65-5.03) L 09/11/21 05:31 Hgb 11.5 gm/dl (11.8-15.2) L 09/11/21 05:31 Hct 34.5 % (35.5-45.6) L 09/11/21 05:31 MCV 96 fl (84-94) H 09/11/21 05:31 MCH 32 pg (28-32) 09/11/21 05:31 MCHC 33 % (32-34) 09/11/21 05:31 RDW 12.2 % (13.2-15.2) L 09/11/21 05:31 Plt Count 336 K/mm3 (140-440) 09/11/21 05:31 Lymph % (Auto) 13.9 % (13.4-35.0) 09/11/21 05:31 Haskell % (Auto) 7.9 % (0.0-7.3) H 09/11/21 05:31 Eos % (Auto) 2.4 % (0.0-4.3) 09/11/21 05:31 Baso % (Auto) 0.3 % (0.0-1.8) 09/11/21 05:31 Lymph # (Auto) 1.9 K/mm3 (1.2-5.4) 09/11/21 05:31 Haskell # (Auto) 1.1 K/mm3 (0.0-0.8) H 09/11/21 05:31 Eos # (Auto) 0.3 K/mm3 (0.0-0.4) 09/11/21 05:31 Baso # (Auto) 0.0 K/mm3 (0.0-0.1) 09/11/21 05:31 Seg Neutrophils % 75.5 % (40.0-70.0) H 09/11/21 05:31 Seg Neutrophils # 10.3 K/mm3 (1.8-7.7) H 09/11/21 05:31 PT 12.8 Sec. (12.2-14.9) 09/06/21 11:16 INR 0.87 (0.87-1.13) 09/06/21 11:16 APTT 34.8 Sec. (24.2-36.6) 09/06/21 11:16 Heparin Anti-Xa Level 0.19 U.I./ml (0.3-0.7) L 09/06/21 19:51 Sodium 142 mmol/L (137-145) 09/11/21 05:31 Potassium 3.7 mmol/L (3.6-5.0) 09/11/21 05:31 Chloride 101.9 mmol/L (98-107) 09/11/21 05:31 Carbon Dioxide 29 mmol/L (22-30) 09/11/21 05:31 Anion Gap 15 mmol/L 09/11/21 05:31 BUN 8 mg/dL (9-20) L 09/11/21 05:31 Creatinine 0.6 mg/dL (0.8-1.3) L 09/11/21 05:31 Estimated GFR > 60 ml/min 09/11/21 05:31 BUN/Creatinine Ratio 13 % 09/11/21 05:31 Glucose 152 mg/dL (75-100) H 09/11/21 05:31 POC Glucose 111 mg/dL (70-105) H 09/13/21 11:41 Hemoglobin A1c 6.5 % (4-6) H 09/06/21 07:06 Calcium 8.7 mg/dL (8.4-10.2) 09/11/21 05:31 Total Bilirubin 0.70 mg/dL (0.1-1.2) 09/04/21 15:27 AST 13 units/L (5-40) 09/04/21 15:27 ALT 10 units/L (7-56) 09/04/21 15:27 Alkaline Phosphatase 77 units/L (35-129) 09/04/21 15:27 Total Protein 7.8 g/dL (6.3-8.2) 09/04/21 15:27 Albumin 4.1 g/dL (3.9-5) 09/04/21 15:27 Albumin/Globulin Ratio 1.1 % 09/04/21 15:27 Vancomycin Trough 10.8 ug/mL (5.0-20.0) 09/10/21 22:39 Blood Type A POSITIVE 09/07/21 04:00 Antibody Screen Negative 09/07/21 04:00 Microbiology: Microbiology 09/08/21 17:18 Peripheral/Venous Blood Culture - Preliminary NO GROWTH AFTER 4 DAYS 09/08/21 17:18 Peripheral/Venous Blood Culture - Preliminary NO GROWTH AFTER 4 DAYS Hernadez/IV: Voiding Method Urinal Active Medications - Current Medications Current Medications: Generic Name Dose Route Start Last Admin Trade Name Freq PRN Reason Stop Dose Admin Acetaminophen 650 mg 09/04/21 18:30 09/13/21 05:00 Acetaminophen 325 Mg Tab PO 650 mg Q4H PRN Administration Pain MILD(1-3)/Fever >100.5/LANIER Albuterol 2.5 mg 09/04/21 18:11 Albuterol 2.5 Mg/3 Ml Nebu IH Q4HRT PRN Shortness Of Breath Atenolol 25 mg 09/06/21 12:00 09/13/21 10:01 Atenolol 25 Mg Tab PO Not Given DAILY NAZ Atorvastatin Calcium 10 mg 09/06/21 22:00 09/12/21 21:25 Atorvastatin 10 Mg Tab PO 10 mg QHS NAZ Administration Clopidogrel Bisulfate 75 mg 09/08/21 10:00 09/13/21 09:59 Clopidogrel 75 Mg Tab PO 75 mg QDAY NAZ Administration Dextrose 50 ml 09/04/21 18:30 Dextrose 50% In Water (25gm) 50 Ml Syringe IV Q30MIN PRN Hypoglycemia Protocol Ergocalciferol 50,000 unit 09/10/21 10:00 09/10/21 10:02 Ergocalciferol (Vit D2) 50,000 Unit Cap PO 50,000 unit Mo@1000 NAZ Administration Heparin Sodium (Porcine) 5,000 unit 09/08/21 11:00 09/13/21 13:04 Heparin 5,000 Unit/1 Ml Vial SUB-Q 5,000 unit Q8HR NAZ Administration Hydromorphone HCl 0.25 mg 09/12/21 18:32 Hydromorphone 0.5 Mg/0.5 Ml Inj IV Q10MIN PRN Pain, Moderate (4-6) Hydromorphone HCl 0.5 mg 09/12/21 18:32 09/12/21 18:55 Hydromorphone 0.5 Mg/0.5 Ml Inj IV 0.5 mg Q10MIN PRN Administration Pain , Severe (7-10) Sodium Chloride 1,000 mls @ 42 mls/hr 09/04/21 19:00 09/13/21 13:05 Nacl 0.9% 1000 Ml IV 42 mls/hr DIRECT NAZ Administration Ceftriaxone Sodium 1 gm in 50 mls @ 100 mls/hr 09/06/21 15:00 09/13/21 09:57 Rocephin/Ns 1 Gm/50 Ml IV 09/14/21 23:59 100 mls/hr Q24HR NAZ Administration Protocol Vancomycin HCl 1 gm in 250 mls @ 167.007 mls/hr 09/09/21 13:00 09/13/21 13:03 Vancomycin/Ns 1 Gm/250 Ml IV 09/14/21 23:59 167.007 mls/hr Q8H NAZ Administration Insulin Human Isoph/Insulin Regular 6 unit 09/06/21 17:00 09/13/21 09:00 Insulin Nph/Regular 70/30 Inj SUB-Q 6 unit BIDDIAB NAZ Administration Insulin Human Lispro 0 unit 09/04/21 22:00 09/13/21 12:44 Insulin Lispro 100 Unit/Ml SUB-Q Not Given ACHS NAZ Protocol Lisinopril 10 mg 09/06/21 12:00 09/13/21 10:02 Lisinopril 10 Mg Tab PO Not Given QDAY NAZ Morphine Sulfate 4 mg 09/07/21 14:28 Morphine 4 Mg/1 Ml Inj IV Q4H PRN Pain , Severe (7-10) Morphine Sulfate 2 mg 09/07/21 14:28 Morphine 2 Mg/1 Ml Inj IV Q4H PRN Pain, Moderate (4-6) Naloxone HCl 0.1 mg 09/07/21 14:28 Naloxone 0.4 Mg/1 Ml Inj IV Q2MIN PRN Res Rate </= 8 or 02 SAT < 92% Ondansetron HCl 4 mg 09/04/21 18:30 Ondansetron 4 Mg/2 Ml Inj IV Q8H PRN Nausea And Vomiting Oxycodone/Acetaminophen 1 tab 09/04/21 18:30 09/12/21 21:25 Oxycodone /Acetaminophen 5-325mg Tab PO 1 tab Q6H PRN Administration Pain, Moderate (4-6) Sodium Chloride 10 ml 09/04/21 22:00 09/13/21 09:59 Sodium Chloride 0.9% 10 Ml Flush Syringe IV 10 ml BID NAZ Administration Sodium Chloride 10 ml 09/04/21 18:30 Sodium Chloride 0.9% 10 Ml Flush Syringe IV PRN PRN LINE FLUSH
--- NOTE | 2021-09-13 15:14 | Progress Note ---
Assessment and Plan Cultures: None A/P: 66-year-old male with diabetes, used to smoke when he was in his 20s was adm itted to the hospital with soreness in his right foot and darkening of his right second toe concerning for gangrene: #Right second toe gangrene and associated osteomyelitis, peripheral vascular disease: Osteomyelitis seems more ischemic. Has significant peripheral vascular disease and is planned for right JOB INTERVIEWER and SFA endarterectomy in the operating room. Patient has also been seen by Dr. Sparks and has been recommended amputation of the toe. #Peripheral vascular disease #Diabetes mellitus type 2 Recs: -Empiric ceftriaxone, vancomycin, target vancomycin trough between 10 to 15 mcg/mL -s/p surgical revascularization -s/p amputation, ok to DC with Omnicef 300mg q12h for 3 days Yuly Payan MD [facility] O: [phone] F: [phone] Subjective Date of service: 09/13/21 Principal diagnosis: Gangrene of the second toe of the right foot Interval history: Afebrile, no acute change. Status post amputation of the right second toe. Objective - Exam Narrative Exam: Physical Exam: Constitutional: Alert, cooperative. No acute distress Head, Ears, Nose: Normocephalic, atraumatic. External ears, nose normal Eyes: Conjunctivae/corneas clear. No icterus. No ptosis. Neck: Supple, no meningeal signs Oral: Mask Cardiovascular: S1, S2 + Respiratory: Good air entry, clear to auscultation bilaterally GI: Soft, non-tender; bowel sounds normal. No peritoneal signs Musculoskeletal: Right leg distally with skin darkening, second toe with g angrenous changes. Skin: No rash or abscess Hem/Lymphatic: No palpable cervical or supraclavicular nodes. Psych: Mood ok. Affect normal Neurological: Awake, alert, oriented. No gross abnormality - Constitutional Vitals: Vital Signs Temp Pulse Resp BP Pulse Ox 98.4 F 71 18 128/45 98 09/13/21 05:16 09/13/21 10:02 09/13/21 10:00 09/13/21 10:02 09/13/21 10:00 Temperature -Last 24 Hours Temperature 98.4 F Temperature 98.5 F Temperature 97.9 F Temperature 98.4 F Temperature 97 F Temperature 98.3 F - Labs CBC & Chem 7: 09/11/21 05:31 09/11/21 05:31 Labs: Abnormal lab results 09/12/21 09/12/21 09/12/21 Range/Units 17:11 18:34 20:48 POC Glucose 135 H 129 H 169 H (70-105) mg/dL 09/13/21 09/13/21 Range/Units 07:37 11:41 POC Glucose 187 H 111 H (70-105) mg/dL
[2021-09-14] MEDS: VANCOMYCIN/NS 1 GM/250 ML 1 GM/250 ML BAG IV SCH ×3 (03:55→13:47)
[2021-09-14] MEDS: HEPARIN 5,000 UNIT/1 ML VIAL SUB-Q SCH ×2 (05:20→13:48)
[2021-09-14] MEDS: INSULIN LISPRO 100 UNIT/ML SUB-Q SCH ×2 (08:39→11:47)
[2021-09-14] MEDS: INSULIN NPH/REGULAR 70/30 INJ SUB-Q SCH (08:39)
[2021-09-14] MEDS: LISINOPRIL 10 MG TAB PO SCH (09:56)
[2021-09-14] MEDS: atenoloL 25 MG TAB PO SCH (09:57)
[2021-09-14] MEDS: cefTRIAXone/NS 1 GM/50 ML 1 GM/50 ML BAG IV SCH (09:57)
[2021-09-14] MEDS: CLOPIDOGREL 75 MG TAB PO SCH (09:57)
[2021-09-14 09:58] VITALS: BP 123/49
--- NOTE | 2021-09-14 11:58 | Discharge Summary ---
Providers - Providers Date of Admission: 09/04/21 18:12 Date of discharge: 09/14/21 Attending physician: JEREMÍAS PORTER MD 09/04/21 17:13 Consult to Physician [CONS] Urgent Comment: Consulting Provider: MEHNAZ NULL Physician Instructions: Reason For Exam: necrosis/osteomyelitis right toe 09/05/21 12:15 Consult to Physician [CONS] Routine Comment: Consulting Provider: CONCETTA CASTRO Physician Instructions: Reason For Exam: right 2nd toe gangrene, please eval for amputation 09/05/21 14:43 Consult to Physician [CONS] Routine Comment: Consulting Provider: ROBBY HULL Physician Instructions: Reason For Exam: gangrene R 2nd toe, PAD - please eval for angio 09/06/21 09:30 Consult to Physician [CONS] Routine Comment: adolfo/ tanvir Consulting Provider: LIZZETH BERMEO Physician Instructions: Reason For Exam: gangrene 2nd toe 09/13/21 07:50 Consult to Case Management [CONS] Routine Services Needed at Discharge: Other Notified:: CM Additional Physician Instructions: needs home PT, woundcare, Physical Therapy Evaluation and Treat [CONS] Routine Comment: Reason For Exam: eval and treat Primary care physician: [facility] Hospitalization Reason for admission: foot pain Condition: Stable Hospital course: Assessment and plan: The patient is a 66-year-old male with a history of diabetes mellitus type II who states that approximately 2 weeks ago he hit his second toe resulting in a wound. He initially presented to the emergency department on 08/29/2021 however he left AMA. W/u included xray of the foot which revealed osteomyelitis of the right 2nd toe. He represented on 09/05/2021 with complaints of the wound progressively worsening with pain and turning black. He denied any fever or chills. He denied any history of previous claudication. He stated he smoked in his 20s however he does not currently smoke. Hospital course 09/06/2021. Patient for right lower extremity angiography per vascular surgery. Right lower extremity angiography demonstrating 1cm marble of exophytic calcific atherosclerotic disease just distal to the origin of the SFA causing significantly decreased flow distally. This is not ideally amenable to percutaneous revascularization and the patient will be scheduled for right common femoral artery and SFA endarterectomy tomorrow scheduling in the OR permitting. Continue tight glycemic control. Follow-up hemoglobin A1c. Continue local wound care. Surgery following. ID consulted. Continue IV antibiotics of Unasyn for now. 09/07/2021. Patient for endarterectomy today per vascular surgery. Continue tight glycemic control. Follow-up hemoglobin A1c. Continue local wound care. Surgery following. ID recommends empiric ceftriaxone and vancomycin. Patient for amputation likely next week. We will stop antibiotics 48 hours after procedure. 09/08: Patient is postop day 1 status post right femoral popliteal bypass tolerated well no acute distress. We will continue current management including antibiotics at this patient to stop in 24hours. Incision site remains intact. per General surgeon "Right 2nd toe amputation could be scheduled for 09/10/21 or if needed, pt can be discharged and amputation can be scheduled as an outpt. If discharged, have pt f/u in my Wound Clinic on 09/12/21." I have discussed with nursing staff will transfer patient to the medical floor if okay with the vascular surgeon. Patient continues on Plavix. Awaiting vascular physicians input on possible anticoagulation for DVT prophylaxis at minimum. 09/09/2021. Patient awaiting amputation of his right second toe. Continue vancomycin per ID recommendations. Patient with recent femoral-popliteal bypass which he tolerated well 09/10/2021. Continue IV antibiotics and wound care. Await vascular surgery for amputation of right second toe. Continue pain control and supportive care 09/11/2021: TMA post poned to tomorrow due to lack of OR staff. 09/12/2021: Continue treatment with abx, can d/c 48hrs post op per ID. TMA scheduled for today. Will follow post op. 09/14: s/p TMA. ok to d/c. no needs. will send home with [facility] and walking cane. Rx for omnicef 300 mg q12 hr x 3 days transmitted to patient pharmacy Assessment and Plan: #Gangrene of right second toe s/p urgical amputation Pain control with Percocet, morphine as needed #Osteomyelitis of right second toe s/p amputation #Type 2 Diabetes with Hyperglycemia - a1c: 6.5 -7030 NPH insulin 6 units twice daily, SSI - blood glucose goal 140-180 while inpatient - continue to monitor, type glycemic control while patient is in hospital #Peripheral vascular disease Right C[employer] RAILROAD and SFA endarterectomy. Statin, Plavix #Essential hypertension Atenolol 25 mg p.o. daily Lisinopril 10 mg p.o. daily Disposition: 06 HOME HEALTH CARE SERVICE Final Discharge Diagnosis (Prints w/discharge instructions): Osteomyelitis, gangrene of right foot, peripheral vascular disease Time spent for discharge: 35 Core Measure Documentation - Palliative Care Palliative Care/ Comfort Measures: Not Applicable - Core Measures Any of the following diagnoses?: none Exam - Physical Exam Narrative exam: Physical Exam: Constitutional: Alert, cooperative. No acute distress Head, Ears, Nose: Normocephalic, atraumatic. External ears, nose normal Eyes: Conjunctivae/corneas clear. No icterus. No ptosis. Neck: Supple, no meningeal signs Oral: Mask Cardiovascular: S1, S2 + Respiratory: Good air entry, clear to auscultation bilaterally GI: Soft, non-tender; bowel sounds normal. No peritoneal signs Musculoskeletal: s/p rt tma Skin: No rash or abscess Hem/Lymphatic: No palpable cervical or supraclavicular nodes. Psych: Mood ok. Affect normal Neurological: Awake, alert, oriented. No gross abnormality - Constitutional Vitals: Temp Pulse Resp BP Pulse Ox 99.6 F 80 18 123/49 98 09/14/21 04:08 09/14/21 04:08 09/14/21 04:08 09/14/21 09:57 09/14/21 04:08 Plan Follow up with: MANSOOR RANDHAWA MD [Primary Care Provider] - 7 Days KURTIS MILLER MD [Staff Physician] - 7 Days CONCETTA CASTRO MD [Staff Physician] - 7 Days SUMMER CRUZ MD [Staff Physician] - 7 Days Prescriptions: Cefdinir 300 mg PO Q12H 3 Days #6 cap
--- NOTE | 2021-09-14 15:17 | Progress Note ---
Assessment and Plan Cultures: None A/P: 66-year-old male with diabetes, used to smoke when he was in his 20s was adm itted to the hospital with soreness in his right foot and darkening of his right second toe concerning for gangrene: #Right second toe gangrene and associated osteomyelitis, peripheral vascular disease: Osteomyelitis seems more ischemic. Has significant peripheral vascular disease and is planned for right [employer] and SFA endarterectomy in the operating room. Patient has also been seen by Dr. Sparks and has been recommended amputation of the toe. #Peripheral vascular disease #Diabetes mellitus type 2 Recs: -Empiric ceftriaxone, vancomycin, target vancomycin trough between 10 to 15 mcg/mL -s/p surgical revascularization -s/p amputation, ok to DC with Omnicef 300mg q12h for 3 days Yuly Payan MD [facility] O: [phone] F: [phone] Subjective Date of service: 09/14/21 Principal diagnosis: Gangrene of the second toe of the right foot Interval history: Afebrile, no acute change. Objective - Exam Narrative Exam: Physical Exam: Constitutional: Alert, cooperative. No acute distress Head, Ears, Nose: Normocephalic, atraumatic. External ears, nose normal Eyes: Conjunctivae/corneas clear. No icterus. No ptosis. Neck: Supple, no meningeal signs Oral: Mask Cardiovascular: S1, S2 + Respiratory: Good air entry, clear to auscultation bilaterally GI: Soft, non-tender; bowel sounds normal. No peritoneal signs Musculoskeletal: Right leg distally with skin darkening, second toe with gangrenous changes. Skin: No rash or abscess Hem/Lymphatic: No palpable cervical or supraclavicular nodes. Psych: Mood ok. Affect normal Neurological: Awake, alert, oriented. No gross abnormality - Constitutional Vitals: Vital Signs Temp Pulse Resp BP Pulse Ox 99.6 F 80 18 123/49 98 09/14/21 04:08 09/14/21 04:08 09/14/21 04:08 09/14/21 09:57 09/14/21 13:21 Temperature -Last 24 Hours Temperature 99.6 F Temperature 100.1 F Temperature 99.0 F - Labs CBC & Chem 7: 09/11/21 05:31 09/11/21 05:31 Labs: Abnormal lab results 09/13/21 09/13/21 09/14/21 Range/Units 16:41 20:53 08:03 POC Glucose 150 H 152 H 190 H (70-105) mg/dL 09/14/21 Range/Units 11:45 POC Glucose 149 H (70-105) mg/dL
== END 2021-09-14 16:45 | disposition home health service (06) | DRG 253 ==
LOC: ED 09:53 → 3A 18:12 → IMCU 09-07 15:19 → 3A 09-08 14:57
PROVIDERS: ADMIT Internal Medicine; ATTEND Internal Medicine
PROC: B41F1ZZ Fluoroscopy of Right Lower Extremity Arteries using Low Osmolar Contrast (ICD-10-PCS; 2021-09-06)
PROC: 04CK0ZZ Extirpation of Matter from Right Femoral Artery, Open Approach (ICD-10-PCS; 2021-09-07)
PROC: 04UK07Z Supplement Right Femoral Artery with Autologous Tissue Substitute, Open Approach (ICD-10-PCS; 2021-09-07)
PROC: 0Y6R0Z0 Detachment at Right 2nd Toe, Complete, Open Approach (ICD-10-PCS; principal; 2021-09-12)
DX: E11.52 Type 2 diabetes mellitus with diabetic peripheral angiopathy with gangrene (principal); I96 Gangrene, not elsewhere classified; M86.8X7 Other osteomyelitis, ankle and foot; L03.031 Cellulitis of right toe; Z83.3 Family history of diabetes mellitus; Z82.49 Family history of ischemic heart disease and other diseases of the circulatory system; E11.69 Type 2 diabetes mellitus with other specified complication; I10 Essential (primary) hypertension; E11.65 Type 2 diabetes mellitus with hyperglycemia
CPT/HCPCS: 36246; 36415; 75625; 75710; 80048; 80053; 80202; 82962; 83036; 85014; 85018; 85025; 85027; 85049; 85520; 85610; 85730; 86850; 86900; 86901; 87040; 88302; 88304; 88305; 88311; 94640; G0378; J1815; J3490; Q0177; Q9967; C1751; C1768; C1769; C1887; J0295; J0690; J0696; J1170; J1644; J2250; J2370; J2405; J2704; J3010; J3370; J7030; J7040; J7120